=== PATIENT | female | born 1985 | race Caucasian/White ===

== ENCOUNTER 2017-05-26 10:23 | Emergency (ER) | payer OTHER ==
[2017-05-26 10:45] VITALS: BP 126/52
--- NOTE | 2017-05-26 11:15 | UC ---
Back Pain HPI - HPI Summary HPI Summary: PICKED UP HER 9 MONTH OLD SEVERAL HOURS AGO AND FELT A POP. NOW HAS LOW BACK PAIN. NO NUMBNESS/TINGLING OR SADDLE ANESTHESIA. NO H/O CHRONIC BACK PAIN. TOOK A PERCOCET WHICH SHE HAD FROM WHEN SHE WENT HOME POST AND IT HELPED. - History of Current Complaint Chief Complaint: UCBackPain Stated Complaint: BACK PAIN Time Seen by Provider: 05/26/17 10:59 Hx Obtained From: Patient, Family/Casing Finisher And Stuffer - DAD Hx Last Menstrual Period: IUD in place Onset/Duration: Sudden Onset, Lasting Hours, Still Present Timing: Constant Severity Initially: Moderate Severity Currently: Moderate Pain Intensity: 4 Pain Scale Used: 0-10 Numeric Back Pain: Is Discrete @ - MID LOW BACK Character: Sharp Aggravating: Movement Alleviating: Position Associated Signs And Symptoms: Positive: Negative - Allergies/Home Medications Allergies/Adverse Reactions: Allergies Allergy/AdvReac Type Severity Reaction Status Date / Time Morphine Allergy Severe Anaphylatic Verified 09/11/16 17:08 Shock Hydromorphone [From Dilaudid] Allergy Intermediate Rash Verified 09/11/16 17:08 PMH/Surg Hx/FS Hx/Imm Hx Previously Healthy: Yes - Surgical History Surgical History: None Surgery Procedure, Year, and Place: 2 c-sections; plate in jaw and rods in both femurs; wisdom teeth - Family History Known Family History: Positive: None Negative: Renal Disease - Social History Alcohol Use: None Substance Use Type: None Smoking Status (MU): Never Smoked Tobacco - Immunization History Most Recent Influenza Vaccination: 08/23/16 Most Recent Tetanus Shot: 06/19/16 Most Recent Pneumonia Vaccination: none Review of Systems Constitutional: Negative Skin: Negative Respiratory: Negative Cardiovascular: Negative Gastrointestinal: Negative Musculoskeletal: Decreased ROM, Myalgia All Other Systems Reviewed And Are Negative: Yes Physical Exam Triage Information Reviewed: Yes Appearance: Well-Appearing, Well-Nourished, Pain Distress - MODERATE Vital Signs: Initial Vital Signs Temp 98.7 F 05/26/17 10:42 Pulse 85 05/26/17 10:42 Resp 14 05/26/17 10:42 BP 126/52 05/26/17 10:42 Pulse Ox 98 05/26/17 10:42 Vital Signs Reviewed: Yes Eyes: Positive: Conjunctiva Clear ENT: Positive: Hearing grossly normal Neck: Positive: Supple Respiratory: Positive: No respiratory distress, No accessory muscle use Cardiovascular: Positive: Pulses Normal Abdomen Description: Positive: Soft Musculoskeletal: Positive: No Edema, ROM Limited @ - BACK Neurological: Positive: Alert Psychological: Positive: Age Appropriate Behavior Skin: Negative: rashes Diagnostics - Radiology LUMBAR SPINE XRAY Xray Interpretation: No Acute Changes - No radiographic evidence of acute fracture or dislocation involving the lumbar spine. Radiology Interpretation Completed By: Radiologist Back Pain Course/Dx - Differential Dx/Diagnosis Provider Diagnoses: ACUTE LOW BACK STRAIN Discharge - Discharge Plan Condition: Stable Disposition: HOME Prescriptions: Cyclobenzaprine TAB* [Flexeril TAB*] 10 mg PO BID PRN #30 tab PRN Reason: Pain Naproxen [Naproxen EC] 500 mg PO BID PRN #30 tab PRN Reason: Pain Patient Education Materials: Low Back Strain (ED), Lower Back Exercises (ED) Referrals: Sunshine Gorman MD [Primary Care Provider] - Additional Instructions: NO ACUTE CHANGES ON LUMBAR SPINE XRAY. BE SURE TO GO THROUGH SLOW RANGE OF MOTION AND STRETCHING EXERCISES DAILY YOU ARE ABLE TO PREVENT STIFFENING UP AND MAKING THE DISCOMFORT WORSE. SEEK FOLLOW-UP WITH YOUR PCP IF YOU ARE NOT IMPROVING EXPECTED OVER THE NEXT WEEK OR SO.
[2017-05-26] MEDS ORDERED: Ibuprofen TAB* 600 MG PO ONE (11:17)
--- NOTE | 2017-05-26 12:04 | RAD ---
INDICATION: Intense low back pain since lifting a 9-month-old child the previous night COMPARISON: CT abdomen pelvis September 11, 2016 TECHNIQUE: 3 views of the lumbar spine were obtained. FINDINGS: On the AP view there is very slight dextroconvex curvature with the apex at the L2/L3 intervertebral disc space. On the lateral view there is nonspecific straightening of the normal lumbar lordosis. The lumbar vertebra and facet joints are otherwise appropriately aligned. No acute fracture or dislocation is identified. Incidentally noted is a intrauterine device at the midline pelvis. IMPRESSION: No radiographic evidence of acute fracture or dislocation involving the lumbar spine.
== END 2017-05-26 12:25 | disposition home or self-care (01) ==
LOC: UCEAST 10:23
DX: S39.012A Strain of muscle, fascia and tendon of lower back, initial encounter (principal); Z88.5 Allergy status to narcotic agent; X50.0XXA Overexertion from strenuous movement or load, initial encounter
CPT/HCPCS: 72100; 99212; A9270-GY; G0463

== ENCOUNTER 2017-12-16 07:31 | Emergency (ER) | payer OTHER ==
[2017-12-16 07:52] VITALS: BP 92/56
--- NOTE | 2017-12-16 09:10 | UC ---
Ly Méndez Gabriel, scribed for Maura Guerra DO on 12/16/17 at 0824 . Complaint Female HPI - HPI Summary HPI Summary: This patient is a 32 year old F presenting to [facility] [place] with a chief complaint of hematuria since last night at 1999. Patient reports a headache but suffers from them occasionally. Patient denies dysuria, lower back pain, flank pain, fever, ABD pain, pelvic pain, n/v/d, fever, and chills. Pt states when she was a child she saw a specialist for this as well as protein in her urine but was not diagnosed and problem resolved spontaneously. Pt took ibuprofen for a MANNING last night after she was urinating blood. - History Of Current Complaint Chief Complaint: UCGU Stated Complaint: BLOOD IN URINE Time Seen by Provider: 12/16/17 08:07 Hx Obtained From: Patient Hx Last Menstrual Period: 2 weeks ago Onset/Duration: Lasting Days - 1, Still Present Timing: Constant Severity Initially: Severe Severity Currently: Severe Pain Intensity: 0 Pain Scale Used: 0-10 Numeric Associated Signs And Symptoms: Positive: Negative - dysuria, lower back pain, flank pain, fever, ABD pain, pelvic pain, n/v/d, fever, chills. - Allergies/Home Medications Allergies/Adverse Reactions: Allergies Allergy/AdvReac Type Severity Reaction Status Date / Time hydromorphone Allergy Rash Verified 12/16/17 07:44 morphine Allergy Anaphylatic Verified 12/16/17 07:44 Shock Home Medications: Home Medications Ibuprofen 600 mg PO Q6HR PRN 12/16/17 [History Confirmed 12/16/17] Mini Pill Control Pill 1 tab PO DAILY 12/16/17 [History] Vitamin TAB* 1 tab PO DAILY 12/16/17 [History Confirmed 12/16/17] PMH/Surg Hx/FS Hx/Imm Hx Other GI/ History: hematuria Other History Of: Negative For: HIV, Hepatitis B - Surgical History Surgical History: None Surgery Procedure, Year, and Place: 3 c-sections; plate in jaw and rods in both femurs; wisdom teeth - Family History Known Family History: Negative: Renal Disease, Respiratory Disease, Seizure Disorder - Social History Lives: With Family Alcohol Use: None Substance Use Type: None Smoking Status (MU): Never Smoked Tobacco - Immunization History Most Recent Influenza Vaccination: 08/23/16 Most Recent Tetanus Shot: 06/19/16 Most Recent Pneumonia Vaccination: none Review of Systems Constitutional: Negative - fever chills Gastrointestinal: Negative - ABD pain Genitourinary: Hematuria Neurological: Headache All Other Systems Reviewed And Are Negative: Yes Physical Exam Triage Information Reviewed: Yes Vital Signs: Initial Vital Signs Temp 98.6 F 12/16/17 07:47 Pulse 74 12/16/17 07:47 Resp 18 12/16/17 07:47 BP 92/56 12/16/17 07:47 Pulse Ox 100 12/16/17 07:47 Vital Signs Reviewed: Yes Abdominal Exam: Normal Abdomen Description: Positive: Nontender, Soft. Negative: CVA Tenderness (R), CVA Tenderness (L), Distended, Guarding, McBurney's Point Tenderness, Peritoneal Signs - Additional Comments Appearance: Well-Appearing, No Pain Distress, Well-Nourished Eyes: conjunctiva clear, no discharge ENT: Hearing grossly normal, no muffled/hoarse voice. Hearing grossly normal, normal voice. Neck: Normal, Supple Respiratory/Lung Sounds: Lungs clear, Normal breath sounds, No respiratory distress, No accessory muscle use Cardiovascular: RRR, No murmur Abdomen (if she checks): Nontender, Soft, no guarding, not distended Bowel Sounds (if she checks): Present Musculoskeletal: Normal Neurological: Alert, muscle tone normal Psychiatric:Normal, age appropriate behavior Skin: Normal, Warm, Dry, Normal color Complaint Female Dx - Course Course Of Treatment: Pts urine will be examined in further due to it being too dark for a dip. Patient will be discharged and follow up from PCP. The patient is agreeable with this plan. Medications reviewed. Allergies reviewed. Pt was diagnosed with hematuria and UTI. Medications given. - Differential Dx/Diagnosis Provider Diagnoses: hematuria Discharge - Discharge Plan Condition: Stable Disposition: HOME Prescriptions: Cephalexin CAP* [Keflex CAP*] 500 mg PO BID #14 cap Patient Education Materials: Urinary Tract Infection in Women (DC), Hematuria ( ED) Referrals: Sunshine Gorman MD [Primary Care Provider] - 1 Day Additional Instructions: WE ARE SENDING YOUR URINE FOR MICROSCOPY AND CULTURE. THE RESULTS WILL BE SENT TO YOU PCP. YOU WILL BE CALLED WITH ANY CONCERNING RESULTS. CEPHALEXIN: The antibiotic you've been prescribed is a member of the cephalosporin class. This type of antibiotic covers a wide variety of infections, including those of the skin, lungs, and urinary tract. It's useful for staph infections. This antibiotic is slightly similar to the penicillin family. In rare cases , a person who is allergic to penicillin will also be allergic to this medication. If you have had a severe allergic reaction to penicillin, and have not taken this antibiotic since that time, notify your doctor. Antibiotics which cover many germs ("broad spectrum" antibiotics) are more likely to cause diarrhea or "yeast" infections. Women prone to vaginal yeast problems may suffer an attack after taking this antibiotic. In infants, oral thrush (white spots "stuck" on the cheek) or yeast diaper rash may result. See your doctor if these problems occur. Call at once if you develop itching, hives , shortness of breath, or lightheadedness. ANYTIME YOU TAKE AN ANTIBIOTIC, IT IS IMPORTANT TO REPLENISH THE BODY'S SUPPLY OF "GOOD BACTERIA." YOU CAN GET GOOD BACTERIA FROM HIGH QUALITY CULTURED FOODS SUCH LOCAL YOGURT, SOUR KRAUT, ELENI ALISA, NATURALLY FERMENTED PICKLES AND PROBIOTIC DRINKS. YOU CAN ALSO GET GOOD BACTERIA FROM A PROBIOTIC SUPPLEMENT. The documentation as recorded by the Ly jones Gabriel accurately reflects the service I personally performed and the decisions made by me, Maura Guerra DO.
[2017-12-16 14:27] LABS: Urine Appearance Turbid; Urine Blood 3+ (Negative); Urine Color Amber; Urine Ketones Negative (Negative); Urine Protein 2+(100 mg/dL) (Negative); Urine Specific Gravity 1.035 (1.010-1.030); Urine Urobilinogen Negative (Negative)
--- NOTE | 2017-12-18 17:31 | UC ---
- Progress Note Progress Note: Pt's U/A with 2+ protein and 3+ blood. No sign of infection, but was placed on keflex. Please see how she is feeling. Needs f/u with her PCP within 1 week.
== END 2017-12-16 08:46 | disposition home or self-care (01) ==
LOC: UCEAST 07:31
DX: R31.9 Hematuria, unspecified (principal)
CPT/HCPCS: 81003; 81015; 99212; G0463

== ENCOUNTER → 2018-08-09 12:53 | Emergency (ER) | payer OTHER ==
[2018-08-09 14:35] VITALS: BP 114/82
[2018-08-09 14:57] LABS: Hematocrit 36 % (35-47); Hemoglobin 12.2 g/dl (12.0-16.0); Mean Corpuscular HGB Conc 34 g/dl (31-36); Mean Corpuscular Hemoglobin 30 pg (27-31); Mean Corpuscular Volume 88 fL (80-97); Mean Platelet Volume 10.3 um3 (7.4-10.4); Platelet Count 147 10^3/ul (150-450); Red Blood Count 4.11 10^6/ul (4.00-5.40); Red Cell Distribution Width 14 % (10.5-15); White Blood Count 7.1 10^3/ul (3.5-10.8)
[2018-08-09 15:16] LABS: EGFR Non-African American 129.2 (>60)
[2018-08-09 15:17] LABS: Urine Appearance Cloudy; Urine Blood 2+ (Negative); Urine Color Yellow; Urine Ketones Negative (Negative); Urine Protein Negative (Negative); Urine Red Blood Cell 3+(>10/hpf) (Absent); Urine Urobilinogen Negative (Negative); Urine White Blood Cell 1+(6-10/hpf) (Absent)
--- NOTE | 2018-08-09 15:17 | ED ---
- HPI Summary HPI Summary: This pt is a 33 y/o female, currently 5 weeks , presenting to [facility] [place]/o vaginal bleeding since this morning. Pt reports she began spotting this morning around 06:00, which was described as very light pink. She states that as the day progressed spotting became darker. In the ED currently pt notes she had vaginal bleeding with quite a lot of blood. Additionally reports abdominal cramping and nausea. Denies vomiting, diarrhea, constipation. Pt has had miscarriages in the past. LMP: 07/08/18. - History of Current Complaint Chief Complaint: EDVaginalBleeding Stated Complaint: 5 WKS PREG/CRAMPING & SPOTTING Time Seen by Provider: 08/09/18 15:03 Hx Obtained From: Patient Chief Complaint: Pain, Vaginal Bleeding Onset/Duration: Started Hours Ago, Still Present Timing: Lasting Hours Current Severity: Moderate Pain Intensity: 6 Location of Pain: Diffuse Character: Cramping Aggravating Factors: Nothing Alleviating Factors: Nothing Associated Signs and Symptoms: Positive: Nausea, Vaginal Bleeding or Discharge - POS: vaginal bleeding. Negative: Fever, Vomiting, Other: - diarrhea, constipation - Assessment Hx Now: Yes Hx : 6 Hx Para: 3 Hx Last Menstrual Period: 07/08/18 - Additional Pertinent History Maternal Blood Type and Rh: O Positive - Allergies/Home Medications Allergies/Adverse Reactions: Allergies Allergy/AdvReac Type Severity Reaction Status Date / Time hydromorphone Allergy Rash Verified 08/09/18 13:01 morphine Allergy Anaphylatic Verified 08/09/18 13:01 Shock PMH/Surg Hx/FS Hx/Imm Hx Endocrine/Hematology History: Denies: Hx Diabetes, Hx Thyroid Disease Cardiovascular History: Denies: Hx Hypertension Respiratory History: Denies: Hx Asthma, Hx Chronic Obstructive Pulmonary Disease (COPD) GI History: Denies: Hx Ulcer Neurological History: Reports: Hx Migraine - since childhood Denies: Other Neuro Impairments/Disorders Psychiatric History: Reports: Hx Anxiety, Hx Depression, Other Psychiatric Issues/Disorders - migraine with aura - Surgical History Surgery Procedure, Year, and Place: 3 c-sections; plate in jaw and rods in both femurs; wisdom teeth Infectious Disease History: No Infectious Disease History: Denies: Hx Clostridium Difficile, Hx Hepatitis, Hx Human Immunodeficiency Virus (HIV), Hx of Known/Suspected MRSA, Hx Shingles, Hx Tuberculosis, Hx Known/ Suspected VRE, Hx Known/Suspected VRSA, History Other Infectious Disease, Traveled Outside the [place] in Last 30 Days - Family History Known Family History: Negative: Renal Disease, Respiratory Disease, Seizure Disorder - Social History Alcohol Use: None Substance Use Type: Reports: None Smoking Status (MU): Never Smoked Tobacco Review of Systems Negative: Fever, Chills Positive: Abdominal Pain, Nausea. Negative: Vomiting, Diarrhea, Other - constipation Genitourinary: Other - vaginal bleeding All Other Systems Reviewed And Are Negative: Yes Physical Exam - Summary Physical Exam Summary: VITAL SIGNS: Reviewed. GENERAL: Patient is a well-developed and nourished female who is lying comfortable in the stretcher. Patient is not in any acute respiratory distress. HEAD AND FACE: No signs of trauma. No ecchymosis, hematomas or skull depressions. No sinus tenderness. EYES: PERRLA, EOMI x 2, No injected conjunctiva, no nystagmus. EARS: Hearing grossly intact. Ear canals and tympanic membranes are within normal limits. MOUTH: Oropharynx within normal limits. NECK: Supple, trachea is midline, no adenopathy, no JVD, no carotid bruit, no c- spine tenderness, neck with full ROM. CHEST: Symmetric, no tenderness at palpation LUNGS: Clear to auscultation bilaterally. No wheezing or crackles. CVS: Regular rate and rhythm, S1 and S2 present, no murmurs or gallops appreciated. ABDOMEN: Soft, non-tender. No signs of distention. No rebound, no guarding, and no masses palpated. Bowel sounds are normal. EXTREMITIES: FROM in all major joints, no edema, no cyanosis or clubbing. NEURO: Alert and oriented x 3. No acute neurological deficits. Speech is normal and follows commands. SKIN: Dry and warm - Physical Exam Triage Information Reviewed: Yes Vital Signs On Initial Exam: Initial Vitals Temp Pulse Resp BP Pulse Ox 97.8 F 82 18 111/61 99 08/09/18 12:58 08/09/18 12:58 08/09/18 12:58 08/09/18 12:58 08/09/18 12:58 Vital Signs Reviewed: Yes Diagnostics - Vital Signs Vital Signs Temp Pulse Resp BP Pulse Ox 08/09/18 14:34 97.4 F 74 18 114/82 100 08/09/18 12:58 97.8 F 82 18 111/61 99 - Laboratory Lab Results: Lab Results 08/09/18 Range/Units 14:36 WBC 7.1 (3.5-10.8) 10^3/ul RBC 4.11 (4.00-5.40) 10^6/ul Hgb 12.2 (12.0-16.0) g/dl Hct 36 (35-47) % MCV 88 (80-97) fL MCH 30 (27-31) pg MCHC 34 (31-36) g/dl RDW 14 (10.5-15) % Plt Count 147 L (150-450) 10^3/ul MPV 10.3 (7.4-10.4) um3 Neut % (Auto) Pending Lymph % (Auto) Pending [place] % (Auto) Pending Eos % (Auto) Pending Baso % (Auto) Pending Absolute Neuts (auto) Pending Absolute Lymphs (auto) Pending Absolute Monos (auto) Pending Absolute Eos (auto) Pending Absolute Basos (auto) Pending Absolute Nucleated RBC Pending Nucleated RBC % Pending Result Diagrams: 08/09/18 14:36 08/09/18 14:36 Lab Statement: Any lab studies that have been ordered have been reviewed, and results considered in the medical decision making process. - Ultrasound No standard instances Ultrasound Interpretation: Positive (See Comments) - Transvaginal US IMPRESSION : No intrauterine gestation is identified. The differential includes early intrauterine gestation, missed , or ectopic . Recommend correlation with serial beta-hcg levels and follow-up imaging. Dr. iHgh has reviewed this report. Ultrasound Interpretation Completed By: Radiologist Re-Evaluation - Re-Evaluation First Eval Re-Evaluation Time: 17:21 Comment: Pt declines pelvic exam. Second Eval Re-Evaluation Time: 17:23 Comment: Pt would like to go home at this time without completing further work up. She will sign AMA. Course/Dx - Course Assessment/Plan: This pt is a 33 y/o female, currently 5 weeks , presenting to [facility] c/o vaginal bleeding since this morning. Pt reports she began spotting this morning around 06:00, which was described as very light pink. She states that as the day progressed spotting became darker. In the ED currently pt notes she had vaginal bleeding with quite a lot of blood. Additionally reports abdominal cramping and nausea. Denies vomiting, diarrhea, constipation. Pt has had miscarriages in the past. LMP: 07/08/18. Blood work without any significant abnormality. Urinalysis contaminated. Pelvic U/S IMPRESSION: NO INTRAUTERINE GESTATION IS IDENTIFIED. THE DIFFERENTIAL INCLUDES EARLY INTRAUTERINE GESTATION, MISSED , OR ECTOPIC . RECOMMEND CORRELATION WITH SERIAL. BETA-HCG LEVELS AND FOLLOW-UP IMAGING. At this time I offered the patient to do a pelvic exam however the patient declined. Patient reports that she wants to go home because she has had 3 cases patient is taking over. I discussed with the patient that I have not discussed the case with the [employer] doctor, however the patient requested signing AGAINST MEDICAL ADVICE and she will go home and follow up with the [employer]. I extensively discussed with the patient the benefits and risk of leaving AMA. I also discussed the alternatives to leaving AMA, however, the patient still insists to leave the hospital AMA. The patient is clinically sober, free from distracting injury, appears to have intact insight, judgment, reason and in my opinion has the capacity to make decisions. Patient has full capacity and is cognitively intact. The patient presents with 4 weeks and vaginal bleeding, I have explained that I am concerned with ectopic , threatened and that it may represent significant risk for the fetus and mother. The patient verbalizes the understanding of my concerns. I have also explained the results of the labs and even though they are normal the primary nurse and the charge nurse also strongly recommended that the patient should not leave AMA. Patient understands the risk of leaving AMA, which includes but is not restricted to . Patient signed the AMA form. Patient was also advised to return to ED if she changes her mind or if she has worsening or new symptoms. Patient understands and agrees. Again, I discussed all the findings and test results with the patient. Patient was instructed to return to the emergency room immediately if any of the symptoms return or worsens. Plan of care was discussed with the patient and she understands and agrees. All questions were answered at patient satisfaction. There were no further complaints or concerns. Patient signed AMA and she was discharged AMA. Pt is hemodynamically stable, alert and oriented x3. - Diagnoses Provider Diagnoses: Vaginal bleeding Discharge - Sign-Out/Discharge Documenting (check all that apply): Patient Departure - Pt left against medical advice - Discharge Plan Condition: Stable Disposition: AGAINST MEDICAL ADVICE Referrals: Jesus Barron MD [Primary Care Provider] - - Billing Disposition and Condition Condition: STABLE Disposition: Against Medical Advice - Attestation Statements Document Initiated by Scribe: Yes Documenting Scribe: Tia Pinto Provider For Whom Scribe is Documenting (Include Credential): Angus High MD Scribe Attestation: ITia, scribed for Angus High MD on 08/10/18 at 0848. Scribe Documentation Reviewed: Yes Provider Attestation: The documentation as recorded by the Tia jones accurately reflects the service I personally performed and the decisions made by me, Angus High MD
[2018-08-09 15:30] LABS: ABS Basophils 0 10^3/ul (0-0.2); ABS Eosinophils 0.1 10^3/ul (0-0.6); ABS Lymphocytes 1.8 10^3/ul (1.0-4.8); ABS Monocytes 0.4 10^3/ul (0-0.8); ABS Neutrophils 4.8 10^3/ul (1.5-7.7); ABS Nucleated RBC 0 10^3/ul; Eosinophil % 1.2 % (0-6); Lymphocyte % 24.8 % (25-47); Nucleated Red Blood Cells % 0
--- NOTE | 2018-08-09 16:00 | RAD ---
HISTORY: Vaginal bleeding, 5 weeks , gestational age by dates of weeks and 4 days. Beta-hCG level of 8.5. COMPARISONS: September 11, 2016 TECHNIQUE: Multiple transverse and longitudinal ultrasound images were obtained of the pelvis using grayscale, color Doppler, and spectral Doppler imaging using the endovaginal transducer. FINDINGS: UTERUS: The uterus measures 11.4 x 5.5 x 6.5 cm. The uterus is normal in shape, size, contour, and echotexture. ENDOMETRIUM: The endometrial stripe is smooth. The endometrium measures 1 cm in thickness. No intrauterine gestation is identified. CUL-DE-SAC: There is no free fluid within the cul-de-sac. RIGHT OVARY: The right ovary measures 3.7 x 1.6 x 3.2 cm. Normal arterial and venous waveforms are identifiable within the ovary on spectral Doppler imaging. LEFT OVARY: The left ovary measures 4.5 x 2.2 x 4.4 cm. Normal arterial and venous waveforms are identifiable within the ovary on spectral Doppler imaging. BLADDER: The bladder is not well visualized. OTHER: None IMPRESSION: NO INTRAUTERINE GESTATION IS IDENTIFIED. THE DIFFERENTIAL INCLUDES EARLY INTRAUTERINE GESTATION, MISSED , OR ECTOPIC . RECOMMEND CORRELATION WITH SERIAL BETA-HCG LEVELS AND FOLLOW-UP IMAGING.
== END | disposition left against medical advice (07) ==
LOC: ED 12:53
DX: N93.9 Abnormal uterine and vaginal bleeding, unspecified (principal)
CPT/HCPCS: 36415; 76817; 80053; 81003; 81015; 84702; 85025; 86900; 86901; 87086; 99282

== ENCOUNTER 2018-09-23 18:44 | Emergency (ER) | payer OTHER ==
--- OUTSIDE RECORDS SUMMARY | 2018-09-23 18:57 | XMS REPORT | Continuity of Care Document ---
:1985 External Reference #:[id number] Author Name Jessenia Fox CNM Address [address] [place] [address] Care Team Providers Name Role Phone Jesus Barron M.D. Primary Care Physician Unavailable Payers Type Date Identification Numbers Payment Provider Subscriber Effective: Policy Number: [id number] [employer]/BS [facility] 2005 [place] Expires: 2011 PayID: [id number] [address] [address] [place] [id number] Effective: 2011 Policy Number: [id number] [employer] BC/BS [facility] Expires: 2015 PayID: [id number] [id number] [id number] Effective: 2011 Policy Number: [employer] BC/BS [facility] [id number] [place] Expires: 2011 PayID: [id number] [place] [id number] Expires: 2013 Policy Number: [id number] Medicaid [facility] PayID: [id number] [address] [place] [address] Policy Number: [id number] [facility] PayID: [id number] [address] [place] [address] Policy Number: [id number] Medicaid [facility] PayID: [id number] [address] [place] [address] Advance Directives Description No Information Available Problems Date Description Provider Status Onset: 12/30/2012 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 Family History Date Family Member(s) Problem(s) Comments Father Benign Prostate Hypertrophy (BPH) Father Lymphoma Onset: (age 24 Mother Uterine Tumors Fibroids/endometriosi Years) s-hysterectomy 1985 Number of Children 3 First Daughter A&W Second Daughter A&W Third Daughter A&W Number of Siblings Siblings: 1 First Sister A&W First Sister uterin tumer Paternal Grandfather due to IN () Paternal Grandmother Parkinson's Disease Paternal Grandmother due to () Parkinsons Maternal Grandfather due to Lymphoma () Social History Type Date Description Comments Sex Unknown Education Highest level of education completed is 12th grade, has Ged. 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 Cigarette Use Never smoked cigarettes Alcohol Denies alcohol use Tobacco Use Start: Unknown Patient has never smoked Drug Use Denies drug use Smoking Status Reviewed: 08/13/18 Patient has never smoked Daily Caffeine Drinks on average 2 cups of coffee a day Exercise Type/Frequency Exercises rarely Current Seat Belt/Car Seat Always uses a seat belt Currently Active The patient is currently sexually active Contraceptive Methods Withdrawal STD's No STD history SHASTA: 12/22/2012 Estimated Date of Based on LMP Delivery Allergies, Adverse Reactions, Alerts Date Description Reaction Status Severity Comments 05/05/2008 Morphine Active 09/08/2008 Dilaudid Active Medications Medication Date Status Form Strength Qnty SIG Indications Ordering Provider / Active Unknown 0000 Mirena (52 MG) 10/31/ Hx IUD 20mcg/24HR Phaelon 2016 - MD Yari 2017 Norethindrone 09/25/ Hx Tablets 0.35mg 84tab take 1 tab Phaelon 2015 s by mouth MD Yari 11/29/ every day 2017 Oxycodone-Aceta 08/23/ Hx Tablets 5-325mg 28tab take 1-2 Phaelon minophen 2015 - s tabs by MD Yari 10/30/ mouth q4-6 2017 hours as needed for pain Ibuprofen 08/23/ Hx Tablets 600mg 30tab take one tab Phaelon 2015 - by mouth MD Yari 10/30/ every 6 2017 hours as needed for pain Zatean-PN Dha 06/02/ Hx Capsules 27-0.6-0.4 30cap 1 by mouth Temitope 2016 - -300mg s every day Leslie, 07/25/ LM 2018 Zofran 09/08/ Hx Tablets 8mg 30tab 1 by mouth Gaby 2013 - s twice a day Jump, 09/21/ as needed ANP-C 2013 Plus 12/15/ Hx Tablets 27-1mg 90tab 1 by mouth Isabela 2013 - s every day Slick, 06/02/ CNM 2015 Diflucan 03/11/ Hx Tablets 150mg 1tabs 1 po times 1 624.8 Gaby 2012 - Jump, 12/10/ ANP-C 2013 Nor-qd 02/10/ Hx 0.35mg 28uni 1 po qd V24.2 Marco Marshall 2012 - ts Gelber, 03/11/ M.D. 2012 Metronidazole 02/05/ Hx Gel 0.75% 1tx 1 Gaby Vaginal 2012 - application Jump, 02/10/ vaginally ANP-C 2012 qhs x 5 days Fluconazole 01/15/ Hx Tablets 150mg 2tabs 1 tablet po, Isabela 2012 - repeat in 2 Kruger, 02/05/ days prn CNM 2011 Percocet 12/30/ Hx 5-325mg 20uni 1 po q 6hrs V72.83 Marco Marshall 2012 - ts as needed Gelgaby, 02/05/ for pain M.D. 2012 Motrin 12/30/ Hx Tablets 600mg 30tab take one V72.83 Marco Marshall 2012 - s tablet q6h Gelgaby, 02/05/ prn pain M.D. 2011 Ursodiol 12/16/ Hx Tablets 500mg 40tab 1 po bid Rupal 2012 - s Roshni 01/08/ Donna, 2012 Ondansetron HCL 05/31/ Hx Tablets 4mg 30tab 1-2 tablets Isabela 2011 - s every 6 hrs Slick 01/08/ prn nausea CNM 2012 Cipro 02/10/ Hx Tablets 250mg 10tab 1 po bid x 5 Gaby 2010 - s Jump, 02/15/ ANP-C 2010 Diflucan 02/07/ Hx Tablets 150mg 1tabs 1 po times 1 616.10 Gaby 2010 - Jump, 02/10/ ANP-C 2010 Plus 06/19/ Hx Tabs 27-1mg 90tab take 1 Gaby 2009 - s tablet by Michelle, 12/08/ mouth once ANP-C 2013 daily Terconazole 03/04/ Hx Cream 0.4% 1 applicator Pooja 2009 - hs x 7 Berta, 03/03/ CNM 2009 Nor-qd 03/04/ Hx Tablets 0.35mg 1mon take one Gaby 2009 - pill each , 01/28/ day. Start ANP-C 2010 pack tomorrow Percocet 05/04/ Hx Tablets 5-325mg 40tab 1-2 tabs po Marco A. 2008 - q4 hrs prn Gelber, 03/03/ M.DArin 2009 Terazol 7 04/26/ Hx Cream 0.4% 45gm 1 applicator Pooja 2008 - hs x 7 Berta, 03/04/ CNM 2009 Phenergan 09/17/ Hx Tablets 25mg 30tab 1 tablet po Weber 2007 - q 6 hrs prn Carbone 02/26/ nausea , CNM 2008 Expecta Lipil 09/08/ Hx Capsules 200mg 30cap 1 po qd Isabela 2007 - s Kruger, 02/26/ CNM 2008 05/05/ Hx Tablets 30tab 1 po qd Isabela Vitamins 2007 - Slick, 03/25/ CNM 2009 Micronor 01/02/ Hx Tablets 0.35mg 3PKG3 1 PO qd Gaby 2007 - , [facility] Micronor / Hx Unknown 0000 - 2009 Iron / Hx Tablets 325(65Fe) 1 po qd Unknown 0000 - mg 2017 Medications Administered in Office Medication Date Status Form Strength Qnty SIG Indications Ordering Provider PT SCRN Tbco Administered Injection Baclawski, Id as Non User 018 MD Samantha No PT Tbco Administered Injection Gaby SCRN RNG 018 IMELDA Martinez PT SCRN Tbco Administered Injection Gaby Id as Non User 018 IMELDA Martinez Immunizations CPT Code Status Date Vaccine Lot # [id number] Given 08/23/2016 Influenza Virus Vaccine, Quadrivalent, Split, [id number] Preservative Free [id number] Given 06/19/2016 Tetnus, Diptheria Toxoids And Acellular Pertussis, [id number] PT > 7Yrs Old Vital Signs Date Vital Result Comment 09/05/2018 2:41pm BP Systolic 106 mmHg BP Diastolic 60 mmHg Height 61.5 inches 5'1.50" Weight 123.00 lb BMI (Body Mass Index) 22.9 kg/m2 Last Menstrual Period 3350841 7 Parity 3 08/13/2018 2:39pm BP Systolic 108 mmHg BP Diastolic 58 mmHg Height 61.5 inches 5'1.50" Weight 121.00 lb BMI (Body Mass Index) 22.5 kg/m2 Last Menstrual Period 3208612 7 Parity 3 07/25/2018 2:46pm BP Systolic 116 mmHg BP Diastolic 68 mmHg Height 61.5 inches 5'1.50" Weight 121.00 lb BMI (Body Mass Index) 22.5 kg/m2 Last Menstrual Period 4142926 7 Parity 3 12/04/2016 3:15pm BP Systolic 108 mmHg BP Diastolic 56 mmHg Height 63 inches 5'3" Weight 141.00 lb BMI (Body Mass Index) 25.0 kg/m2 7 Parity 3 10/31/2016 3:12pm BP Systolic 98 mmHg BP Diastolic 58 mmHg Height 63 inches 5'3" Weight 145.00 lb BMI (Body Mass Index) 25.7 kg/m2 7 Parity 3 09/25/2016 8:15am BP Systolic 96 mmHg BP Diastolic 56 mmHg Body Temperature 98.7 F Height 63 inches 5'3" Weight 148.00 lb BMI (Body Mass Index) 26.2 kg/m2 7 Parity 3 09/15/2016 9:02am BP Systolic 102 mmHg BP Diastolic 68 mmHg Height 63 inches 5'3" Weight 151.00 lb BMI (Body Mass Index) 26.7 kg/m2 Last Menstrual Period 9427073 7 Parity 3 09/07/2016 10:41am BP Systolic 118 mmHg BP Diastolic 70 mmHg Body Temperature 98.0 F Oral Height 63 inches 5'3" Weight 155.00 lb BMI (Body Mass Index) 27.5 kg/m2 Last Menstrual Period 3097641 7 Parity 3 08/23/2016 2:44pm BP Systolic 106 mmHg BP Diastolic 64 mmHg Body Temperature 98.6 F Heart Rate 88 /min Respiratory Rate 16 /min Height 63 inches 5'3" Weight 171.00 lb BMI (Body Mass Index) 30.3 kg/m2 3 Parity 2 01/31/2016 8:05am BP Systolic 114 mmHg BP Diastolic 64 mmHg Height 63 inches 5'3" Weight 118.00 lb BMI (Body Mass Index) 20.9 kg/m2 Last Menstrual Period 2034903 3 Parity 2 12/15/2014 9:29am BP Systolic 98 mmHg BP Diastolic 56 mmHg Height 63 inches 5'3" Weight 116.00 lb BMI (Body Mass Index) 20.5 kg/m2 Last Menstrual Period 6004582 6 Parity 2 10/27/2014 8:55am BP Systolic 100 mmHg BP Diastolic 60 mmHg Height 62 inches 5'2" Weight 113.00 lb BMI (Body Mass Index) 20.7 kg/m2 Last Menstrual Period 4985034 5 Parity 2 09/28/2014 10:51am BP Systolic 104 mmHg BP Diastolic 50 mmHg Height 62 inches 5'2" Weight 109.00 lb BMI (Body Mass Index) 19.9 kg/m2 5 Parity 2 09/21/2014 10:13am BP Systolic 102 mmHg BP Diastolic 68 mmHg Height 62 inches 5'2" Weight 109.00 lb BMI (Body Mass Index) 19.9 kg/m2 Last Menstrual Period 7884987 5 Parity 2 12/15/2013 2:08pm BP Systolic 104 mmHg BP Diastolic 60 mmHg Height 62 inches 5'2" Weight 116.00 lb BMI (Body Mass Index) 21.2 kg/m2 Last Menstrual Period 8893536 4 Parity 2 03/11/2013 3:26pm BP Systolic 108 mmHg BP Diastolic 64 mmHg Height 62 inches 5'2" Weight 128.00 lb BMI (Body Mass Index) 23.4 kg/m2 Last Menstrual Period 3133089 4 Parity 2 02/21/2013 9:22am BP Systolic 100 mmHg BP Diastolic 50 mmHg Height 62 inches 5'2" Weight 131.00 lb BMI (Body Mass Index) 24.0 kg/m2 4 Parity 2 02/10/2013 3:22pm BP Systolic 108 mmHg BP Diastolic 64 mmHg Height 62 inches 5'2" Weight 132.00 lb BMI (Body Mass Index) 24.1 kg/m2 4 Parity 2 02/05/2013 12:45pm BP Systolic 104 mmHg BP Diastolic 64 mmHg Height 62 inches 5'2" Weight 131.00 lb BMI (Body Mass Index) 24.0 kg/m2 Last Menstrual Period 9608675 4 Parity 2 01/08/2013 9:11am BP Systolic 100 mmHg BP Diastolic 62 mmHg Body Temperature 98.0 F Height 62 inches 5'2" Weight 141.00 lb BMI (Body Mass Index) 25.8 kg/m2 Last Menstrual Period 6396422 4 Parity 2 12/30/2012 9:08am BP Systolic 110 mmHg BP Diastolic 60 mmHg Body Temperature 98.6 F Height 62 inches 5'2" Weight 156.00 lb BMI (Body Mass Index) 28.5 kg/m2 Last Menstrual Period 0 06/11/2012 8:33am BP Systolic 98 mmHg BP Diastolic 52 mmHg Height 61.75 inches 5'1.75" Weight 114.00 lb BMI (Body Mass Index) 21.0 kg/m2 Last Menstrual Period 0876899 4 Parity 1 05/20/2012 2:46pm BP Systolic 102 mmHg BP Diastolic 60 mmHg Height 61.75 inches 5'1.75" Weight 115.00 lb BMI (Body Mass Index) 21.2 kg/m2 Last Menstrual Period 3510090 2 Parity 1 04/02/2012 8:06am BP Systolic 102 mmHg BP Diastolic 60 mmHg Height 61.75 inches 5'1.75" Weight 117.00 lb BMI (Body Mass Index) 21.6 kg/m2 Last Menstrual Period 9394415 1 Parity 1 03/19/2012 2:33pm BP Systolic 100 mmHg BP Diastolic 60 mmHg Height 61.75 inches 5'1.75" Weight 121.00 lb BMI (Body Mass Index) 22.3 kg/m2 Last Menstrual Period 6447044 1 Parity 1 08/10/2011 2:00pm BP Systolic 90 mmHg BP Diastolic 54 mmHg Height 61.75 inches 5'1.75" Weight 113.00 lb BMI (Body Mass Index) 20.8 kg/m2 Last Menstrual Period 0291515 1 Parity 1 02/23/2011 9:33am BP Systolic 100 mmHg BP Diastolic 60 mmHg Height 62 inches 5'2" Weight 109.00 lb BMI (Body Mass Index) 19.9 kg/m2 Last Menstrual Period 7072851 3 Parity 1 02/07/2011 2:45pm BP Systolic 104 mmHg BP Diastolic 66 mmHg Weight 114.00 lb Last Menstrual Period 4995262 3 Parity 1 04/25/2010 2:41pm BP Systolic 92 mmHg BP Diastolic 62 mmHg Height 61.5 inches 5'1.50" Weight 113.00 lb BMI (Body Mass Index) 21.0 kg/m2 Last Menstrual Period 0990439 3 Parity 1 03/23/2010 3:10pm BP Systolic 82 mmHg BP Diastolic 42 mmHg Height 61.5 inches 5'1.50" Weight 114.00 lb BMI (Body Mass Index) 21.2 kg/m2 Last Menstrual Period 4514192 1 Parity 1 03/04/2010 2:24pm BP Systolic 106 mmHg BP Diastolic 68 mmHg Height 62 inches 5'2" Weight 111.00 lb BMI (Body Mass Index) 20.3 kg/m2 Last Menstrual Period 7132623 09/15/2009 2:22pm BP Systolic 106 mmHg BP Diastolic 62 mmHg Height 62 inches 5'2" Weight 121.00 lb BMI (Body Mass Index) 22.1 kg/m2 Last Menstrual Period 5759530 3 Parity 1 06/11/2009 1:48pm BP Systolic 112 mmHg BP Diastolic 72 mmHg Body Temperature 97.6 F Height 62 inches 5'2" Weight 128.00 lb BMI (Body Mass Index) 23.4 kg/m2 05/06/2009 9:19am Body Temperature 98.5 F Height 62 inches 5'2" Weight 147.00 lb BMI (Body Mass Index) 26.9 kg/m2 Last Menstrual Period 0 1 Parity 1 05/04/2009 1:34pm BP Systolic 112 mmHg BP Diastolic 74 mmHg Body Temperature 98.3 F 09/08/2008 10:54am BP Systolic 110 mmHg BP Diastolic 62 mmHg Height 62 inches 5'2" Weight 112.00 lb BMI (Body Mass Index) 20.5 kg/m2 Last Menstrual Period 2776136 05/18/2008 10:04am BP Systolic 108 mmHg BP Diastolic 72 mmHg Height 63 inches 5'3" Weight 111.00 lb BMI (Body Mass Index) 19.7 kg/m2 05/05/2008 3:52pm BP Systolic 104 mmHg BP Diastolic 62 mmHg Height 63 inches 5'3" Weight 111.00 lb BMI (Body Mass Index) 19.7 kg/m2 Last Menstrual Period 6541144 0 01/03/2008 3:29pm BP Systolic 96 mmHg BP Diastolic 62 mmHg Height 63 inches 5'3" Weight 115.00 lb BMI (Body Mass Index) 20.4 kg/m2 Results Test Date Facility Test Result H/L Range Note Laboratory test 09/05/2018 [facility] HCG <pending> finding [place] [address] [phone] Laboratory test 08/12/2018 [facility] HCG 1.69 mIU/mL 1 finding [place] [address] [phone] Laboratory test 07/25/2018 [facility] Cytology SEE RESULT 2 finding [place] [address] BELOW [phone] CBC Auto Diff 08/31/2016 [facility] White Blood 9.6 10^3/uL 3.5-10.8 [place] [address] Count [phone] Red Blood Count 4.01 10^6/uL 4.0-5.4 Hemoglobin 12.4 g/dL 12.0-16.0 Hematocrit 37 % 35-47 Mean Corpuscular Volume 92 fL 80-97 Mean Corpuscular Hemoglobin 31 pg 27-31 Mean Corpuscular HGB Conc 34 g/dL 31-36 Red Cell Distribution Width 14 % 10.5-15 Platelet Count 139 10^3/uL Low 150-450 Mean Platelet Volume 11 um3 High 7.4-10.4 Abs Neutrophils 7.4 10^3/uL 1.5-7.7 Abs Lymphocytes 1.6 10^3/uL 1.0-4.8 Abs Monocytes 0.6 10^3/uL 0-0.8 Abs Eosinophils 0.1 10^3/uL 0-0.6 Abs Basophils 0 10^3/uL 0-0.2 Abs Nucleated RBC 0 10^3/uL Granulocyte % 76.4 % 38-83 Lymphocyte % 16.2 % Low 25-47 Monocyte % 6.6 % 1-9 Eosinophil % 0.6 % 0-6 Basophil % 0.2 % 0-2 Nucleated Red Blood Cells % 0 Manual Differential 08/31/2016 [facility] Platelet Morphology Large [place] [address] [phone] Immature Granulocytes 2 % 0-9 Neutrophil % 72 % 38-83 Lymphocytes % 22 % Low 25-47 Monocytes % 4 % 0-13 Metamyelocytes % 1 % 0-2 Myelocytes % 1 % 0-1 RBC Morphology Normal Normal Type And Screen 08/31/2016 [facility] [place] [address] [phone] Antibody Screen NEGATIVE Laboratory test 08/15/2016 [facility] Genital For GRP SEE RESULT 3 finding [place] [address] B Strep Only BELOW [phone] Urinalysis Profile 07/21/2016 [facility] [place] [address] [phone] Urine Appearance Cloudy Urine Specific Cheshire 1.021 1.010-1.030 Urine pH 6.0 5-9 Urine Urobilinogen Negative Negative Urine Ketones Negative Negative Urine Protein Negative Negative Urine Leukocytes Trace Negative Urine Blood 3+ Negative * * Negative 4 Urine Nitrite Negative Negative Urine Bilirubin Negative Negative Urine Glucose Negative Negative Urine White Blood Cell 1+(6-10/hpf) Absent Urine Red Blood Cell 3+(>10/hpf) Absent Urine Bacteria 1+ Absent Urine Squamous Epithelial Cell Present Absent Urine Calcium Oxalate Cryst Present Absent Urine Culture And 07/21/2016 [facility] Urine Culture SEE RESULT 5 Sensitivities [place] [address] BELOW [phone] Laboratory test 06/19/2016 [facility] Glucose 1 HR 71 mg/dL 70-16 6 finding [place] [address] Post Prandial 0 [phone] CBC With No Diff 06/19/2016 [facility] White Blood 9.6 10^3/uL 3.5-1 [place] [address] Count 0.8 [phone] Red Blood Count 3.55 10^6/uL Low 4.0-5.4 Hemoglobin 11.3 g/dL Low 12.0-16.0 Hematocrit 34 % Low 35-47 Mean Corpuscular Volume 96 fL 80-97 Mean Corpuscular Hemoglobin 32 pg High 27-31 Mean Corpuscular HGB Conc 33 g/dL 31-36 Red Cell Distribution Width 13 % 10.5-15 Platelet Count 139 10^3/uL Low 150-450 Mean Platelet Volume 11 um3 High 7.4-10.4 Liver Function 05/22/2016 [facility] Total Protein 6.6 g/dL 6.4-8.9 [place] [address] [phone] Albumin 3.5 g/dL 3.2-5.2 Globulin 3.1 g/dL 2-4 Albumin/Globulin Ratio 1.1 1-3 Total Bilirubin 0.60 mg/dL 0.2-1.0 Direct Bilirubin 0.10 mg/dL 0.03-0.18 Indirect Bilirubin 0.5 mg/dL 0.3-1.0 Alkaline Phosphatase 56 U/L 34-104 Alt 21 U/L 7-52 Ast 19 U/L 13-39 Laboratory test 05/22/2016 [facility] Bile Acid 6 umol/L 0- 10 7 [place] [address] [phone] Sequential 03/29/2016 [facility] Interpretation SEE BELOW 8 Integreated SCRN 2 [place] Risk For Ontd <1:5000 Age Risk Down Syndrome 1:540 ROMELIA Down Syndrome Risk <1:5000 <1:270 ROMELIA Trisomy 18 Risk <1:5000 <1:100 Calculated Gestational Age 16.7 9 Afp,Serum 48.6 ng/mL Afp Mom 1.15 10 HCG,Serum 25.1 IU/mL HCG Mom 0.71 Estriol,Free 0.86 ng/mL Estriol Mom 0.78 Inhibin A,Dimeric 85 pg/mL Inhibin A Mom 0.45 Hardeep-A 1229 ng/mL Hardeep-A Mom 1.35 NT Mom 1.35 11 Referring Physician Name DON Referring Physician Phone NG Referring Physician Rodolfo VALLES Specimen # From Part 1 [id number] Date Of 1985 Collection Date 03/29/2016 Maternal Weight 118 lbs Est'd Date Of Delivery 09/07/2016 Nuchal Translucency 2.0 mm Edgard Rump Length 66.0 mm Ultrasound Date 03/01/2016 Nasal Bone NOT GIVEN Mother's Ethnic Origin Insulin Depend Diabetic N Repeat Specimen N Number Of Fetuses 1 HX Of Neural Tube Defects N Twin B Nasal Bone NOT GIVEN 12 Lead 03/01/2016 [facility] Lead <1.0 g/dL 0.0-4.9 [place], [place] [id number] [phone] HIV 1/2 AB 03/01/2016 [facility] HIV 1 2 Nonreactive Nonreactive 13 [place] [address] Antibody [phone] Type And 03/01/2016 [facility] [place] [address] Blood Type [phone] Antibody Screen NEGATIVE CBC With No 03/01/2016 [facility] White Blood 7.5 10^3/uL 3.5 -10.8 [place] [address] Count [phone] Red Blood Count 3.84 10^6/uL Low 4.0-5.4 Hemoglobin 12.2 g/dL 12.0-16.0 Hematocrit 37 % 35-47 Mean Corpuscular Volume 97 fL 80-97 Mean Corpuscular Hemoglobin 32 pg High 27-31 Mean Corpuscular HGB Conc 33 g/dL 31-36 Red Cell Distribution Width 13 % 10.5-15 Platelet Count 132 10^3/uL Low 150-450 Mean Platelet Volume 12 um3 High 7.4-10.4 PNL No 03/01/2016 [facility] Rubella Screen Immune IU/ mL Immune 14 [place] [address] [phone] Hemoglobin A1c 4.8 % Less than 6.0 15 Hepatitis B Surface Ag Nonreactive Nonreactive 16 Syphillis Igg W/Reflex RPR Nonreactive Nonreactive 17 Sequential Integrated SCRN 1 OR 03/01/2016 [facility] Interpretation SEE BELOW 18 Age Risk Down Syndrome 1:410 ROMELIA Down Syndrome Risk IN PROCESS <1:50 ROMELIA Trisomy 18 Risk IN PROCESS <1:100 Calculated Gestational Age 12.7 19 Hardeep-A 1229 ng/mL Hardeep-A Mom 1.35 HCG,Serum 80.5 IU/mL HCG Mom 0.82 NT Mom 1.35 20 Referring Physician Name DON 21 Referring Physician Phone [phone] 22 Referring Physician Npi [id number] Date Of 1985 24 Collection Date 03/01/2016 25 Maternal Weight 118 lbs 26 Est'd Date Of Delivery 09/07/2016 27 SHASTA Determined By U 28 Mother's Ethnic Origin 29 Number Of Fetuses 1 30 Insulin Depend Diabetic N 31 Repeat Specimen N 32 HX Of Neural Tube Defects N 33 Prev Down Synd N 34 Donor Egg N 35 Donor Age:Egg Retrieval NOT GIVEN 36 Ultrasound Date 03/01/2016 37 Range Manager's Name MARS 38 NTQR Range Manager Id# [id number] NTQR Location Id# [id number] NTQR Reading Phys Id# [id number] FMF Range Manager Id# NOT GIVEN 42 Edgard Rump Length 66.0 mm 43 Nuchal Translucency 2.0 mm 44 Nasal Bone NOT GIVEN 45 If Twins NOT GIVEN 46 Twin B CRL NOT GIVEN mm 47 Twin B NT NOT GIVEN mm 48 Twin B Nasal Bone NOT GIVEN 49 Laboratory test 01/31/2016 [facility] Cytology SEE RESULT 50 [place] [address] BELOW [phone] GC/Chlamydia 01/31/2016 [facility] Chlamydia Negative [place] [address] trachomatis Rna [phone] Neisseria gonorrhoeae (GC) Rna Negative Negative Laboratory test 01/31/2016 [facility] Human Negative Negative 51 [place] [address] Papilloma [phone] Virus Rna Urine Culture 01/31/2016 [facility] Urine Culture SEE RESULT 52 [place] [address] BELOW Sensitivities [phone] Laboratory test 10/12/2014 [facility] Beta HCG 15.18 High 0.0- 5.0 53 [place] [address] Quantitative IU/mL [phone] Laboratory test 09/28/2014 [facility] Beta HCG 662.01 High 0.0 -5.0 54 [place] [address] Quantitative IU/mL [phone] Laboratory test 09/23/2014 [facility] Beta HCG 8936.00 High 0.0-5.0 55 [place] [address] Quantitative IU/mL [phone] Surgical Pathology RUN DATE: SEE NOTE> 56 Laboratory 09/21/2014 [facility] Beta HCG 35377.00 High 0.0- 5.0 57 [place] [address] Quantitative IU/mL [phone] Laboratory 12/15/2013 [facility] Pap See Note 58 test finding Laboratory 03/11/2013 [facility] Genital Culture (SEE NOTE) 59 [place] [address] [phone] Laboratory 02/21/2013 [facility] Genital Culture (SEE NOTE) 60 [place] [address] [phone] Comp Metabolic 02/11/2013 [facility] Sodium 140 mmol/L 133- 145 [place] [address] [phone] Potassium 4.5 mmol/L 3.5-5.0 Chloride 102 mmol/L 101-111 Co2 Carbon Dioxide 31.0 mmol/L 22-32 Anion Gap 7.0 mmol/L 2-11 Glucose 83 mg/dL 70-100 Blood Urea Nitrogen 12 mg/dL 6-24 Creatinine 1.00 mg/dL 0.50-1.40 BUN/Creatinine Ratio 12.0 8-20 Calcium 9.9 mg/dL 8.1-9.9 Total Protein 6.8 g/dL 6.2-8.1 Albumin 4.0 g/dL 3.6-5.4 Globulin 2.8 g/dL 2-4 Albumin/Globulin Ratio 1.4 1-3 Total Bilirubin 0.9 mg/dL 0.4-1.5 Alkaline Phosphatase 98 U/L 30-110 Alt 18 U/L 14-54 Ast 18 U/L 12-42 Egfr Non- 66.0 >60 Egfr 84.9 >60 61 CBC Auto Diff 12/31/2012 [facility] White Blood 8.8 10^3/uL 4.8-10.8 [place] [address] Count [phone] Red Blood Count 3.93 10^6/uL Low 4.0-5.4 Hemoglobin 12.8 g/dL 12.0-16.0 Hematocrit 37 % 35-47 Mean Corpuscular Volume 93 fL 80-97 Mean Corpuscular Hemoglobin 33 pg High 27-31 Mean Corpuscular HGB Conc 35 g/dL 31-36 Red Cell Distribution Width 14 % 10.5-15 Platelet Count 120 10^3/uL Low 150-450 Mean Platelet Volume 12 um3 High 7.4-10.4 Abs Neutrophils 6.9 10^3/uL 1.5-7.7 Abs Lymphocytes 1.3 10^3/uL 1.0-4.8 Abs Monocytes 0.5 10^3/uL 0-0.8 Abs Eosinophils 0 10^3/uL 0-0.6 Abs Basophils 0 10^3/uL 0-0.2 Abs Nucleated RBC 0 10^3/uL Granulocyte % 78.3 % 38-83 Lymphocyte % 15.2 % Low 25-47 Monocyte % 5.8 % 1-9 Eosinophil % 0.6 % 0-6 Basophil % 0.1 % 0-2 Nucleated Red Blood Cells % 0 Type And Screen 12/31/2012 [facility] Patient [place] [address] [phone] Antibody Screen NEGATIVE Liver Function 12/15/2012 [facility] Total Protein 5.7 g/dL Low 6.2-8.1 [place] [address] [phone] Albumin 2.9 g/dL Low 3.6-5.4 Globulin 2.8 g/dL 2-4 Albumin/Globulin Ratio 1.0 1-3 Total Bilirubin 1.2 mg/dL 0.4-1.5 Direct Bilirubin 0.4 mg/dL 0.1-0.5 Indirect Bilirubin 0.8 mg/dL 0.3-1.0 Alkaline Phosphatase 128 U/L High 30-110 Alt 81 U/L High 14-54 Ast 53 U/L High 12-42 Laboratory test 12/15/2012 [facility] Bile Acids 21 mcmol/L < =10 [address] [place] [address] Total [phone] CBC With No Diff 10/24/2012 [facility] White Blood 8.5 10^3/uL 4.8-10.8 [place] [address] Count [phone] Red Blood Count 3.73 10^6/uL Low 4.0-5.4 Hemoglobin 12.0 g/dL 12.0-16.0 Hematocrit 36 % 35-47 Mean Corpuscular Volume 97 fL 80-97 Mean Corpuscular Hemoglobin 32 pg High 27-31 Mean Corpuscular HGB Conc 33 g/dL 31-36 Red Cell Distribution Width 13 % 10.5-15 Platelet Count 139 10^3/uL Low 150-450 Mean Platelet Volume 11 um3 High 7.4-10.4 Glucose Tolerance 10/24/2012 [facility] GTT 2HR Gestational ( SEE NOTE) 63 2HR Gestational [place] [id number] [phone] Sequential 08/07/2012 [facility] Interpretation SEE BELOW 64 Integreated SCRN 2 [place] Risk For Ontd <1:5000 Age Risk Down Syndrome 1:860 ROMELIA Down Syndrome Risk <1:5000 <1:270 ROMELIA Trisomy 18 Risk <1:5000 <1:100 Calculated Gestational Age 16.4 65 Afp,Serum 45.7 NG/ML Afp Mom 1.02 66 HCG,Serum 27.6 IU/mL HCG Mom 1.01 Estriol,Free 0.52 NG/ML Estriol Mom 0.75 Inhibin A,Dimeric 127 pg/mL Inhibin A Mom 0.66 Hardeep-A 1277 NG/ML Hardeep-A Mom 1.54 NT Mom 0.96 67 Referring Physician Name MARCO TATE Referring Physician Phone [phone] Referring Physician Npi [id number] Specimen # From Part 1 [id number] Date Of 1985 Collection Date 08/07/2012 Maternal Weight 114 LBS Est'd Date Of Delivery 01/17/2013 Nuchal Translucency 1.20 MM Edgard Rump Length 51 MM Ultrasound Date 07/04/2012 Nasal Bone NG Mother's Ethnic Origin WHITE Insulin Depend Diabetic N Repeat Specimen N Number Of Fetuses 1 HX Of Neural Tube Defects N Twin B Nasal Bone NG Prental PNL 07/04/2012 [facility] Hepatitis B Nonreactive [place] [address] Surface Ag [phone] Rubella Screen IMMUNE Immune Hemoglobin A1c 5.1 % Less Than 6.0 68 Syphilis Screen 07/04/2012 [facility] Syphilis IgG [place] [address] [phone] RPR NON-REACTIVE Nonreactive RPR Titer TNP Pediatric/Maternal YES Vad 07/04/2012 [facility] Vad Final Nonreactive Nonreactive [address] [place] [address] [phone] Type & 07/04/2012 [facility] [place] [address] Blood Type [phone] Antibody Screen NEGATIVE CBC No Diff 07/04/2012 [facility] White Blood Count 6.9 CUMM 4.8-10.8 [place] [address] [phone] Red Cell Count 3.53 CUMM Low 4.2-5.4 Hemoglobin 11.3 g/dL Low 12.0-16.0 Hematocrit 34 % Low 35-47 Mean Corpuscular Volume 95 um3 79-97 Mean Corpuscular Hemoglob 32 pg High 27-31 Mean Corpuscular HGB Cone 34 g/dL 32-36 Redcell Distribution WDTH 14 % 10.5-15 Platelet Count 136 CUMM Low 150-450 Mean Platelet Volume 10.9 um3 High 7.4-10.4 Sequential Integrated SCRN 1 OR 07/04/2012 [facility] Interpretation SEE BELOW 70 Age Risk Down Syndrome 1:640 ROMELIA Down Syndrome Risk IN PROCESS <1:50 ROMELIA Trisomy 18 Risk IN PROCESS <1:100 Calculated Gestational Age 11.6 71 Hardeep-A 1277 NG/ML Hardeep-A Mom 1.54 HCG,Serum 84.5 IU/mL HCG Mom 1.13 NT Mom 0.96 72 Referring Physician Name DONMARCO Dagmar Referring Physician Referring Physician Npi [id number] Date Of 1985 Collection Date 07/04/2012 Maternal Weight 114 LBS Est'd Date Of Delivery 01/17/2013 SHASTA Determined By ULTRASOUND Mother's Ethnic Origin Number Of Fetuses 1 Insulin Depend Diabetic NO Repeat Specimen NO HX Of Neural Tube Defects NO Brief History (NTD) TACK PULLER MACHINE Prev Down Synd NO Donor Egg NO Donor Age:Egg Retrieval TACK PULLER MACHINE Ultrasound Date 07/04/2012 Range Manager's Name MARS NTQR Range Manager Id# [id number] NTQR Location Id# [id number] NTQR Reading Phys Id# [id number] [facility] Range Manager Id# TACK PULLER MACHINE Edgard Rump Length 51MM MM Nuchal Translucency 1.2MM MM Nasal Bone TACK PULLER MACHINE If Twins TACK PULLER MACHINE Twin B CRL TACK PULLER MACHINE MM Twin B NT TACK PULLER MACHINE MM Twin B Nasal Bone TACK PULLER MACHINE GC/Chlamydia Aptima 06/11/2012 [facility] M < SEE [address] [place] [address] NOTE> [phone] Urine Culture & 06/11/2012 [facility] M <SEE [address] [place] [address] NOTE> [phone] Laboratory test 04/14/2012 [facility] FSH 6.90 MIU/ML [address] [place] [address] [phone] Estradiol 50 pg/mL 76 Laboratory test 04/02/2012 [facility] Mycoplasma see note 77 finding Hominis/Ureaplasma Culture GC/Chlamydia 04/02/2012 [facility] M [address] [place] [address] ----- <SEE [phone] NOTE> Laboratory test 04/02/2012 [facility] Progesterone 0.8 NG/ML [address] [place] [address] [phone] Prolactin 8.79 NG/ML 1.0-25.0 TSH 1.78 MIU/ML 0.34-5.60 FSH 18.07 MIU/ML 80 Lutenizing Hormone 28.97 MIU/ML 81 Estradiol 82 pg/mL 82 Testosterone Total 30.8 ng/dL 10 83 Laboratory 08/10/2011 [facility] Cytology [address] [place] [address] <SEE NOTE> [phone] Laboratory 02/23/2011 [facility] Genital NF3 [address] [place] [address] Culture [phone] Genital 02/07/2011 [facility] Genital KLEBSIELLA OXYTO 86, 87 [place] [address] Culture <SEE NOTE> [phone] Genital Culture NORMAL STEWART 88 Sensitivities For Gen Culture 02/07/2011 [facility] Ampicillin 16 [place], [place] [address] [phone] Amikacin <=2 Ciprofloxacin <=0.25 Ceftriaxone <=1 Cefazolin <=4 Gentamicin <=1 Imipenem <=1 Levofloxacin <=0.12 Trimeth-Sulfa <=20 Ceftazidime <=1 Tigecycline <=0.5 Piperacillin/Tazobactam <=4 Laboratory test 03/23/2010 [facility] Cytology [address] [place] [address] <SEE NOTE> [phone] CBC With Manual 05/04/2009 [facility] White Blood 9.5 CUMM 4.8- [place] [address] Count 10.8 [phone] Red Cell Count 2.96 CUMM Low 4.2-5.4 Hemoglobin 9.3 g/dL Low 12.0-16.0 Hematocrit 28 % Low 35-47 Mean Corpuscular Volume 93 um3 79-97 Mean Corpuscular Hemoglob 32 pg High 27-31 Mean Corpuscular HGB Cone 34 g/dL 32-36 Redcell Distribution WDTH 14 % 10.5-15 Platelet Count 293 CUMM 150-450 Mean Platelet Volume 8.7 um3 7.4-10.4 Polysegmented Neutrophil 80 % 38-83 Band Neutrophil 6 % 0-8 Lymphocyte 10 % Low 25-47 Monocyte 3 % 0-13 Eosenophil 1 % 0-6 Absolute Neutrophil Count 8.1 RBC Morphology NORMAL Laboratory test 04/05/2009 [facility] Genital For GRP NG2 [address] [place] [address] B Strep Only [phone] Parvovirus B19 AB 09/08/2008 [facility] Parvovirus B19 0.1 index <0.9 91 (Igg,M) AB (Igm) Parvovirus B19 AB (Igg) 4.0 index High <0.9 1 09/08/2008 [facility] White Blood Count 8.1 CUMM 4.8-10.8 [place] [address] [phone] Red Cell Count 4.54 CUMM 4.2-5.4 Hemoglobin 13.2 g/dL 12.0-16.0 Hematocrit 39 % 35-47 Mean Corpuscular Volume 86 um3 79-97 Mean Corpuscular Hemoglob 29 pg 27-31 Mean Corpuscular HGB Cone 34 g/dL 32-36 Redcell Distribution WDTH 17 % High 10.5-15 Platelet Count 159 CUMM 150-450 Mean Platelet Volume 11.1 um3 High 7.4-10.4 Gran % 73.1 % 38-83 Lymph % 21.4 % Low 25-47 Mononuclear % 4.8 % 1-9 Eosinophil % 0.3 % 0-6 Basophil % 0.4 % 0-2 Abs Lymphs 1.7 1.0-4.8 Abs Mononuclear 0.4 0-0.8 Absolute Neutrophil Count 6.0 1.5-7.7 Abs Eosinophils 0 0-0.6 Abs Basophils 0 0-0.2 92 RPR NON REACTIVE Nonreactive Rubella Screen IMMUNE Immune Hepatitis B Surface Antigen Negative Negative 93 1 TS 09/08/2008 [facility] Patient [place] [address] [phone] Antibody Screen NEGATIVE Vad 09/08/2008 [facility] Vad Final NONREACTIVE Nonreactive [address] [place] [address] [phone] GC/ZHL On 09/08/2008 [facility] GC On Urine NEGATIVE Negative 95 [place] [address] [phone] CHL On Urine NEGATIVE Negative 96 Urine Culture & 09/08/2008 [facility] Urine Culture NG [address] [place] [address] Sensitivi [phone] Laboratory test 05/05/2008 [facility] TSH 1.69 0.34-5 [place] [address] MIU/ML .60 [phone] Thyroxine Free 0.80 NG/ML 0.61-1.24 98 Prolactin 23.09 NG/ML 1.0-25.0 GC/Chlamydia Dna 12/12/2002 [facility] Chlamydia By NEGATIVE Negative [address] [place] [address] Dna Probe [phone] GC By Dna Probe NEGATIVE Negative 100 1 <5.0 Negative 5.0 - 25.0 Indeterminate (Repeat testing recommended after 72 hours) >25.0 Positive Perimenopausal women can display HCG levels of up to 20 mIU/mL 2 SEE RESULT BELOW Name: MERCED BAUER : [address]: Gaby Elizondo Acct: [id number] Unit: [id number] AGE: 33 Location: [facility] Re07/25/18 SEX: F Status: REG REF SPEC: [id number] PERRI: 07/25/18-[address]: Gaby Elizondo REQ: [id number] RECD: 07/26/18 STATUS: YULI ROBERTSON DR: Jesus Barron MD _ ORDERED: TP IMAGE ANALYS, YEAST WASHER PHYS INTERP, HPV/Thin Prep COMMENTS: [id number] Negative for Intraepithelial lesion or Malignancy Reactive cellular changes associated with Inflammation (includes typical repair) Date Time Test Result Flag (u) Normal Range 07/25/18 1520 @ HPV RNA POSITIVE An Negative @ @ The high-risk HPV types detected by the assay include: 16, @ 18, 31, 33, 35, 39, 45, 51, 52, 56, 58, 59, 66, and 68. A. Ectocervical/Endocervical Specimen Adequacy: Satisfactory of evaluation Transformation zone component identified Patient Information: HPV: High risk HPV RNA testing regardless of pap results. Actual Specimen Date: 07/25/18 Last Menstrual Date: 07/08/18 Date of Last Specimen: 01/31/16 Signed by and Reported on: Alysia Wilcox MD 07/30/18 2166 This Pap test was evaluated with the assistance of the AylaPrep Test Imaging System. Due to cytologic findings at the hotel desk clerk microscope, comprehensive manual rescreening by a Billing Clerk may be required. The Pap Smear is a screening test designed to aid in the detection of premalignant and malignant conditions of the uterine cervix. It is not a diagnostic procedure and should not be used as the sole means of detecting cervical cancer. Both false- positive and false- negative reports do occur. Depending on your risk status, a Pap smear should be obtained and evaluated every 1-3 years. END OF REPORT DEPARTMENT OF PATHOLOGY, [address] [place] [address] Sean Tapia M.D. Director [facility] # [id number] 3 SEE RESULT BELOW Name: MERCED BAUER : [address]: Temitope NARVAEZ Acct: [id number] Unit: [id number] AGE: 31 Location: [facility] Re08/15/16 SEX: F Status: REG REF SPEC: [id number] PERRI: 08/15/161447 [facility] DR: Temitope Nelson [facility] REQ: [id number] RECD: 08/15/16 STATUS: COMP _ SOURCE: CER/VAG/RE SPDESC: ORDERED: Grp B Strp Scrn COMMENTS: [id number] QUERIES: Is Patient Penicillin Allergic? N Is patient penicillin allergic and/or sensitivities needed? N Provider Requisition # [id number]_ Procedure Result Reported Site Group B Strep Culture Screen Final 08/17/16- 1059 ML Group B Strep Screen Negative * ML - MAIN LAB ([facility]) . END OF REPORT * ML=Testing performed at Main Lab DEPARTMENT OF PATHOLOGY, [address] [place] [address] Sean Tapia M.D. Director [facility] # [id number] 4 *Ascorbic acid is present which may interfere with detection of blood. 5 SEE RESULT BELOW Name: MERCED BAUER : [address]: Marco Tate MD Acct: [id number] Unit: [id number] AGE: 31 Location: [facility] Re07/21/16 SEX: F Status: DEP REF SPEC: [id number] PERRI: 07/21/[address]: Marco Tate MD REQ: [id number] RECD: 07/21/16 STATUS: CORY ROBERTSON DR: Sunshine Gorman MD _ SOURCE: URINE SPDESC: ORDERED: Urine Culture Procedure Result Reported Site Urine Culture Final 07/24/16- 0833 ML No growth of clinically significant organisms * ML - [facility] LAB ([facility]) . END OF REPORT * ML=Testing performed at Main Lab DEPARTMENT OF PATHOLOGY, [address] [place] [address] Sean Tapia M.D. Director [facility] # [id number] INTERPRETIVE INFORMATION: Bile Acids, Total Reference Interval applies to fasting specimens. Test Performed by: [facility] [address] [place] [id number] 8 SCREEN NEGATIVE FOR OPEN NTD, DOWN SYNDROME AND TRISOMY 18. NT WAS USED IN THE RISK CALCULATIONS. 9 Edgard rump length (CRL) was used to calculate gestational age. SHASTA, if provided, was not used for gestational age dating. 10 Reference Range: <2.50 IDD <1.90 TWINS <4.00 TWINS IDD <3.50 TRIPLETS <4.50 11 The Sequential Integrated Screen combines HARDEEP-A and hCG with or without a nuchal translucency measurement in the first trimester with AFP, unconjugated estriol, intact hCG and Inhibin A in the second trimester. This provides a useful screening test for detection of open neural tube defects, Down syndrome and Trisomy 18. It should be noted that normal results can never guarantee the of a normal baby and that 2 to 3 percent of newborns have some type of physical or mental defect, many of which are undetectable through any known diagnostic technique. Interpretation reviewed by: Lisa Jones, Ph.D., [facility]. This is a screening test, not a diagnostic test. This risk assessment is based on demographic data provided by the ordering physician. Please notify the laboratory promptly if any data are incorrect. If you have questions concerning this report: For clinical consultation, call ; For technical questions, call ext [phone]; For recalculations, fax to . This test was developed and its analytical performance characteristics have been determined by [employer] [facility] [place]. It has not been cleared or approved by FDA. This assay has been validated pursuant to the CLIA regulations and is used for clinical purposes. 12 For additional information, please refer to http://education.Foldees/faq/FAQ94 (This link is provided for informational/educational purposes only.) 13 It is recognized that currently available assays for the detection of antibodies to HIV-1 and/or HIV-2 may not detect all infected individuals. HIV antibodies may be undetectable in some stages of the infection and in some clinical conditions. The performance of this assay has not been established for populations of infants or children. Assayed by Chemiluminescence Microparticle Immunoassay on the Siemens Advia Centaur CP. Values obtained with different methods or kits cannot be used interchangeably.The diagnostic specificity of the ADVIA Centaur 1/O/2 Enhanced assay in the low risk population was 99.90% (6052/6058) with a 95% confidence interval of 99.78 to 99.96%. 14 [id number] 15 Therapeutic target for the treatment of diabetes Mellitus patients is <7% HBA1C, and in selective patients <6.0%.Please refer to [place] [employer] Diabetic care guidelines for further information. 16 [id number] 17 Warning: A positive result is not useful for establishing a diagnosis of syphilis. In most situations, such a result may reflect a prior treated infection; a negative result can exclude a diagnosis of syphilis except for incubating or early primary disease. 18 This patient's risk does not exceed the first trimester cut-off for Down syndrome or trisomy 18. The integrated screen calculation is awaiting the second trimester sample. NT WAS USED IN THE RISK CALCULATIONS. Thank you for submitting this patient's Part 1 specimen. These first trimester values will be incorporated with the second trimester values as part of the integrated testing process. Please submit the Part 2 specimen between 03/17/2016-05/11/2016 (15.0 and 22.9 weeks gestation) with 03/17/2016-03/30/2016 (15.0 - 16.9 weeks gestation) being optimal. When submitting Part 2, please include the following Specimen # from Part 1: [id number] 19 Edgard rump length (CRL) was used to calculate gestational age. SHASTA, if provided, was not used for gestational age dating. 20 Interpretation reviewed by: Manav Costa, Ph.D., [facility] This is a screening test, not a diagnostic test. This risk assessment is based on demographic data provided by the ordering physician. Please notify the laboratory promptly if any data are incorrect. If you have questions concerning this report: For clinical consultation, call ; For technical questions, call ext [phone]; For recalculations, fax to . This test was developed and its analytical performance characteristics have been determined by [employer] [facility]. It has not been cleared or approved by FDA. This assay has been validated pursuant to the CLIA regulations and is used for clinical purposes. For additional information, please refer to http://Sportsvite D/B/A LeagueApps.Foldees/faq/FAQ89 (This link is being provided for informational/educational purposes only.) 21 For additional information, please refer to http://Sportsvite D/B/[employer] LeagueApps.Foldees/faq/FAQ89 (This link is being provided for informational/educational purposes only.) 22 For additional information, please refer to http://Visure Solutions/faq/FAQ89 (This link is being provided for informational/educational purposes only.) 23 For additional information, please refer to http://Sportsvite D/B/[employer]Apps.Foldees/faq/FAQ89 (This link is being provided for informational/educational purposes only.) 24 For additional information, please refer to http://Sportsvite D/B/A [employer]Apps.Foldees/faq/FAQ89 (This link is being provided for informational/educational purposes only.) 25 For additional information, please refer to http://[employer]/faq/FAQ89 (This link is being provided for informational/educational purposes only.) 26 For additional information, please refer to http://Sportsvite D/B/A LeagueApps.Foldees/faq/FAQ89 (This link is being provided for informational/educational purposes only.) 27 For additional information, please refer to http://[employer]/faq/FAQ89 (This link is being provided for informational/educational purposes only.) 28 For additional information, please refer to http://[employer]/faq/FAQ89 (This link is being provided for informational/educational purposes only.) 29 For additional information, please refer to http://[employer]/faq/FAQ89 (This link is being provided for informational/educational purposes only.) 30 For additional information, please refer to http://[employer]/faq/FAQ89 (This link is being provided for informational/educational purposes only.) 31 For additional information, please refer to http://Vis[employer]/faq/FAQ89 (This link is being provided for informational/educational purposes only.) 32 For additional information, please refer to http://[employer]/faq/FAQ89 (This link is being provided for informational/educational purposes only.) 33 For additional information, please refer to http://[employer]/faq/FAQ89 (This link is being provided for informational/educational purposes only.) 34 For additional information, please refer to http://[employer]/faq/FAQ89 (This link is being provided for informational/educational purposes only.) 35 For additional information, please refer to http://[employer]/faq/FAQ89 (This link is being provided for informational/educational purposes only.) 36 For additional information, please refer to http://[employer]/faq/FAQ89 (This link is being provided for informational/educational purposes only.) 37 For additional information, please refer to http://[employer]/faq/FAQ89 (This link is being provided for informational/educational purposes only.) 38 For additional information, please refer to http://Vis[employer]/faq/FAQ89 (This link is being provided for informational/educational purposes only.) 39 For additional information, please refer to http://Vis[employer]/faq/FAQ89 (This link is being provided for informational/educational purposes only.) 40 For additional information, please refer to http://Vis[employer]/faq/FAQ89 (This link is being provided for informational/educational purposes only.) 41 For additional information, please refer to http://[employer] Solutions/faq/FAQ89 (This link is being provided for informational/educational purposes only.) 42 For additional information, please refer to http://[employer]/faq/FAQ89 (This link is being provided for informational/educational purposes only.) 43 For additional information, please refer to http://Vis[employer] Solutions/faq/FAQ89 (This link is being provided for informational/educational purposes only.) 44 For additional information, please refer to http://Vis[employer] Solutions/faq/FAQ89 (This link is being provided for informational/educational purposes only.) 45 For additional information, please refer to http://Vis[employer] Solutions/faq/FAQ89 (This link is being provided for informational/educational purposes only.) 46 For additional information, please refer to http://[employer]/faq/FAQ89 (This link is being provided for informational/educational purposes only.) 47 For additional information, please refer to http://[employer]/faq/FAQ89 (This link is being provided for informational/educational purposes only.) 48 For additional information, please refer to http://[employer]/faq/FAQ89 (This link is being provided for informational/educational purposes only.) 49 For additional information, please refer to http://Vis[employer] Solutions/faq/FAQ89 (This link is being provided for informational/educational purposes only.) 50 SEE RESULT BELOW Name: MERCED BAUER : [address]: Nenita Kruger CNM Acct: [id number] Unit: [id number] AGE: 30 Location: [facility] Re01/31/16 SEX: F Status: REG REF SPEC: [id number] PERRI: 01/31/[address]: Nenita Kruger [facility] REQ: [id number] RECD: 01/31/16 STATUS: SOUT _ ORDERED: IMAGE ANALYSIS, HPV/Thin Prep FINAL DIAGNOSIS Negative for Intraepithelial lesion or Malignancy A. Ectocervical/Endocervical Specimen Adequacy: Satisfactory of evaluation Transformation zone component not identified Patient Information: HPV: High risk HPV RNA testing regardless of pap results. Actual Specimen Date: 01/31/16 Last Menstrual Date: 12/01/15 Date of Last Specimen: 12/15/13 ?: Y Date Time Test Result Flag (u) Normal Range 01/31/16 0919 HPV RNA Negative Negative The high-risk HPV types detected by the assay include: 16, 18, 31, 33, 35, 39, 45, 51, 52, 56, 58, 59, 66, and 68. Signed (signature on file) PALAK Epperson(ASCP) 01/31 1332 This Pap test was evaluated with the assistance of the [employer] Test Imaging System. Due to cytologic findings at the hotel desk clerk microscope, comprehensive manual rescreening by a Billing Clerk may be required. The Pap Smear is a screening test designed to aid in the detection of premalignant and malignant conditions of the uterine cervix. It is not a diagnostic procedure and should not be used as the sole means of detecting cervical cancer. Both false- positive and false- negative reports do occur. Depending on your risk status, a Pap smear should be obtained and evaluated every 1-3 years. END OF REPORT * ML=Testing performed at Main Lab DEPARTMENT OF PATHOLOGY, [address] [place] [address] Sean Tapia M.D. Director [facility] # [id number] 51 The high-risk HPV types detected by the assay include: 16, 18, 31, 33, 35, 39, 45, 51, 52, 56, 58, 59, 66, and 68. 52 SEE RESULT BELOW Name: MERCED BAUER : [address]: Nenita DELGADILLO Acct: [id number] Unit: [id number] AGE: 30 Location: [facility] Re01/31/16 SEX: F Status: REG REF SPEC: [id number] PERRI: 01/31/[address]: Nenita Kruger [facility] REQ: [id number] RECD: 01/31/16 STATUS: COMP _ SOURCE: URINE SPDESC: ORDERED: Urine Culture Procedure Result Reported Site Urine Culture Final 02/01/16- 1227 ML No Growth (<1,000 CFU/mL) * ML - MAIN LAB ([facility]) . END OF REPORT * ML=Testing performed at Main Lab DEPARTMENT OF PATHOLOGY, [facility] [place] [address] Sean Tapia M.D. Director [facility] # [id number] 53 <5.0 Negative 5.0 - 25.0 Indeterminate >25.0 Positive 54 <5.0 Negative 5.0 - 25.0 Indeterminate >25.0 Positive 55 <5.0 Negative 5.0 - 25.0 Indeterminate >25.0 Positive 56 RUN DATE: 09/29/14 [facility] LAB LIVE PAGE 1 RUN TIME: [address] [facility] [place], [place] [address] Specimen Inquiry Name: MERCED BAUER : [address]: Gaby Martinez CNP Acct: [id number] Unit: [id number] AGE: 29 Location: [facility] Re09/23/14 SEX: F Status: REG REF SPEC: [id number] PERRI: 09/23/14-[address] [facility] [address]: Gaby Martinez [employer]JUNCT TRAINER REQ: [id number] RECD: 09/23/14 STATUS: SOUT _ ORDERED: LEVEL IV/2 FINAL DIAGNOSIS 1. Uterus, passed tissue: -- Products of conception including immature chorionic villi. 2. Uterus, passed tissue: -- Acutely inflamed decidual tissue and keratinized superficial squamous epithelium. CLINICAL HISTORY LMP: 07/29/14, having spotting and cramping 09/21. Transvaginal ultrasound at 5 weeks, 5 days, pole seen, no cardiac activity, tissue passed 09/23 PRE-OPERATIVE DIAGNOSIS Spontaneous GROSS DESCRIPTION 1. The specimen is received in formalin labeled, Question POC, and consists of a 2.5 x 1.8 x 0.5 cm aggregate of francis-white papilliferous soft tissue admixed with red- brown blood clot. Chorionic villi are identified. No parts are identified. The specimen is submitted entirely in one cassette. 2. The specimen is received in formalin labeled, Question POC, and consists of a 7.5 x 6.4 x 1.3 cm aggregate of francis-brown rubbery membranous tissue admixed with red- brown blood clot. Chorionic villi are not definitively identified. No parts are identified. Studio Operations Manager sections are submitted in two cassettes. Signed (signature on file) Sean Tapia MD [id number] END OF REPORT * ML=Testing performed at Main Lab DEPARTMENT OF PATHOLOGY, [address] [place] [address] Sean Tapia M.D. Director [facility] # [id number] 57 <5.0 Negative 5.0 - 25.0 Indeterminate >25.0 Positive 58 Cytology Laboratory [address], [address] [place] [address] CYTOLOGY REPORT Name: Merced Bauer : 1985 (Age: 28) Sex: F Location: [facility] GYN [facility] Med. Rec. # [id number] Date Collected: 12/15/2013 Billing #: [id number] Date Received: 12/16/2013 Requisition # [id number] Physician(s): MAISHA GARRIDO Source of Specimen: ENDOCERVICAL/ECTOCERVICAL THIN PREP Clinical Information: Date of Last Menstrual Period: 11/18/13 Interpretation: NEGATIVE FOR INTRAEPITHELIAL LESION OR MALIGNANCY. Specimen Adequacy: SATISFACTORY FOR EVALUATION. Additional Findings: ENDOCERVICAL/TRANSFORMATION ZONE PRESENT. tfn Electronic Signature PALAK Sanford (ASCP) Reported: 12/18/2013 [facility] ICD-9 Code(s) V76.2 59 RUN DATE: 03/15/13 [facility] LAB LIVE PAGE 1 RUN TIME: [address] [place] [address] Specimen Inquiry Name: MERCED BAUER : [address]: Gaby Martinez CNP Acct: [id number] Unit: [id number] AGE: 27 Location: [facility] Re03/11/13 SEX: F Status: REG REF SPEC: [id number] PERRI: 03/11/13-[address] [facility] [address]: Gaby Martinez [facility] REQ: [id number] RECD: 03/12/13 STATUS: COMP _ SOURCE: CERVIX SPDESC: ORDERED: Genital Culture QUERIES: Medent Number [id number] Procedure Result Verified Site Genital Culture Final 03/15/13921 ML Organism 1 NORMAL STEWART Quantity 3+ END OF REPORT * ML=Testing performed at Main Lab DEPARTMENT OF PATHOLOGY, [facility] [address] [place], [place] [address] Sean Tapia M.D. Director [facility] Permit #[id number] RUN DATE: 02/23/13 [facility] LAB LIVE PAGE 1 RUN TIME: 1202 [facility] [address] [place], [place] [address] Specimen Inquiry Name: MERCED BAUER Randee : [address]: Jessie Clayton NP Acct: [id number] Unit: [id number] AGE: 27 Location: [facility] Re02/21/13 SEX: F Status: REG REF SPEC: [id number] PERRI: 02/21/13-[address]: Jessie Clayton NP REQ: [id number] RECD: 02/21/13 STATUS: COMP _ SOURCE: CERVIX SPDESC: ORDERED: Genital Culture QUERIES: Medent Number [id number] Procedure Result Verified Site Genital Culture Final 02/23/13- 1202 ML Organism 1 NORMAL STEWART Quantity 3+ END OF REPORT * ML=Testing performed at Main Lab DEPARTMENT OF PATHOLOGY, [address] [place] [address] Sean Tapia M.D. Director [facility] Permit #[id number] 61 Because ethnic data is not always readily available, this report includes an eGFR for both -Americans and non- Americans. The National Kidney Disease Education Program (NKDEP) does not endorse the use of the MDRD equation for patients that are not between the ages of 18 and 70, are , have extremes of body size, muscle mass, or nutritional status, or are non- or non-. According to the National Kidney Foundation, irrespective of diagnosis, the stage of the disease is based on the level of kidney function: Stage Description GFR(mL/min/1.73 m(2)) 1 Kidney damage with normal or decreased GFR 90 2 Kidney damage with mild decrease in GFR 60-89 3 Moderate decrease in GFR 30-59 4 Severe decrease in GFR 15-29 5 Kidney failure <15 (or dialysis) 62 Test Performed by: [place] [address] Telephone Exchange Operator: Bobbi Amanda, Ph.D. 63 GLU Fast 79 Col: 10/24/12 0846 GLU 1HR 80 Col: 10/24/12 0946 GLU 2HR 98 Col: 10/24/12 1046 GTT Interp Col: 10/24/12 0846 Gestational Diabetes Diagnostic: OGTT Glucose Load: samples drawn after 75-gram glucose drink Target Levels: Fasting <92 mg/dl 1hr <180 mg/dl 2hr <153 mg/dl If ONE or more values meet or exceed the target level, gestational diabetes is diagnosed. 64 SCREEN NEGATIVE FOR OPEN NTD, DOWN SYNDROME AND TRISOMY 18 65 Edgard rump length (CRL) was used to calculate gestational age. SHASTA, if provided, was not used for gestational age dating. 66 Reference Range: <2.50 IDD <1.90 TWINS <4.00 TWINS IDD <3.50 TRIPLETS <4.50 67 The Sequential Integrated Screen combines HARDEEP-A and hCG with or without a nuchal translucency measurement in the first trimester with AFP, unconjugated estriol, intact hCG and Inhibin A in the second trimester. This provides a useful screening test for detection of open neural tube defects, Down syndrome and Trisomy 18. It should be noted that normal results can never guarantee the of a normal baby and that 2 to 3 percent of newborns have some type of physical or mental defect, many of which are undetectable through any known diagnostic technique. Interpretation reviewed by: Lisa Jones, Ph.D., [facility]. This is a screening test, not a diagnostic test. This risk assessment is based on demographic data provided by the ordering physician. Please notify the laboratory promptly if any data are incorrect. If you have questions concerning this report: For clinical consultation, call ; For technical questions, call ext [phone]; For recalculations, fax to . This test was developed and its performance characteristics have been determined by [employer] [facility]. Performance characteristics refer to the analytical performance of the test. 68 THERAPEUTIC TARGET FOR THE TREATMENT OF DIABETES MELLITUS PATIENTS IS <7% HBA1C, AND IN SELECTIVE PATIENTS <6.0%. PLEASE REFER TO [place] AND [place] [employer] DIABETIC CARE GUIDELINES FOR FURTHER INFORMATION. 69 It is recognized that currently available assays for the detection of antibodies to HIV-1 and/or HIV-2 may not detect all infected individuals. HIV antibodies may be undetectable in some stages of the infection and in some clinical conditions. The performance of this assay has not been established for populations of infants or children. Assayed by Chemiluminescence Microparticle Immunoassay on the [employer] Centaur CP. Values obtained with different methods or kits cannot be used interchangeably.The diagnostic specificity of the [employer]IA Centaur 1/O/2 Enhanced assay in the low risk population was 99.90% (6052/6058) with a 95% confidence interval of 99.78 to 99.96%. 70 This patient's risk does not exceed the first trimester cut-off for Down syndrome or trisomy 18. The integrated screen calculation is awaiting the second trimester sample. Thank you for submitting this patient's Part 1 specimen. These first trimester values will be incorporated with the second trimester values as part of the integrated testing process. Please submit the Part 2 specimen between 07/28/2012-09/21/2012 (15.0 and 22.9 weeks gestation) with 07/28/2012-08/10/2012 (15.0 - 16.9 weeks gestation) being optimal. When submitting Part 2, please include the following Specimen # from Part 1: [id number] 71 Edgard rump length (CRL) was used to calculate gestational age. SHASTA, if provided, was not used for gestational age dating. 72 Interpretation reviewed by: Manav Costa, Ph.D., [facility] This is a screening test, not a diagnostic test. This risk assessment is based on demographic data provided by the ordering physician. Please notify the laboratory promptly if any data are incorrect. If you have questions concerning this report: For clinical consultation, call ; For technical questions, call ext [phone]; For recalculations, fax to . This test was developed and its performance characteristics have been determined by [employer] [facility]. Performance characteristics refer to the analytical performance of the test. 73 RUN DATE: 06/13/12 [facility] NMI LIVE PAGE 1 RUN TIME: 2038 Specimen Inquiry RUN USER: INTERFACE Name: MERCED BAUER Status: REG REF Re06/11/12 Age/Sex: 27/F Unit#: [id number] Location: [facility] : [birth year] SPEC #: [id number] PERRI: 06/11/12 STATUS: COMP REQ #: [id number] RECD: 06/11/12-[address] [facility] [address]: Jessie Clayton NP SOURCE: ENDOCERVIX ENTR: 06/11/12-[address]: SPDES: ORDERED: GC/CHL APTIMA QUERIES: MEDENT REQUISITION # [id number] ACT WKST: GCCHL 06/13/12 #1 Procedure Result Verified Site > CHLAMYDIA TRACHOMATIS RNA Final 06/13/12- 2038 ML NEGATIVE FOR CHLAMYDIA TRACHOMATIS rRNA A negative result does not preclude the presence of a C.trachomatis or N.gonorrhoeae infection because results are dependent on adequate specimen collection, absence of inhibitors, and sufficient rRNA to be detected. Test results may be affected by improper specimen collection, improper specimen storage, technical error, or specimen mixup. Limitations of the Procedure: The Aptima Combo 2 Assay is not intended for the evaluation of suspected sexual abuse or for other medico-legal indications. For those patients for whom a false positive result may have adverse psychosocial impact, the [facility] recommends retesting by a method using an alternate technology. Therapeutic failure or success cannot be determined with the Aptima Combo 2 Assay since nucleic acid may persist following appropriate antimicrobial therapy. Results from the APTIMA Combo 2 Assay should be interpreted in conjunction with other laboraotry and clinical data available to the clinician. Performance characteristics for detecting C. trachomatis and N. gonorrhoeae are derived from high prevalence populations. Positive results in low prevalence populations should be interpreted carefully with the understanding that the likelihood of a false positive may be higher than a true positive. DEPARTMENT OF PATHOLOGY, [address] [place] [address] [facility] Permit #[id number] Sean Tapia M.D. Director Edwardo Holly M.D. Manager Digital RUN DATE: 06/13/12 [facility] NMI LIVE PAGE 2 RUN TIME: 2038 Specimen Inquiry RUN USER: INTERFACE Name: MERCED BAUER Status: REG REF Re06/11/12 Age/Sex: 27/F Unit#: [id number] Location: [facility] : 83 -- -- CONTINU ED Procedure Result Verified Site > GC (N. GONORRHOEAE) RNA Final 06/13/12- 2038 ML NEGATIVE FOR NEISSERIA GONORRHOEAE rRNA A negative result does not preclude the presence of a C.trachomatis or N.gonorrhoeae infection because results are dependent on adequate specimen collection, absence of inhibitors, and sufficient rRNA to be detected. Test results may be affected by improper specimen collection, improper specimen storage, technical error, or specimen mixup. Limitations of the Procedure: The Aptima Combo 2 Assay is not intended for the evaluation of suspected sexual abuse or for other medico-legal indications. For those patients for whom a false positive result may have adverse psychosocial impact, the CDC recommends retesting by a method using an alternate technology. Therapeutic failure or success cannot be determined with the Aptima Combo 2 Assay since nucleic acid may persist following appropriate antimicrobial therapy. Results from the APTIMA Combo 2 Assay should be interpreted in conjunction with other laboraotry and clinical data available to the clinician. Performance characteristics for detecting C. trachomatis and N. gonorrhoeae are derived from high prevalence populations. Positive results in low prevalence populations should be interpreted carefully with the understanding that the likelihood of a false positive may be higher than a true positive. ML - [facility] Permit #[id number] [address] [place] [address] DEPARTMENT OF PATHOLOGY, [address] [place] [address] [facility] Permit #[id number] Sawyer Wadsworth M.D. Manager Digital 74 RUN DATE: 06/13/12 [facility] NMI LIVE PAGE 1 RUN TIME: 943 Specimen Inquiry RUN USER: INTERFACE Name: MERCED BAUER Status: REG REF Re06/11/12 Age/Sex: 27/F Unit#: [id number] [facility] [birth year] SPEC #: [id number] PERRI: 06/11/12 STATUS: CORY REQ #: [id number] RECD: 06/11/12-[address]: Jessie Clayton NP SOURCE: URINE ENTR: 06/11/12-[address]: ORDERED: URINE C S COMMENTS: SPECIMEN DESCRIPTION: URINE, CLEAN CATCH QUERIES: [employer] MEDENT REQUISITION # [id number] ACT WKST: UR 06/13/12 #2 Procedure Result Verified Site > URINE CULTURE SENSITIVI Final 06/13/12- 0944 ML FINAL: NO GROWTH DAY 2 (<1,000 CFU/mL) [facility] Permit #[id number] [address] [place], [place] [id number] DEPARTMENT OF PATHOLOGY, [address] [place] [address] [facility] Permit #[id number] Sawyer Wadsworth M.D. Manager Digital 75 NORMAL RANGE MALES 1 - 20 NORMALLY MENSTRUATING FEMALES - Follicular Phase 3 - 9 - Mid-Cycle Peak 4 - 23 - Luteal Phase 1 - 6 POSTMENOPAUSAL FEMALES 16 - 114 . 76 EXPECTED RESULTS (pg/ml) MALES 20-75 POSTMENOPAUSAL FEMALES 20-88 NON FEMALES Mid-Follicular Phase 24-114 Periovulatory 62-534 Mid Luteal Phase 80-273 77 UREAPLASMA CULT (MYCOPLASMA T) RESULT/COMMENT: No Ureaplasma urealyticum isolated at 5 days. MYCOPLASMA HOMINIS CULT. RESULT/COMMENT: Negative for Mycoplasma hominis 78 RUN DATE: 04/05/12 [facility] NMI LIVE PAGE 1 RUN TIME: 1416 Specimen Inquiry RUN USER: INTERFACE Name: BAUERMERCED L Status: REG REF Re04/02/12 Age/Sex: 26/F Unit#: [id number] Location: [facility] : 83 SPEC #: [id number] PERRI: 04/02/12 STATUS: CORY REQ #: [id number] RECD: 04/02/12-[address] [facility] [address]: Michelle BARRERAGaby M. SOURCE: ENDOCERVIX ENTR: 04/02/12-[address] [facility] [address]: MIKE: ORDERED: GC/CHL APTIMA QUERIES: MEDENT REQUISITION # [id number] ACT WKST: GCCHL 04/05/12 #1 Procedure Result Verified Site > CHLAMYDIA TRACHOMATIS RNA Final 04/05/12- 1416 ML NEGATIVE FOR CHLAMYDIA TRACHOMATIS rRNA A negative result does not preclude the presence of a C.trachomatis or N.gonorrhoeae infection because results are dependent on adequate specimen collection, absence of inhibitors, and sufficient rRNA to be detected. Test results may be affected by improper specimen collection, improper specimen storage, technical error, or specimen mixup. Limitations of the Procedure: The Aptima Combo 2 Assay is not intended for the evaluation of suspected sexual abuse or for other medico-legal indications. For those patients for whom a false positive result may have adverse psychosocial impact, the [facility] recommends retesting by a method using an alternate technology. Therapeutic failure or success cannot be determined with the Aptima Combo 2 Assay since nucleic acid may persist following appropriate antimicrobial therapy. Results from the APTIMA Combo 2 Assay should be interpreted in conjunction with other laboraotry and clinical data available to the clinician. Performance characteristics for detecting C. trachomatis and N. gonorrhoeae are derived from high prevalence populations. Positive results in low prevalence populations should be interpreted carefully with the understanding that the likelihood of a false positive may be higher than a true positive. DEPARTMENT OF PATHOLOGY, [address] [place] [address] [facility] Permit #[id number] Sawyer Wadsworth M.D. Manager Digital RUN DATE: 04/05/12 [facility] NMI LIVE PAGE 2 RUN TIME: 1416 Specimen Inquiry RUN USER: INTERFACE Name: MERCED BAUER Status: REG REF Re04/02/12 Age/Sex: 26/F Unit#: [id number] Location: [facility] : 83 -- -- CONTINU ED Procedure Result Verified Site > GC (N. GONORRHOEAE) RNA Final 04/05/12- 1416 ML NEGATIVE FOR NEISSERIA GONORRHOEAE rRNA A negative result does not preclude the presence of a C.trachomatis or N.gonorrhoeae infection because results are dependent on adequate specimen collection, absence of inhibitors, and sufficient rRNA to be detected. Test results may be affected by improper specimen collection, improper specimen storage, technical error, or specimen mixup. Limitations of the Procedure: The Aptima Combo 2 Assay is not intended for the evaluation of suspected sexual abuse or for other medico-legal indications. For those patients for whom a false positive result may have adverse psychosocial impact, the [facility] recommends retesting by a method using an alternate technology. Therapeutic failure or success cannot be determined with the Aptima Combo 2 Assay since nucleic acid may persist following appropriate antimicrobial therapy. Results from the APTIMA Combo 2 Assay should be interpreted in conjunction with other laboraotry and clinical data available to the clinician. Performance characteristics for detecting C. trachomatis and N. gonorrhoeae are derived from high prevalence populations. Positive results in low prevalence populations should be interpreted carefully with the understanding that the likelihood of a false positive may be higher than a true positive. [facility] Permit #[id number] [facility] [address] [place] [address] DEPARTMENT OF PATHOLOGY, [facility] [address] [place] [address] [facility] Permit #[id number] Sawyer Wadsworth M.D. Manager Digital 79 FEMALE REFERENCE RANGES FOR Progesterone: Follicular phase.......0.3 - 1.5 ng/ml Mid-luteal phase.......5.2 - 18.5 ng/ml Postmenopausal.........< 0.8 ng/ml 1st trimester.........4.7 - 50.0 ng/ml 2nd trimester.........19.4 - 45.3 ng/ml . 80 NORMAL RANGE MALES 1 - 20 NORMALLY MENSTRUATING FEMALES - Follicular Phase 3 - 9 - Mid-Cycle Peak 4 - 23 - Luteal Phase 1 - 6 POSTMENOPAUSAL FEMALES 16 - 114 . 81 NORMAL RANGE MALES 2 - 12 NORMALLY MENSTRUATING FEMALES - Follicular Phase 1 - 18 - Mid-Cycle Peak 24 - 105 - Luteal Phase 0.6 - 20 POSTMENOPAUSAL FEMALES 15 - 62 . 82 EXPECTED RESULTS (pg/ml) MALES 20-75 POSTMENOPAUSAL FEMALES 20-88 NON FEMALES Mid-Follicular Phase 24-114 Periovulatory 62-534 Mid Luteal Phase 80-273 83 REFERENCE RANGE ADULT MALES 175-781 NG/DL ADULT FEMALES 10-75 NG/DL NOTE: PEDIATRIC REFERENCE RANGES HAVE NOT BEEN ESTABLISHED FOR THIS ASSAY. PLEASE REFER TO AN EXTERNAL SOURCE FOR AN ACCURATE REFERENCE RANGE. . 84 ---- RUN DATE: 08/11/11 [facility] NMI LIVE PAGE 1 RUN TIME: 1432 Specimen Inquiry RUN USER: INTERFACE -- [id number] Status: REG REF Re08/10/11 Age/Sex: 26/F Unit#: [id number] Location: [facility]. : [birth year] -- Specimen: [id number] SOUT Spec Date: 08/10/[address]: Jessie Clayton NP Spec Type: CYTOLOGY Received: 08/11/11-0934 Copies to: SOURCE ECTOCERVICAL/ENDOCERVICAL Thin Prep with Reflex HPV Test PATIENT INFORMATION ACTUAL COLLECTION DATE: 08/10/11 ? No POST MENOPAUSAL? No LAST MENSTRUAL PERIOD: 07/28/11 DATE OF PRIOR SPECIMEN: 03/23/10 ADEQUACY OF SPECIMEN Satisfactory for evaluation * Transformation zone component not identified * DIAGNOSIS NEGATIVE FOR INTRAEPITHELIAL LESION OR MALIGNANCY * This Pap test was evaluated with the assistance of the ThinPrep Pap Test Imaging System. The Pap Smear is a screening test designed to aid in the detection of premalign ant and malignant conditions of the uterine cervix. It is not a diagnostic procedure a nd should not be used as the sole means of detecting cervical cancer. Both false- positiv e and false-negative reports do occur. Depending on your risk status, a Pap smear js uld be obtained and evaluated every one to three years. Final Interpretation electronically signed by: Raj PIMENTEL(ASCP) 08/11/11 143 1 -- -- DEPARTMENT OF PATHOLOGY, [address] [place] [address] [facility] Permit #[id number] Sawyer Wadsworth M.D. Psychotherapist Social Worker Dir ori -- 85 NORMAL GENITAL STEWART 86 Specimen Description: vaginal 87 KLEBSIELLA OXYTOCA M^MANY^QTY 88 MOD^MODERATE^QTY 89 ---- RUN DATE: 03/24/10 [facility] NMI LIVE PAGE 1 RUN TIME: 1520 Specimen Inquiry RUN USER: INTERFACE -- [id number] Status: REG REF Re03/23/10 Age/Sex: 24/F Unit#: [id number] Location: [facility]. : [birth year] -- Specimen: [id number] SOUT Spec Date: 03/23/[address] [facility] [address]: Gaby James ADJUNCT TRAINER Spec Type: CYTOLOGY Received: 03/24/10-1339 Copies to: SOURCE ECTOCERVICAL/ENDOCERVICAL Thin Prep with Reflex HPV Test PATIENT INFORMATION ACTUAL COLLECTION DATE: 03/23/10 LAST MENSTRUAL PERIOD: 03/09/10 DATE OF PRIOR SPECIMEN: 05/06/08 ADEQUACY OF SPECIMEN Satisfactory for evaluation * Transformation zone component identified * DIAGNOSIS NEGATIVE FOR INTRAEPITHELIAL LESION OR MALIGNANCY * This Pap test was evaluated with the assistance of the ThinPrep Pap Test Imaging System. The Pap Smear is a screening test designed to aid in the detection of premalign ant and malignant conditions of the uterine cervix. It is not a diagnostic procedure a nd should not be used as the sole means of detecting cervical cancer. Both false- positiv e and false-negative reports do occur. Depending on your risk status, a Pap smear js uld be obtained and evaluated every one to three years. Final Interpretation electronically signed by: Raj PIMENTEL(ASCP) 03/24/10 151 9 -- -- DEPARTMENT OF PATHOLOGY, [address] [place] [address] [facility] Permit #[id number] Sean Tapia M.D. Director Edwardo Holly M.D. Psychotherapist Social Worker Dir ori -- 90 FINAL: NEGATIVE FOR GROUP B STREPTOCOCCUS 91 Reference range: IgG and IgM Index <0.9 Negative 0.9-1.1 Equivocal >1.1 Positive Interpretation: NEGATIVE: No antibody detected. This individual may be susceptible to parvovirus B-19 infection. POSITIVE: Indicative of exposure to parvovirus B-19. EQUIVOCAL results are those results too close to the cut-off values to interpret. A second sample should be drawn in two weeks, if clinically indicated. Specific IgG persists for years, and provides lifetime immunity. A majority of adults show evidence of past infection. If definitive diagnosis of acute parvovirus infection is desired, a parvovirus B-19 IgM should be obtained. Due to the poor humoral immune response in the immunocompromised, the chronically anemic, and the fetus, both antibody and DNA PCR tests are recommended for definitive diagnosis of parvovirus B-19 infection in these patients. 92 Giant Platelets 93 Test Performed by: [facility] Dpt of Lab Med and Pathology [address] [place] [address] Telephone Exchange Operator: Onesimo Lundy III, M.D. 94 FINAL INTERPRETATION: No HIV antibody is detected. . This information has been disclosed to you from confidential records which are protected by [place] State law. State law prohibits you from making further disclosure of this information without the specific written consent of the person to whom it pertains, or as otherwise permitted by law. Any unauthorized further disclosure in violation of state law may result in a fine or longterm sentence or both. General authorization for the release of medical or other information is not, except in limited circumstances set forth in Part 63, Title 10, of [facility], sufficient authorization for further disclosure. Disclosure of confidential HIV information that occurs as the result of a general authorization for the release of medical or other information will be in violation of the state law and may result in a fine or a longterm sentence. . 95 . A negative urine result for a female patient who is clinically suspected of having a chlamydial or gonococcal infection does not rule out the presence of C.trachomatis or N.gonorrhoeae in the urogenital tract. Testing of an endocervical specimen is recommended in such cases. As well, a negative urine result for N. gonorrhoeae from a female has a lower negative predictive value than does an endocervical swab. . 96 . A negative urine result for a female patient who is clinically suspected of having a chlamydial or gonococcal infection does not rule out the presence of C.trachomatis or N.gonorrhoeae in the urogenital tract. Testing of an endocervical specimen is recommended in such cases. As well, a negative urine result for N. gonorrhoeae from a female has a lower negative predictive value than does an endocervical swab. . 97 FINAL: NO GROWTH DAY 2 (<1,000 CFU/mL) 98 PLEASE NOTE NEW REFERENCE RANGES. 99 * This method is approved for detection of Chlamydia trachomatis in Endocervical, Male Urethral and Conjunctival Specimens only. POSITIVE RESULT IN A POPULATION WITH LOW PREVALENCE OF DISEASE SHOULD BE INTERPRETED PRESUMPTIVE; INTERPRET RESULTS IN LIGHT OF HISTORY PHYSICAL FINDINGS . 100 * This method is approved for detection of Neisseria Gonnorrhoeae in Endocervical and Male Urethral Specimens only. POSITIVE RESULT IN A POPULATION WITH LOW PREVALENCE OF DISEASE SHOULD BE INTERPRETED PRESUMPTIVE; INTERPRET RESULTS IN LIGHT OF HISTORY PHYSICAL FINDINGS. . Procedures Date Code Description Status 10/31/2016 10585 Insert Intrauterine Device Completed 09/01/2016 65569 Delivery Only Completed 09/01/2016 68168 Delivery Routine Completed 04/27/2016 27230 Echography Uterus Complete Completed 03/01/2016 48483 Nuchal Translucency Ultrasound /First Gestation Completed 01/31/2016 91289 OB Ultrasound First Trimester Completed 12/15/2014 62111 OB Ultrasound First Trimester Completed 09/28/2014 87694 Echography Transvaginal Completed 09/21/2014 42748 Echography Transvaginal Completed 01/01/2013 14549 Delivery Routine Completed 12/30/2012 21341 Non-Stress Test Completed 12/25/2012 95263 Non-Stress Test Completed 12/21/2012 24574 Non-Stress Test Completed 12/18/2012 86326 Echography Uterus Follow-Up Or Repeat Completed 12/18/2012 03111 Non-Stress Test Completed 12/15/2012 49521 Non-Stress Test Completed 11/14/2012 27900 Non-Stress Test Completed 09/13/2012 51438 Echography Uterus Limited Completed 08/29/2012 74219 Echography Uterus Complete Completed 07/04/2012 77586 Nuchal Translucency Ultrasound /First Gestation Completed 06/11/2012 13811 OB Ultrasound First Trimester Completed 04/28/2009 94911 Delivery Only Completed 04/28/2009 58478 Delivery Routine Completed 04/27/2009 14877 Non-Stress Test Completed 04/09/2009 67189 Non-Stress Test Completed 02/13/2009 80926 Biophysical Profile W/ NST Completed 12/21/2008 79418 Echography Uterus Complete Completed 12/21/2008 26760 Echography Uterus Complete Completed 10/30/2008 26608 OB Ultrasound First Trimester Completed 09/08/2008 26839 OB Ultrasound First Trimester Completed 06/29/2004 82511 Biopsy Cervix Completed Encounters Type Date Location Provider Dx Diagnosis Office Visit 09/05/2018 [facility] Jessenia Fox, O36.80x0 w 3:00p CNM inconclusive viability, unsp Office Visit 08/13/2018 [facility] Samantha Crowley, O03.9 Complete or unsp 2:15p MD spontaneous without complication Office Visit 07/25/2018 [facility] Gaby Martinez, Z01.419 Encntr for pressing machine tender exam 3:00p ANP-C (general) (routine) w/o abn findings Office Visit 12/04/2016 [facility] Jojo Greenberg MD Z30.431 Encounter for routine 3:30p checking of intrauterine contracep dev Office Visit 08/23/2016 [facility] Jojo Greenberg MD Z01.818 Encounter for other 3:00p preprocedural examination O34.211 Matern care for low transverse scar from prev del Z23 Encounter for immunization Office Visit 12/15/2014 10:00a [facility] Jessie Clayton, 646.83 TACK PULLER MACHINE Complication Spec Other Antepartum Cond Or Compl V22.1 Supervison Of Normal Other Office Visit 10/27/2014 9:00a [facility] Gaby Martinez, 634.90 Spontaneous ANP-C W/O Complication Unspec Office Visit 09/28/2014 10:30a [facility] Jessie Clayton, 632 Missed TACK PULLER MACHINE Office Visit 09/21/2014 10:20a [facility] Gaby Martinez, 640.80 Hemorrhage ANP-C Early Spec Episode Care Unspec Or N/A Office Visit 12/15/2013 2:30p [facility] Jessie Clayton, V72.31 Routine Electrical Hardware Engineer TACK PULLER MACHINE Examination V76.2 Screening Malignant Neoplasm Cervix Office Visit 03/11/2013 3:40p [facility] MARISSA MenesesC 788.1 Dysuria 624.8 Vulva & Perineum Disorder Noninflammatory Spec Other Office Visit 02/21/2013 9:30a [facility] Jessie Clayton, 616.10 Vaginitis & TACK PULLER MACHINE Vulvovaginitis Unspec V76.41 Screening Malignant Neoplasm Rectum Office Visit 02/05/2013 1:00p [facility] Gaby Martinez, 616.10 Vaginitis & ANP-C Vulvovaginitis Unspec Office Visit 12/30/2012 9:00a [facility] Marco Marshall V72.83 Examination Sawyer Tate Preoperative Other Spec 576.8 Biliary Tract Disorder Other Spec Office Visit 12/15/2012 9:11a Delivery Rupal Barakat 576.8 Biliary Tract MD Donna Disorder Other Spec Office Visit 05/20/2012 3:00p [facility] Gaby Martinez, 626.0 Menstruation Absence ANP-C Office Visit 04/02/2012 8:00a [facility] Gaby Martinez, 628.9 Infertility Female ANP-C Unspec Origin 784.1 Throat Pain Office Visit 03/19/2012 2:40p [facility] Gaby Martinez, 628.9 Infertility Female ANP-C Unspec Origin Office Visit 08/10/2011 2:20p [facility] Jessie Clayton NP V76.2 Screening Malignant Neoplasm Cervix 611.79 Breast Signs & Symptoms Other V72.31 Routine Electrical Hardware Engineer Examination Office Visit 02/23/2011 9:40a [facility] Gaby Martinez, 616.10 Vaginitis & ANP-C Vulvovaginitis Unspec Office Visit 02/07/2011 2:40p [facility] Gaby Martinez, 616.10 Vaginitis & ANP-C Vulvovaginitis Unspec Office Visit 04/25/2010 3:00p [facility] Gaby Martinez, 611.79 Breast Signs & ANP-C Symptoms Other Office Visit 03/23/2010 3:20p [facility] Gaby Martinez, V72.31 Routine Electrical Hardware Engineer ANP-C Examination V76.2 Screening Malignant Neoplasm Cervix 789.9 Abdomen & Pelvis Symptoms Other V25.49 Contraceptive Other Method Surveillance 611.79 Breast Signs & Symptoms Other Office Visit 03/04/2010 2:20p [facility] Camelia Lamas, V72.40 Test M.D. Unconfirm 626.2 Menstruation Excessive Or Frequent V25.41 Contraceptive Pill Surveillance Office Visit 09/15/2009 2:20p [facility] Camelia Lamas M.D. 625.0 Dyspareunia V26.9 Procreative Management Unspec Office Visit 02/13/2009 4:06p Delivery Isaiah Cruz, 655.73 Movements M.D. Decreased Antepartum Cond Or Compl Office Visit 09/17/2008 11:00a [facility] Tia Carbone, 787.01 Nausea W/ Suite Q CNM Vomiting Office Visit 09/08/2008 11:00a [facility] Isabela Kruger, V22.1 Supervison Of Suite Q CNM Normal Other V26.33 Genetic Counseling Office Visit 05/18/2008 10:00a [facility] Rita Carlson 611.79 Breast Signs & Suite Q TACK PULLER MACHINE, CNM Symptoms Other 611.6 Galactorrhea Not Associated W/ Childbirth Office Visit 05/05/2008 3:40p [facility] Rita Carlson V72.31 Routine Electrical Hardware Engineer TACK PULLER MACHINE, CNM Examination V76.2 Screening Malignant Neoplasm Cervix 611.6 Galactorrhea Not Associated W/ Childbirth 611.79 Breast Signs & Symptoms Other Office Visit 01/03/2008 3:00p [facility] Gaby Martinez, V25.49 Contraceptive Other ANP-C Method Surveillance 599.9 Urethra & Urinary Tract Unspec Disorder Office Visit 12/30/2004 3:45p [facility] Gaby Martinez, V72.31 Routine Electrical Hardware Engineer ANP-C Examination V78.0 Screening Iron Deficiency Anemia Office Visit 06/29/2004 1:20p [facility] Isaiah Cruz, 625.8 Female Genital M.D. Organs Spec Symptoms Other Office Visit 04/19/2004 8:30a [facility] Gaby Martinez, V25.40 Contraceptive ANP-C Sureveillance Unspec V72.4 Examination Or Test Unconfirmed V78.0 Screening Iron Deficiency Anemia Office Visit 12/22/2003 2:15p [facility] Gaby Martinez V72.3 Examination ANP-C Gynecological Office Visit 10/09/2003 1:00p [facility] Camelia Payan 112.1 Candidiasis The Vulva Sawyer Lamas & Vagina 616.10 Vaginitis & Vulvovaginitis Unspec Plan of Treatment No Information Available
[2018-09-23 19:50] LABS: Hematocrit 36 % (35-47); Hemoglobin 12.3 g/dl (12.0-16.0); Mean Corpuscular HGB Conc 34 g/dl (31-36); Mean Corpuscular Hemoglobin 30 pg (27-31); Mean Corpuscular Volume 89 fL (80-97); Mean Platelet Volume 10.6 fL (7.4-10.4); Platelet Count 132 10^3/ul (150-450); Red Blood Count 4.08 10^6/ul (4.00-5.40); Red Cell Distribution Width 13 % (10.5-15); White Blood Count 6.4 10^3/ul (3.5-10.8)
[2018-09-23 19:53] LABS: ABS Basophils 0 10^3/ul (0-0.2); ABS Eosinophils 0.1 10^3/ul (0-0.6); ABS Monocytes 0.4 10^3/ul (0-0.8); ABS Neutrophils 3.9 10^3/ul (1.5-7.7); ABS Nucleated RBC 0 10^3/ul; Lymphocyte % 31.9 %; Nucleated Red Blood Cells % 0
[2018-09-23 20:11] LABS: EGFR Non-African American 141.2 (>60)
--- NOTE | 2018-09-23 22:49 | ED ---
- HPI Summary HPI Summary: Patient with history of 6 weeks complains of vaginal spotting and bilateral lower abdominal cramping starting today. Patient states she [facility] ago with intrauterine gestation of unknown viability. [facility] appointment next . Denies fever, cough, sore throat, CP, N/V/D, change in urine, change in BM, vaginal symptoms other than bleeding. Medical history is none. . - History of Current Complaint Chief Complaint: EDVaginalBleeding Stated Complaint: 6 WKS PREG/CRAMPING/SPOTTING Time Seen by Provider: 09/23/18 20:48 Hx Obtained From: Patient Onset/Duration: Started Hours Ago Timing: Intermittent Severity: Mild Current Severity: Mild Pain Intensity: 3 Location of Pain: Left Side, Right Side Character: Cramping Aggravating Factors: Nothing Alleviating Factors: Nothing Associated Signs and Symptoms: Positive: Vaginal Bleeding or Discharge - Assessment Hx Now: Yes Hx : 6 Hx Para: 3 SAB: 3 IEA: 1 Hx Last Menstrual Period: 07/08/18 - Additional Pertinent History Maternal Blood Type and Rh: O Positive - Allergies/Home Medications Allergies/Adverse Reactions: Allergies Allergy/AdvReac Type Severity Reaction Status Date / Time hydromorphone Allergy Rash Verified 09/23/18 18:50 morphine Allergy Anaphylatic Verified 09/23/18 18:50 Shock PMH/Surg Hx/FS Hx/Imm Hx Endocrine/Hematology History: Denies: Hx Diabetes, Hx Thyroid Disease Cardiovascular History: Denies: Hx Hypertension Respiratory History: Denies: Hx Asthma, Hx Chronic Obstructive Pulmonary Disease (COPD) GI History: Denies: Hx Ulcer Neurological History: Reports: Hx Migraine - since childhood Denies: Other Neuro Impairments/Disorders Psychiatric History: Reports: Hx Anxiety, Hx Depression, Other Psychiatric Issues/Disorders - migraine with aura - Surgical History Surgery Procedure, Year, and Place: 3 c-sections; plate in jaw and rods in both femurs; wisdom teeth Infectious Disease History: No Infectious Disease History: Denies: Hx Clostridium Difficile, Hx Hepatitis, Hx Human Immunodeficiency Virus (HIV), Hx of Known/Suspected MRSA, Hx Shingles, Hx Tuberculosis, Hx Known/ Suspected VRE, Hx Known/Suspected VRSA, History Other Infectious Disease, Traveled Outside the [place] in Last 30 Days - Family History Known Family History: Positive: None Negative: Renal Disease, Respiratory Disease, Seizure Disorder - Social History Alcohol Use: None Substance Use Type: Reports: None Smoking Status (MU): Never Smoked Tobacco Review of Systems Constitutional: Negative Eyes: Negative ENT: Negative Cardiovascular: Negative Respiratory: Negative Positive: Abdominal Pain Genitourinary: Negative Musculoskeletal: Negative Skin: Negative Neurological: Negative Psychological: Normal All Other Systems Reviewed And Are Negative: Yes Physical Exam - Summary Physical Exam Summary: Abdomen nontender to palpation in all quadrants. - Physical Exam Triage Information Reviewed: Yes Vital Signs Reviewed: Yes Appearance: Positive: Well-Appearing Skin: Positive: Warm Head/Face: Positive: Normal Head/Face Inspection Eyes: Positive: Normal Neck: Positive: Supple Respiratory/Lung Sounds: Positive: Clear to Auscultation Cardiovascular: Positive: Normal Abdomen Description: Positive: Nontender Musculoskeletal: Positive: Normal Neurological: Positive: Normal Psychiatric: Positive: Normal AVPU Assessment: Alert - [place] Coma Scale Eye: 4 - Spontaneous Motor: 6 - Obeys Commands Verbal: 5 - Oriented Coma Scale Total: 15 Diagnostics - Vital Signs Vital Signs Temp Pulse Resp BP Pulse Ox 09/23/18 18:47 98.8 F 82 16 117/71 100 - Laboratory Lab Results: Lab Results 09/23/18 09/23/18 09/23/18 Range/Units 19:36 19:36 19:36 WBC 6.4 (3.5-10.8) 10^3/ul RBC 4.08 (4.00-5.40) 10^6/ul Hgb 12.3 (12.0-16.0) g/dl Hct 36 (35-47) % MCV 89 (80-97) fL MCH 30 (27-31) pg MCHC 34 (31-36) g/dl RDW 13 (10.5-15) % Plt Count 132 L (150-450) 10^3/ul MPV 10.6 H (7.4-10.4) fL Neut % (Auto) 61.0 % Lymph % (Auto) 31.9 % [place] % (Auto) 5.6 % Eos % (Auto) 1.0 % Baso % (Auto) 0.5 % Absolute Neuts (auto) 3.9 (1.5-7.7) 10^3/ul Absolute Lymphs (auto) 2.0 (1.0-4.8) 10^3/ul Absolute Monos (auto) 0.4 (0-0.8) 10^3/ul Absolute Eos (auto) 0.1 (0-0.6) 10^3/ul Absolute Basos (auto) 0 (0-0.2) 10^3/ul Absolute Nucleated RBC 0 10^3/ul Nucleated RBC % 0 Sodium 137 (135-145) mmol/L Potassium 3.8 (3.5-5.0) mmol/L Chloride 106 (101-111) mmol/L Carbon Dioxide 26 (22-32) mmol/L Anion Gap 5 (2-11) mmol/L BUN 10 (6-24) mg/dL Creatinine 0.50 L (0.51-0.95) mg/dL Est GFR ( Amer) 170.9 (>60) Est GFR (Non-Af Amer) 141.2 (>60) BUN/Creatinine Ratio 20.0 (8-20) Glucose 90 (70-100) mg/dL Calcium 9.4 (8.6-10.3) mg/dL Total Bilirubin 1.20 H (0.2-1.0) mg/dL AST 14 (13-39) U/L ALT 12 (7-52) U/L Alkaline Phosphatase 36 (34-104) U/L Total Protein 7.3 (6.4-8.9) g/dL Albumin 4.6 (3.2-5.2) g/dL Globulin 2.7 (2-4) g/dL Albumin/Globulin Ratio 1.7 (1-3) Beta HCG, Quant 5571.00 mIU/mL Blood Type O Positive Antibody Screen Negative Result Diagrams: 09/23/18 19:36 09/23/18 19:36 Lab Statement: Any lab studies that have been ordered have been reviewed, and results considered in the medical decision making process. Course/Dx - Course Course Of Treatment: Patient with history of 6 weeks complains of vaginal spotting and bilateral lower abdominal cramping starting today. Patient states [facility] with intrauterine gestation of unknown viability. [employer] [facility] appointment next . Denies fever, cough, sore throat, CP, N/V/D, change in urine, change in BM, vaginal symptoms other than bleeding. Medical history is none. . Physical exam:Abdomen nontender to palpation in all quadrants. Vital signs within normal limits. Labs unremarkable. Ultrasound transvaginal indicates intrauterine gestational sac of unknown viability. No yolk sac or pole. Recommend patient follow up for repeat hCG in 2 days. Patient understands and approves of plan. - Diagnoses Provider Diagnoses: , Vaginal spotting, Threatened miscarriage in early Discharge - Sign-Out/Discharge Documenting (check all that apply): Patient Departure - Discharge Plan Condition: Stable Disposition: HOME Patient Education Materials: Threatened Miscarriage (ED), (ED) Referrals: Jesus Barron MD [Primary Care Provider] - Additional Instructions: Follow-up with her [facility] for repeat hCG levels in 2 days. Return to the ED for any new or worsening symptoms. - Billing Disposition and Condition Condition: STABLE Disposition: Home
[2018-09-23 22:59] VITALS: BP 114/74
== END 2018-09-23 22:57 | disposition home or self-care (01) ==
LOC: ED 18:44
DX: O26.851 Spotting complicating pregnancy, first trimester (principal); O20.0 Threatened abortion; Z3A.01 Less than 8 weeks gestation of pregnancy; Z88.5 Allergy status to narcotic agent
CPT/HCPCS: 36415; 76817; 80053; 84702; 85025; 86850; 86900; 86901; 99282

== ENCOUNTER 2018-09-26 19:20 | Emergency (ER) | payer OTHER ==
[2018-09-26 21:13] LABS: ABS Basophils 0.1 10^3/ul (0-0.2); ABS Eosinophils 0.1 10^3/ul (0-0.6); ABS Monocytes 0.3 10^3/ul (0-0.8); ABS Neutrophils 8.5 10^3/ul (1.5-7.7); ABS Nucleated RBC 0 10^3/ul; Eosinophil % 0.8 %; Hematocrit 36 % (35-47); Hemoglobin 11.9 g/dl (12.0-16.0); Mean Corpuscular HGB Conc 34 g/dl (31-36); Mean Corpuscular Hemoglobin 30 pg (27-31); Mean Corpuscular Volume 89 fL (80-97); Mean Platelet Volume 10.8 fL (7.4-10.4); Nucleated Red Blood Cells % 0; Platelet Count 127 10^3/ul (150-450); Red Cell Distribution Width 13 % (10.5-15); White Blood Count 10.9 10^3/ul (3.5-10.8)
[2018-09-26 21:26] LABS: INR 1.01 (0.77-1.02)
[2018-09-26 21:29] LABS: EGFR Non-African American 132.1 (>60)
[2018-09-26 21:45] LABS: Urine Appearance Clear; Urine Blood 3+ (Negative); Urine Color Yellow; Urine Ketones Trace (Negative); Urine Protein Negative (Negative); Urine Red Blood Cell 3+(>10/hpf) (Absent); Urine Urobilinogen Negative (Negative); Urine White Blood Cell 1+(6-10/hpf) (Absent)
--- NOTE | 2018-09-26 22:12 | ED ---
- HPI Summary HPI Summary: A 33 y/o female accompanied by family presents to ED c/o abdominal pain. Currently, the patient is still experiencing RLQ abdominal pain reaching 8/10 in severity. As per triage, "Patient reports in process of miscarriage and lower abdominal pain has increased. Seen here for same 2 days ago and had ultrasound. No change in bleeding per patient". According to the patient, she was has been experiencing RLQ abdominal pain for the past couple days, however, she is also experiencing bleeding from the vagina. She stated that originally the bleeding started as spotting, however, it became much more severe, the worse occurring yesterday. Today, she still has bleeding but similar to a period. She noted that she did pass some clots. She is changing her pads once per hour. Sees [facility] [place]. - History of Current Complaint Chief Complaint: EDOBProblems Stated Complaint: ABD PAIN Time Seen by Provider: 09/26/18 21:11 Hx Obtained From: Patient Onset/Duration: Started Days Ago, Still Present Timing: Constant Severity: Severe Current Severity: Severe Pain Intensity: 8 Location of Pain: Other: - RLQ abdominal pain Aggravating Factors: Nothing Alleviating Factors: Nothing Associated Signs and Symptoms: Positive: Vaginal Bleeding or Discharge - VAGINAL BLEEDING - Assessment Hx Now: Yes Hx : 6 Hx Para: 3 SAB: 3 IEA: 1 Hx Last Menstrual Period: 07/08/18 - Additional Pertinent History Maternal Blood Type and Rh: O Positive - Allergies/Home Medications Allergies/Adverse Reactions: Allergies Allergy/AdvReac Type Severity Reaction Status Date / Time hydromorphone Allergy Rash Verified 09/23/18 18:50 morphine Allergy Anaphylatic Verified 09/23/18 18:50 Shock PMH/Surg Hx/FS Hx/Imm Hx Endocrine/Hematology History: Denies: Hx Diabetes, Hx Thyroid Disease Cardiovascular History: Denies: Hx Hypertension Respiratory History: Denies: Hx Asthma, Hx Chronic Obstructive Pulmonary Disease (COPD) GI History: Denies: Hx Ulcer Neurological History: Reports: Hx Migraine - since childhood Denies: Other Neuro Impairments/Disorders Psychiatric History: Reports: Hx Anxiety, Hx Depression, Other Psychiatric Issues/Disorders - migraine with aura - Surgical History Surgery Procedure, Year, and Place: 3 c-sections; plate in jaw and rods in both femurs; wisdom teeth Infectious Disease History: No Infectious Disease History: Denies: Hx Clostridium Difficile, Hx Hepatitis, Hx Human Immunodeficiency Virus (HIV), Hx of Known/Suspected MRSA, Hx Shingles, Hx Tuberculosis, Hx Known/ Suspected VRE, Hx Known/Suspected VRSA, History Other Infectious Disease, Traveled Outside the [place] in Last 30 Days - Family History Known Family History: Negative: Renal Disease, Respiratory Disease, Seizure Disorder - Social History Alcohol Use: None Substance Use Type: Reports: None Smoking Status (MU): Never Smoked Tobacco Review of Systems Negative: Fever Positive: Abdominal Pain Positive: other - POSITIVE: VAGINAL BLEEDING All Other Systems Reviewed And Are Negative: Yes Physical Exam - Summary Physical Exam Summary: Appearance: Well appearing, no pain distress Skin: warm, dry, reflects adequate perfusion Head/face: normal Eyes: EOMI, ZAIRA ENT: normal Neck: supple, non-tender Respiratory: CTA, breath sounds present Cardiovascular: RRR, pulses symmetrical Abdomen: RLQ tenderness, soft Musculoskeletal: normal, strength/ROM intact Neuro: normal, sensory motor intact, A&Ox3 - Physical Exam Triage Information Reviewed: Yes Vital Signs Reviewed: Yes Diagnostics - Vital Signs Vital Signs Temp Pulse Resp BP Pulse Ox 09/26/18 19:25 98.7 F 69 16 110/64 98 - Laboratory Lab Results: Lab Results 09/26/18 09/26/18 09/26/18 Range/Units 21:01 21:01 21:01 WBC 10.9 H (3.5-10.8) 10^3/ul RBC 4.00 (4.00-5.40) 10^6/ul Hgb 11.9 L (12.0-16.0) g/dl Hct 36 (35-47) % MCV 89 (80-97) fL MCH 30 (27-31) pg MCHC 34 (31-36) g/dl RDW 13 (10.5-15) % Plt Count 127 L (150-450) 10^3/ul MPV 10.8 H (7.4-10.4) fL Neut % (Auto) 77.9 % Lymph % (Auto) 18.0 % Morton % (Auto) 2.8 % Eos % (Auto) 0.8 % Baso % (Auto) 0.5 % Absolute Neuts (auto) 8.5 H (1.5-7.7) 10^3/ul Absolute Lymphs (auto) 2.0 (1.0-4.8) 10^3/ul Absolute Monos (auto) 0.3 (0-0.8) 10^3/ul Absolute Eos (auto) 0.1 (0-0.6) 10^3/ul Absolute Basos (auto) 0.1 (0-0.2) 10^3/ul Absolute Nucleated RBC 0 10^3/ul Nucleated RBC % 0 INR (Anticoag Therapy) 1.01 (0.77-1.02) APTT 32.1 (26.0-36.3) seconds Sodium 137 (135-145) mmol/L Potassium 3.8 (3.5-5.0) mmol/L Chloride 104 (101-111) mmol/L Carbon Dioxide 29 (22-32) mmol/L Anion Gap 4 (2-11) mmol/L BUN 14 (6-24) mg/dL Creatinine 0.53 (0.51-0.95) mg/dL Est GFR ( Amer) 159.8 (>60) Est GFR (Non-Af Amer) 132.1 (>60) BUN/Creatinine Ratio 26.4 H (8-20) Glucose 101 H (70-100) mg/dL Calcium 9.7 (8.6-10.3) mg/dL Total Bilirubin 1.20 H (0.2-1.0) mg/dL AST 15 (13-39) U/L ALT 12 (7-52) U/L Alkaline Phosphatase 40 (34-104) U/L Total Protein 7.3 (6.4-8.9) g/dL Albumin 4.6 (3.2-5.2) g/dL Globulin 2.7 (2-4) g/dL Albumin/Globulin Ratio 1.7 (1-3) Beta HCG, Quant 1007.48 mIU/mL Urine Color Urine Appearance Urine pH (5-9) Ur Specific [place] (1.010-1.030) Urine Protein (Negative) Urine Ketones (Negative) Urine Blood (Negative) Urine Nitrate (Negative) Urine Bilirubin (Negative) Urine Urobilinogen (Negative) Ur Leukocyte Esterase (Negative) Urine WBC (Auto) (Absent) Urine RBC (Auto) (Absent) Ur Squamous Epith Cells (Absent) Urine Bacteria (Absent) Urine Glucose (Negative) Blood Type Antibody Screen 09/26/18 09/26/18 Range/Units 21:01 21:29 WBC (3.5-10.8) 10^3/ul RBC (4.00-5.40) 10^6/ul Hgb (12.0-16.0) g/dl Hct (35-47) % MCV (80-97) fL MCH (27-31) pg MCHC (31-36) g/dl RDW (10.5-15) % Plt Count (150-450) 10^3/ul MPV (7.4-10.4) fL Neut % (Auto) % Lymph % (Auto) % Morton % (Auto) % Eos % (Auto) % Baso % (Auto) % Absolute Neuts (auto) (1.5-7.7) 10^3/ul Absolute Lymphs (auto) (1.0-4.8) 10^3/ul Absolute Monos (auto) (0-0.8) 10^3/ul Absolute Eos (auto) (0-0.6) 10^3/ul Absolute Basos (auto) (0-0.2) 10^3/ul Absolute Nucleated RBC 10^3/ul Nucleated RBC % INR (Anticoag Therapy) (0.77-1.02) APTT (26.0-36.3) seconds Sodium (135-145) mmol/L Potassium (3.5-5.0) mmol/L Chloride (101-111) mmol/L Carbon Dioxide (22-32) mmol/L Anion Gap (2-11) mmol/L BUN (6-24) mg/dL Creatinine (0.51-0.95) mg/dL Est GFR ( Amer) (>60) Est GFR (Non-Af Amer) (>60) BUN/Creatinine Ratio (8-20) Glucose (70-100) mg/dL Calcium (8.6-10.3) mg/dL Total Bilirubin (0.2-1.0) mg/dL AST (13-39) U/L ALT (7-52) U/L Alkaline Phosphatase (34-104) U/L Total Protein (6.4-8.9) g/dL Albumin (3.2-5.2) g/dL Globulin (2-4) g/dL Albumin/Globulin Ratio (1-3) Beta HCG, Quant mIU/mL Urine Color Yellow Urine Appearance Clear Urine pH 5.0 (5-9) Ur Specific [place] 1.020 (1.010-1.030) Urine Protein Negative (Negative) Urine Ketones Trace A (Negative) Urine Blood 3+ A (Negative) Urine Nitrate Negative (Negative) Urine Bilirubin Negative (Negative) Urine Urobilinogen Negative (Negative) Ur Leukocyte Esterase Trace A (Negative) Urine WBC (Auto) 1+(6-10/hpf) A (Absent) Urine RBC (Auto) 3+(>10/hpf) A (Absent) Ur Squamous Epith Cells Present A (Absent) Urine Bacteria Absent (Absent) Urine Glucose Negative (Negative) Blood Type O Positive Antibody Screen Negative Result Diagrams: 09/26/18 21:01 09/26/18 21:01 Lab Statement: Any lab studies that have been ordered have been reviewed, and results considered in the medical decision making process. - Ultrasound No standard instances Ultrasound Interpretation Completed By: Radiologist - TRANSVAGINAL US: Findings of an incomplete miscarriage. ED PHYSICIAN REVIEWED THIS RADIOLOGY REPORT. Course/Dx - Course Course Of Treatment: A 33 y/o female accompanied by family presents to ED c/o abdominal pain. Currently, the patient is still experiencing RLQ abdominal pain reaching 8/10 in severity. As per triage, "Patient reports in process of miscarriage and lower abdominal pain has increased. Seen here for same 2 days ago and had ultrasound. No change in bleeding per patient". According to the patient, she was has been experiencing RLQ abdominal pain for the past couple days, however, she is also experiencing bleeding from the vagina. She stated that originally the bleeding started as spotting, however, it became much more severe, the worse occurring yesterday. Today, she still has bleeding but similar to a period. She noted that she did pass some clots. She is changing her pads once per hour. Sees [facility] [place]. Physical exam revealed RLQ tenderness. A Transvaginal US revealed findings of an incomplete miscarriage. Hematology, Chemistry, and Urinalysis done. Labs significant for WBC 10.9, Hgb 11.9, Plt Count 127, MPV 10.8, and Glucose 101. In the ED course, the patient recieved Cytotec and Percocet. Patient care was discussed with Dr. Fried who recommended Misoprostol and follow up as outpatient. Patient declined Misoprostol. Patient will be discharged with a diagnosis of incomplete . Patient is to follow up with Dr. Fried in 2-3 days. Patient is to return to ED for any new or worsening symptoms. Patient is agreeable with this plan. - Differential Diagnosis/HQI/PQRI: Incomplete , Spontaneous , Threatened - Diagnoses Provider Diagnoses: Incomplete - Provider Notifications Discussed Care Of Patient With: Lolis Fried Time Discussed With Above Provider: 23:24 Instructed by Provider To: Other - RECOMMENDS MISOPROSTOL AND DISCHARGE. PATIENT IS TO FOLLOW UP OUTPATIENT. Discharge - Sign-Out/Discharge Documenting (check all that apply): Patient Departure - DISCHARGE - Discharge Plan Condition: Stable Disposition: HOME Patient Education Materials: Miscarriage (ED) Referrals: Jesus Barron MD [Primary Care Provider] - 3 Days Additional Instructions: FOLLOW UP WITH DR. FRIED ([facility] [place]) ON SUNDAY. RETURN TO ED FOR ANY NEW OR WORSENING SYMPTOMS. - Billing Disposition and Condition Condition: STABLE Disposition: Home - Attestation Statements Document Initiated by Essence: Yes Documenting Scribe: Anthony Palomo Provider For Whom Essence is Documenting (Include Credential): Shantanu Layne MD Scribe Attestation: Anthony Méndez scribed for Shantanu Layne MD on 09/27/18 at 0143. Scribe Documentation Reviewed: Yes Provider Attestation: The documentation as recorded by the Anthony jones accurately reflects the service I personally performed and the decisions made by , Shantanu Layne MD Status of Scribe Document: Viewed
[2018-09-26] MEDS ORDERED: Misoprostol TAB* 200 MCG PO ONE (23:21)
[2018-09-26] MEDS ORDERED: Misoprostol TAB* 200 MCG VAGINAL ONE (23:23)
[2018-09-26] MEDS ORDERED: oxyCODONE/Acetamin 5/325 MG* TAB PO ONE (23:28)
[2018-09-26 23:50] VITALS: BP 123/75
== END 2018-09-26 23:49 | disposition home or self-care (01) ==
LOC: ED 19:20
DX: O03.4 Incomplete spontaneous abortion without complication (principal); Z88.5 Allergy status to narcotic agent
CPT/HCPCS: 36415; 76817; 80053; 81003; 81015; 84702; 85025; 85610; 85730; 86850; 86900; 86901; 87086; 99282; A9270-GY

== ENCOUNTER → 2018-12-12 07:20 | Day surgery (SDC) | payer OTHER ==
[~2018-12-12 07:20] MED LIST: Acetaminophen TAB* 325 MG ONE; Acetaminophen TAB* 325 MG PO ONE; Buffered Lidocaine 1% SYRIN* 1 ML/SYRINGE INTRADERM ONE; DOXYcycline IV 200 MG in NS 250 mL *Pre-Op OBGYN IVPB ONE; Dexamethasone IV* 4 MG/ML 1 ML (4 MG) ONE; Famotidine IV* 10 MG/ML 2 ML (20 mg) IV ONE; Famotidine IV* 10 MG/ML 2 ML (20 mg) ONE; Ketorolac INJ* 30 MG/ML 1 ML VIAL ONE; Lactated Ringers 1000 ML Bag* 1,000 ML IV SCH; Lidocaine 1%* 5 ML VIAL ONE; Lidocaine 2% PF * 5 ML VIAL ONE; Midazolam* 1 MG/ML 2 ML VIAL (2 MG) ONE; Misoprostol TAB* 200 MCG ONE; Ondansetron INJ* 2 MG/ML VIAL ONE; Propofol* 10 MG/ML 20 ML BTL ONE; fentaNYL* 50 MCG/ML 2 ML VIAL (100 MCG VIAL) ONE
[2018-12-12 08:03] LABS: ABS Basophils 0 10^3/ul (0-0.2); ABS Eosinophils 0.1 10^3/ul (0-0.6); ABS Lymphocytes 1.3 10^3/ul (1.0-4.8); ABS Monocytes 0.3 10^3/ul (0-0.8); ABS Neutrophils 3.8 10^3/ul (1.5-7.7); ABS Nucleated RBC 0 10^3/ul; Eosinophil % 1.3 %; Hematocrit 36 % (35-47); Hemoglobin 12.3 g/dl (12.0-16.0); Lymphocyte % 23.9 %; Mean Corpuscular HGB Conc 34 g/dl (31-36); Mean Corpuscular Hemoglobin 31 pg (27-31); Mean Corpuscular Volume 90 fL (80-97); Mean Platelet Volume 9.8 fL (7.4-10.4); Nucleated Red Blood Cells % 0; Platelet Count 112 10^3/ul (150-450); Red Blood Count 3.96 10^6/ul (4.00-5.40); Red Cell Distribution Width 14 % (10.5-15); White Blood Count 5.6 10^3/ul (3.5-10.8)
[2018-12-12 11:48] VITALS: BP 114/66
--- NOTE | 2018-12-12 11:51 | OP ---
OPERATIVE REPORT: DATE OF OPERATION: 12/12/18 DATE OF : 83 SURGEON: Dr. Lolis Gomez. ANESTHESIOLOGIST: Dr. Maher. ANESTHESIA: Spinal with sedation. PRE-OP DIAGNOSIS: Missed , 7 weeks. POST-OP DIAGNOSIS: Missed , 7 weeks. OPERATIVE PROCEDURE: Dilatation, evacuation, and curettage. ESTIMATED BLOOD LOSS: Less than 100 cc. URINE OUTPUT: Less than 20 cc of clear yellow urine. FLUIDS: 1000 cc of crystalloid. FINDINGS: Revealed intrauterine contents consistent with products of conception. Complete removal wa s appreciated with curettage; 800 mcg of Cytotec placed post curettage. COMPLICATIONS: None apparent. DISPOSITION: Stable to recovery room. DESCRIPTION OF PROCEDURE: Patient was placed in [facility]. The perineum and vagina were p repped and draped in a sterile standard fashion. Patient was identified with universal protocol for correct procedure, position, and patient. The patient was given doxycycline 200 mg IV prior to the pr ocedure. Self-cath was placed for drainage of clear yellow urine 20 cc. Self-cath was removed. William rile speculum was inserted. Cervix was visualized, grasped from the anterior lip and dilated to #9 H egar dilator, and 8 mm curved suction curette was then applied for complete evacuation of intrauterin e contents. A sharp curettage was then performed, confirming complete removal of intrauterine conten ts. The intrauterine contents appeared to be consistent with products of conception. Single-toothed tenaculum was removed. Hemostasis was noted; 800 mcg of Cytotec was placed. Sterile speculum was re moved. All sponge, instrument and blade counts were correct throughout the case. Patient tolerated the procedure well. [id number]/[facility] #: [id number]
== END | disposition home or self-care (01) ==
LOC: OR 07:20
PROVIDERS: ATTEND Obstetrics & Gynecology
DX: O02.1 Missed abortion (principal); Z3A.01 Less than 8 weeks gestation of pregnancy; G43.109 Migraine with aura, not intractable, without status migrainosus; Z88.5 Allergy status to narcotic agent
CPT/HCPCS: 36415; 85025; 86850; 86900; 86901; 88305; A9270-GY; J1100; J1885; J2250; J2405; J2704; J3010

== ENCOUNTER 2019-02-14 10:16 | Emergency (ER) | payer OTHER ==
[2019-02-14 10:28] VITALS: BP 108/67
--- NOTE | 2019-02-14 10:45 | UC ---
Nausea/Vomiting/Diarrhea HPI - HPI Summary HPI Summary: 33-year-old woman comes in with a chief complaint of diarrhea for 3 days. Patient reports eating salad down in [place] and she's had diarrhea ever since. No vomiting. She does have some nausea. She's had intermittent abdominal cramping but no persistent abdominal pain. No fevers or chills. Has not seen any blood in the diarrhea. Does not have a chronic history of recurrent diarrhea. Feels fatigued. - History of Current Complaint Chief Complaint: UCGI Stated Complaint: STOMACH PAIN Time Seen by Provider: 02/14/19 10:29 Hx Last Menstrual Period: 2 weeks ago Pain Intensity: 5 - Allergies/Home Medications Allergies/Adverse Reactions: Allergies Allergy/AdvReac Type Severity Reaction Status Date / Time morphine Allergy Severe Anaphylatic Verified 02/14/19 10:28 Shock hydromorphone Allergy Intermediate Rash Verified 02/14/19 10:28 PMH/Surg Hx/FS Hx/Imm Hx Previously Healthy: Yes Other History Of: Negative For: HIV, Hepatitis B - Surgical History Surgical History: Yes Surgery Procedure, Year, and Place: 3 c-sections. Plate in jaw and rods in both femurs- age 17 - 3 leg surgeries- 1 jaw procedure. [place] teeth extractions - Family History Known Family History: Negative: Renal Disease, Respiratory Disease, Seizure Disorder - Social History Alcohol Use: None Substance Use Type: None Smoking Status (MU): Never Smoked Tobacco - Immunization History Most Recent Influenza Vaccination: 08/23/16 Most Recent Tetanus Shot: 06/19/16 Most Recent Pneumonia Vaccination: none Review of Systems All Other Systems Reviewed And Are Negative: Yes Constitutional: Positive: Fatigue. Negative: Fever Skin: Positive: Negative Eyes: Positive: Negative ENT: Positive: Negative Respiratory: Positive: Negative Cardiovascular: Positive: Negative Gastrointestinal: Positive: Diarrhea, Nausea Motor: Positive: Negative Neurovascular: Positive: Negative Musculoskeletal: Positive: Negative Neurological: Positive: Negative Psychological: Positive: Negative Is Patient Immunocompromised?: No Physical Exam Triage Information Reviewed: Yes Appearance: Well-Appearing, No Pain Distress, Well-Nourished Vital Signs: Initial Vital Signs Temp 98.1 F 02/14/19 10:24 Pulse 87 02/14/19 10:24 Resp 18 02/14/19 10:24 BP 108/67 02/14/19 10:24 Pulse Ox 99 02/14/19 10:24 Vital Signs Reviewed: Yes Eye Exam: Normal Eyes: Positive: Conjunctiva Clear Neck: Positive: Supple Respiratory: Positive: Lungs clear, Normal breath sounds, No respiratory distress Cardiovascular: Positive: RRR Abdomen Description: Positive: Nontender, Soft. Negative: CVA Tenderness (R), CVA Tenderness (L) Bowel Sounds: Positive: Present Musculoskeletal Exam: Normal Musculoskeletal: Positive: Strength Intact, ROM Intact Neurological Exam: Normal Neurological: Positive: Alert, Muscle Tone Normal Psychological Exam: Normal Psychological: Positive: Age Appropriate Behavior Skin Exam: Normal Naus/Vom/Diarrhea Course/Dx - Course Course Of Treatment: Patient was sent home with a stool kit. We discussed staying hydrated. Did send a prescription for Zofran for antinausea. Patient knows that if she gets worse as fevers getting dehydrated blood in her stools having pain she needs to get reevaluated right away. I let her know that we need to have the cultures back with no bacteria prior to starting any [id number] medication such as Imodium. Follow-up with primary care doctor reevaluation sooner if worse or any questions or concerns. - Differential Dx/Diagnosis Provider Diagnosis: Diarrhea Condition At Discharge: Stable Discharge - Sign-Out/Discharge Documenting (check all that apply): Patient Departure All imaging exams completed and their final reports reviewed: No Studies - Discharge Plan Condition: Stable Disposition: HOME Prescriptions: Ondansetron ODT TAB* [Zofran 4 MG Odt TAB*] 4 mg PO Q6H PRN #10 tab.odt PRN Reason: Nausea Patient Education Materials: Acute Diarrhea (ED) Referrals: Jesus Barron MD [Primary Care Provider] - Additional Instructions: FOLLOW UP WITH YOUR DOCTOR IF NOT COMPLETELY IMPROVED. IF THE STOOL CULTURES ARE NEGATIVE (NO BACTERIAL CAUSE), YOU CAN USE OVER THE COUNTER IMODIUM. GET REEVALUATED SOONER IF YOUR CONDITION WORSENS; ABDOMINAL PAIN, FEVER, DEHYDRATION, BLOOD IN YOUR STOOL, YOU FEEL ILL OR ANY QUESTIONS OR CONCERNS. - Billing Disposition and Condition Condition: STABLE Disposition: Home
--- NOTE | 2019-02-15 11:36 | UC ---
- Progress Note Progress Note: reviewed notes and results as available from 02/14/19. + lactoferrin and + occult blood. Full cultures still pending. C/w inflammatory condition. important to f/u with primary care physician when symptoms improved to check for occult blood. seek medical attention for worse or new problems. RN to call pt with the above. Course/Dx - Diagnoses Provider Diagnoses: Diarrhea Discharge - Sign-Out/Discharge Documenting (check all that apply): Post-Discharge Follow Up All imaging exams completed and their final reports reviewed: No Studies - Discharge Plan Condition: Stable Disposition: HOME Prescriptions: Ondansetron ODT TAB* [Zofran 4 MG Odt TAB*] 4 mg PO Q6H PRN #10 tab.odt PRN Reason: Nausea Patient Education Materials: Acute Diarrhea (ED) Referrals: Jesus Barron MD [Primary Care Provider] - Additional Instructions: FOLLOW UP WITH YOUR DOCTOR IF NOT COMPLETELY IMPROVED. IF THE STOOL CULTURES ARE NEGATIVE (NO BACTERIAL CAUSE), YOU CAN USE OVER THE COUNTER IMODIUM. GET REEVALUATED SOONER IF YOUR CONDITION WORSENS; ABDOMINAL PAIN, FEVER, DEHYDRATION, BLOOD IN YOUR STOOL, YOU FEEL ILL OR ANY QUESTIONS OR CONCERNS. - Billing Disposition and Condition Condition: STABLE Disposition: Home
--- NOTE | 2019-02-17 13:03 | ED ---
Progress - Progress Note Progress Note: Stool cultures negative. Per Dr. Farris's note, patient should follow up with PCP, was contacted by nurse to do so. Cultures negative, no change in treatment. -Gricelda White PAC Course/Dx - Diagnoses Provider Diagnoses: Diarrhea Discharge - Sign-Out/Discharge Documenting (check all that apply): Patient Departure All imaging exams completed and their final reports reviewed: No Studies - Discharge Plan Condition: Stable Disposition: HOME Prescriptions: Ondansetron ODT TAB* [Zofran 4 MG Odt TAB*] 4 mg PO Q6H PRN #10 tab.odt PRN Reason: Nausea Patient Education Materials: Acute Diarrhea (ED) Referrals: Jesus Barron MD [Primary Care Provider] - Additional Instructions: FOLLOW UP WITH YOUR DOCTOR IF NOT COMPLETELY IMPROVED. IF THE STOOL CULTURES ARE NEGATIVE (NO BACTERIAL CAUSE), YOU CAN USE OVER THE COUNTER IMODIUM. GET REEVALUATED SOONER IF YOUR CONDITION WORSENS; ABDOMINAL PAIN, FEVER, DEHYDRATION, BLOOD IN YOUR STOOL, YOU FEEL ILL OR ANY QUESTIONS OR CONCERNS. - Billing Disposition and Condition Condition: STABLE Disposition: Home
== END 2019-02-14 11:05 | disposition home or self-care (01) ==
LOC: UCEAST 10:16
DX: R19.7 Diarrhea, unspecified (principal); R11.0 Nausea; R53.83 Other fatigue; Z88.5 Allergy status to narcotic agent
CPT/HCPCS: 82272; 83630; 87045; 87046; 87077; 87328; 87329; 87493; 87899; 99212; G0463

== ENCOUNTER → 2019-02-21 07:17 | Emergency (ER) | payer OTHER ==
--- NOTE | 2019-02-21 07:51 | ED ---
Abdominal Pain/Female - HPI Summary HPI Summary: Patient is a 33-year-old female who presents emergency department for lower abdominal pain that started acutely upon awakening today. Patient states she woke up today with severe right lower sharp abdominal pain. She states she took 4 ibuprofen and pain has improved. She does note she is having her normal menstrual cycle with typically does not get cramps this painful. She denies fever, chills, recent upper respiratory symptoms, urinary symptoms, vomiting diarrhea constipation. Patient was seen in urgent care loss of diarrhea but states her symptoms have resolved. Surgical history of 3. Patient also notes is a history of kidney stones and ovarian cysts. Symptoms are moderate in severity. No current modifying factors. - History of Current Complaint Chief Complaint: EDAbdPain Stated Complaint: ABD PAIN/RT SIDE PER PT Time Seen by Provider: 02/21/19 07:49 Hx Obtained From: Patient Hx Last Menstrual Period: 2 weeks ago Pain Intensity: 8 Allergies/Adverse Reactions: Allergies Allergy/AdvReac Type Severity Reaction Status Date / Time morphine Allergy Severe Anaphylatic Verified 02/21/19 07:53 Shock hydromorphone Allergy Intermediate Rash Verified 02/21/19 07:53 PMH/Surg Hx/FS Hx/Imm Hx Previously Healthy: Yes Endocrine/Hematology History: Reports: Hx Anemia - history of anemia Denies: Hx Diabetes, Hx Thyroid Disease Cardiovascular History: Denies: Hx Hypertension, Hx Rheumatic Fever, Hx Valvular Heart Disease, Other Cardiovascular Problems/Disorders Respiratory History: Denies: Hx Asthma, Hx Chronic Obstructive Pulmonary Disease (COPD), Hx Pulmonary Edema, Hx Pulmonary Embolism, Hx Sleep Apnea, Other Respiratory Problems/Disorders GI History: Denies: Hx Gastroesophageal Reflux Disease, Hx Ulcer, Other GI Disorders History: Reports: Hx Kidney Stones - passed one 6 months ago-still has 5 stones - 3 in one 2 in the other, Other Problems/Disorders - -7.5 weeks-Blighted ovum Musculoskeletal History: Denies: Other Musculoskeletal History Sensory History: Reports: Hx Contacts or Glasses - glasses and contacts- will wear glasses day of surgery Denies: Hx Hearing Aid Opthamlomology History: Reports: Hx Contacts or Glasses - glasses and contacts- will wear glasses day of surgery Neurological History: Reports: Hx Migraine - history of - none recent Denies: Hx Headaches, Hx Nerve Disease, Hx Seizures, Other Neuro Impairments/ Disorders Psychiatric History: Reports: Hx Anxiety - history of - not recent, Hx Depression - history of - not recent, Other Psychiatric Issues/Disorders - migraine with aura - Surgical History Surgery Procedure, Year, and Place: 3 c-sections. Plate in jaw and rods in both femurs- age 17 - 3 leg surgeries- 1 jaw procedure. Orange teeth extractions Hx Anesthesia Reactions: Yes - Father told her they had a hard time waking up after leg surgery Infectious Disease History: No Infectious Disease History: Denies: Hx Clostridium Difficile, Hx Hepatitis, Hx Human Immunodeficiency Virus (HIV), Hx of Known/Suspected MRSA, Hx Shingles, Hx Tuberculosis, Hx Known/ Suspected VRE, Hx Known/Suspected VRSA, History Other Infectious Disease, Traveled Outside the [place] in Last 30 Days - Family History Known Family History: Negative: Renal Disease, Respiratory Disease, Seizure Disorder - Social History Occupation: Employed Full-time Lives: With Family Alcohol Use: None Substance Use Type: Reports: None Smoking Status (MU): Never Smoked Tobacco Review of Systems Constitutional: Negative Negative: Fever, Chills ENT: Negative Cardiovascular: Negative Respiratory: Negative Negative: Shortness Of Breath, Cough Positive: Abdominal Pain. Negative: Vomiting, Diarrhea, Nausea Positive: other - vaginal bleeding . Negative: burning, dysuria, discharge, flank pain, hematuria Neurological: Negative All Other Systems Reviewed And Are Negative: Yes Physical Exam Triage Information Reviewed: Yes Vital Signs On Initial Exam: Initial Vitals Temp Pulse Resp BP Pulse Ox 97.8 F 68 16 106/72 100 02/21/19 07:21 02/21/19 07:21 02/21/19 07:21 02/21/19 07:21 02/21/19 07:21 Vital Signs Reviewed: Yes Appearance: Positive: Well-Appearing - Pt. sitting on in NAD. Skin: Positive: Warm, Dry Head/Face: Positive: Normal Head/Face Inspection Eyes: Positive: Normal, EOMI Neck: Positive: Supple Respiratory/Lung Sounds: Positive: Clear to Auscultation, Breath Sounds Present. Negative: Rales, Rhonchi, Wheezes Cardiovascular: Positive: Normal, RRR Abdomen Description: Positive: Other: - Abd. is soft with mild diffuse tender throughout. No rebound tenderness or guarding.. Negative: CVA Tenderness (R), CVA Tenderness (L) Neurological: Positive: Normal, CN Intact II-III Psychiatric: Positive: Affect/Mood Appropriate Diagnostics - Vital Signs Vital Signs Temp Pulse Resp BP Pulse Ox 02/21/19 07:21 97.8 F 68 16 106/72 100 - Laboratory Result Diagrams: 02/21/19 08:41 02/21/19 08:41 Lab Statement: Any lab studies that have been ordered have been reviewed, and results considered in the medical decision making process. Abdominal Pain Fem Course/Dx - Course Course Of Treatment: Patient presenting for evaluation of right lower quadrant abdominal pain that is improving. She is afebrile. Has benign abdominal exam and mild diffuse tenderness without focal pain. Given history of urolithiasis and ovarian cysts. Patient could be passing a stone or have an ovarian cyst. Etiology could be dysmenorrhea as well. Do not suspect appendicitis. We'll obtain ultrasound of kidney to evaluate for hydronephrosis as well as ovary. Basic labs ordered. Patient declines pain medication at this time. Labs and urinalysis unremarkable. U/Ss are negative for acute findings per radiology. On re-exam pt. resting comfortably with minimal pain. Results discussed. Will dc home. TO continue motrin for pain as directed. Apply warm compresses. F.u with PCP if pain persist. To return to ER for CT scan for increased pain, localized RLQ pain, vomiting, fever or if concerned. Pt. understands and agrees with plan. - Diagnoses Differential Diagnosis: Positive: Appendicitis, Bowel Obstruction, Constipation , Ectopic , Pelvic Inflammatory Disease, Renal Colic, Urinary Tract Infection Provider Diagnoses: Acute abdominal pain, Dysmenorrhea Discharge - Sign-Out/Discharge Documenting (check all that apply): Patient Departure Patient Received Moderate/Deep Sedation with Procedure: No - Discharge Plan Condition: Improved Disposition: HOME Patient Education Materials: Dysmenorrhea (ED), Acute Abdominal Pain (ED) Referrals: Jesus Barron MD [Primary Care Provider] - Additional Instructions: Follow up with your PCP if pain persist Continue ibuprofen for pain as directed Apply warm compresses to lower abdomen Return to ER for increased pain, fever, vomiting or if concerned - Billing Disposition and Condition Condition: IMPROVED Disposition: Home
[2019-02-21 08:44] LABS: Urine Appearance Cloudy; Urine Bacteria Absent (Absent); Urine Bilirubin Negative (Negative); Urine Blood 2+ (Negative); Urine Color Yellow; Urine Glucose Negative (Negative); Urine Ketones Negative (Negative); Urine Nitrite Negative (Negative); Urine Protein Negative (Negative); Urine Red Blood Cell 3+(>10/hpf) (Absent); Urine Specific Gravity 1.018 (1.010-1.030); Urine Squamous Epithelial Cell Present (Absent); Urine Urobilinogen Negative (Negative); Urine White Blood Cell Absent (Absent)
[2019-02-21 08:52] LABS: ABS Basophils 0 10^3/ul (0-0.2); ABS Eosinophils 0.1 10^3/ul (0-0.6); ABS Lymphocytes 1.4 10^3/ul (1.0-4.8); ABS Monocytes 0.3 10^3/ul (0-0.8); ABS Nucleated RBC 0 10^3/ul; Eosinophil % 2.1 %; Hematocrit 35 % (33-41); Hemoglobin 11.8 g/dL (12.0-16.0); Lymphocyte % 29.2 %; Mean Corpuscular HGB Conc 34 g/dL (31-36); Mean Corpuscular Hemoglobin 31 pg (27-31); Mean Corpuscular Volume 92 fL (80-97); Mean Platelet Volume 10.2 fL (7.4-10.4); Nucleated Red Blood Cells % 0.1; Platelet Count 157 10^3/uL (150-450); Red Blood Count 3.77 10^6 /uL (3.70-4.87); Red Cell Distribution Width 12 % (10.5-15); White Blood Count 4.9 10^3/uL (3.5-10.8)
[2019-02-21 09:08] LABS: ALT 15 U/L (7-52); AST 16 U/L (13-39); Albumin 4.3 g/dL (3.2-5.2); Albumin/Globulin Ratio 1.7 (1-3); Alkaline Phosphatase 41 U/L (34-104); Anion Gap 4 mmol/L (2-11); BUN/Creatinine Ratio 28.8 (8-20); Blood Urea Nitrogen 15 mg/dL (6-24); C Reactive Protein < 1.00 mg/L (<8.01); CO2 Carbon Dioxide 29 mmol/L (22-32); Calcium 9.4 mg/dL (8.6-10.3); Chloride 105 mmol/L (101-111); EGFR African American 163.3 (>60); Globulin 2.6 g/dL (2-4); Glucose 97 mg/dL (70-100); Potassium 4.3 mmol/L (3.5-5.0); Sodium 138 mmol/L (135-145); Total Protein 6.9 g/dL (6.4-8.9)
[2019-02-21 09:14] LABS: HCG Pregnancy < 0.60 mIU/mL
[2019-02-21 11:41] VITALS: BP 95/70
== END | disposition home or self-care (01) ==
LOC: ED 07:17
DX: N94.6 Dysmenorrhea, unspecified (principal); Z88.5 Allergy status to narcotic agent
CPT/HCPCS: 36415; 76775; 76830; 80053; 81003; 81015; 84702; 85025; 86140; 99282

== ENCOUNTER 2019-11-13 06:04 | Inpatient (IN) | payer OTHER ==
--- OUTSIDE RECORDS SUMMARY | 2019-11-13 06:09 | XMS REPORT | Continuity of Care Document ---
:1985 External Reference #:[id number] Author Name Marco Tate M.D. Address [address] [place] [address] Care Team Providers Name Role Phone Jesus Barron M.D. 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 Previous uterine surgical scar Jojo Greenberg MD Onset: 05/27/2019 Dysuria Isabela Kruger CNM Onset: 05/27/2019 Social History Type Date Description Comments Sex Unknown Tobacco Use Start: Unknown Patient has never smoked Smoking Status Reviewed: 01/08/19 Patient has never smoked SHASTA: 12/22/2012 Estimated Date of Delivery Based on LMP Allergies, Adverse Reactions, Alerts Active Allergies Reaction Severity Comments Date Morphine 05/05/2008 Dilaudid 09/08/2008 Medications Active Medications SIG Qnty Indications Ordering Provider Date Ibuprofen take one tab by 30tabs Z01.818 Marco Tate, 11/10/2019 600mg Tablets mouth every 6 M.D. hours as needed pain Includes Dha Unknown Medications Administered in Office Medication SIG Qnty Indications Ordering Provider Date PT SCRN Tbco Id as Non User Marco Tate M.D. 11/10/2019 Injection PT SCRN Tbco Id as Non User Lolis Gomez MD 01/08/2019 Injection PT SCRN Tbco Id as Non User Samantha Crowley MD 12/09/2018 Injection PT SCRN Tbco Id as Non User Jojo Greenberg MD 12/02/2018 Injection PT SCRN Tbco Id as Non User Jessenia Fox, CN 10/03/2018 Injection PT SCRN Tbco Id as Non User Jessenia Fox, TANVI 09/05/2018 Injection PT SCRN Tbco Id as Non User Samantha Crowley MD 08/13/2018 Injection No PT Tbco SCRN RNG IMELDA Meneses 07/25/2018 Injection PT SCRN Tbco Id as Non User IMELDA eMneses 07/25/2018 Injection Immunizations CPT Code Status Date Vaccine Lot # [id number] Given 09/10/2019 Tetnus, Diptheria Toxoids And Acellular Pertussis, [id number] PT > 7Yrs Old 24242 Given 08/06/2019 Influenza Vaccine Quadrivalent Preser/Antibiotic [id number] Free Im Use 91381 Given 08/23/2016 Influenza Virus Vaccine, Quadrivalent, Split, [id number] Preservative Free [id number] Given 06/19/2016 Tetnus, Diptheria Toxoids And Acellular Pertussis, [id number] PT > 7Yrs Old Vital Signs Date Vital Result Comment 04/15/2019 1:33pm BP Systolic 124 mmHg BP Diastolic 62 mmHg Height 61.5 inches 5'1.50" Weight 126.00 lb BMI (Body Mass Index) 23.4 kg/m2 Last Menstrual Period 9558647 11 Parity 3 01/08/2019 3:21pm BP Systolic 114 mmHg BP Diastolic 60 mmHg Height 61.5 inches 5'1.50" Weight 127.00 lb BMI (Body Mass Index) 23.6 kg/m2 Last Menstrual Period 8365693 10 Parity 3 Results Test Acquired Date Facility Test Result H/L Range Note Laboratory test 10/27/2019 [facility] Genital For SEE RESULT [address] [place] [address] GRP B Strep BELOW [phone] Only Laboratory test 08/26/2019 [facility] Glucose 1 HR 100 mg/dL Normal 70-160 [address] [place] [address] Post Prandial [phone] CBC With No 08/26/2019 [facility] White Blood 8.9 Normal 3.5- 10[place]8 [place] [address] Count 10^3/uL [phone] Red Blood Count 3.62 10^6/uL Low 3.70-4.87 Hemoglobin 11.7 g/dL Low 12.0-16.0 Hematocrit 36 % Normal 35-47 Mean Corpuscular Volume 99 fL High 80-97 Mean Corpuscular Hemoglobin 32 pg High 27-31 Mean Corpuscular HGB Conc 33 g/dL Normal 31-36 Red Cell Distribution Width 14 % Normal 10-15 Platelet Count 150 10^3/uL Normal 150-450 Mean Platelet Volume 11.1 fL High 7.4-10.4 Liver Function 07/26/2019 [facility] Total Protein 6.1 g/dL Low 6.4-8.9 Panel [address] [place] [address] [phone] Albumin 3.6 g/dL Normal 3.2-5.2 Globulin 2.5 g/dL Normal 2-4 Albumin/Globulin Ratio 1.4 Normal 1-3 Total Bilirubin 0.70 mg/dL Normal 0.2-1.0 Direct Bilirubin 0.10 mg/dL Normal 0.03-0.18 Indirect Bilirubin 0.6 mg/dL Normal 0.3-1.0 Alkaline Phosphatase 56 U/L Normal 34-104 Alt 25 U/L Normal 7-52 Ast 18 U/L Normal 13-39 Laboratory test 07/26/2019 [facility] Bile Acid 3 mcmol/L < =10 3 finding [address] [place] [address] [phone] Maternal Serum 06/03/2019 [facility] Interpretation SEE NOTE 4 Afp Risk For NTD (Osb) LESS THAN 1:5000 5 Afp,Serum 24.2 NG/ML Adjusted Mom 0.71 6 Comment SEE NOTE 7 Date Of 1985 SHASTA 11/22/2019 SHASTA Determined By ULTRASOUND Gestational Age 15.4 WEEKS Weight 126 LBS Race =W Insulin Dependent Diabetic NO Cigarette Smoker NO Repeat Sample NO Number Of Fetuses 1 History Of NTD NO Date Of Draw 06/03/2019 [employer] Equipment [employer] SEE NOTE 8 1 SEE RESULT BELOW Name: MERCED BAUER : [address]: Marco Tate MD Acct: [id number] Unit: [id number] AGE: 34 Location: [facility] Re10/27/19 SEX: F Status: REG REF SPEC: [id number] PERRI: 10/27/19-[address] [facility] [address]: Marco Tate MD REQ: [id number] RECD: 10/27/19 STATUS: COMP _ SOURCE: CER/VAG/RE SPDESC: ORDERED: Grp B Strp Scrn COMMENTS: [id number] QUERIES: Is Patient Penicillin Allergic? N Is patient penicillin allergic and/or sensitivities needed? N Provider Requisition # C77#[id number]_ Procedure Result Reported Site Group B Strep Culture Screen Final 10/29/19- 1148 ML Group B Strep Screen Negative * - Main Lab . END OF REPORT DEPARTMENT OF PATHOLOGY, [address] [place] [address] Sean Tapia M.D. Director [facility] # [id number] 2 [id number] Test Performed by: [address] [address] [employer] Cl[employer]: Lorne Reed M.D. Ph.D.; CLIA# [id number] 4 SCREEN NEGATIVE FOR OPEN NTD. 5 LESS THAN 1:5000 6 ADJUSTED AFP MOM INTERPRETIVE CUTOFFS: <2.50 ADJUSTED MOM <1.90 ADJUSTED MOM FOR INSULIN-DEPENDENT DIABETES <4.00 ADJUSTED MOM FOR TWINS <3.50 ADJUSTED MOM FOR TWINS INSULIN-DEPENDENT DIABETES <4.50 ADJUSTED MOM FOR TRIPLETS <4.00 ADJUSTED MOM FOR TRIPLETS INSULIN-DEPENDENT DIABETES 7 THE AFP TEST RESULT INDICATES THAT THIS PATIENT IS SCREEN NEGATIVE FOR OPEN NTD. IT SHOULD BE NOTED THAT NORMAL TEST RESULTS CAN NEVER GUARANTEE THE OF A NORMAL BABY AND THAT 2-3% OF [place] HAVE SOME TYPE OF PHYSICAL OR MENTAL DEFECT, MANY OF WHICH ARE UNDETECTABLE THROUGH ANY KNOWN DIAGNOSTIC TECHNIQUE. THE SINGLE AFP MARKER IS NOT RECOMMENDED FOR DOWN SYNDROME AND OTHER CHROMOSOMAL ABNORMALITIES SCREENING. MUCH GREATER SENSITIVITY IS ACHIEVED WITH MULTIPLE MARKERS, SUCH AFP, HCG, UNCONJUGATED ESTRIOL, AND/OR DIMERIC INHIBIN A. WHILE WOMEN 35 YEARS OR OLDER AT THE TIME OF DELIVERY HAVE THE HIGHEST RISK OF HAVING A CHILD WITH DOWN SYNDROME, CURRENT [employer] GUIDELINES (FINANCIAL PLANNING ADVISOR 2007 V109 [id number] RECOMMEND THAT "MATERNAL AGE ALONE NO LONGER BE USED A CUT-OFF TO DETERMINE WHO IS OFFERED SCREENING VERSUS WHO IS OFFERED INVASIVE TESTING." GENETIC COUNCELING MAY BE CONSIDERED. THIS IS A SCREENING TEST, NOT A DIAGNOSTIC TEST. THIS RISK ASSESSMENT REPORT IS BASED IN PART ON DEMOGRAPHIC DATA PROVIDED BY THE ORDERING PHYSICIAN. PLEASE NOTIFY THE LAB PROMPTLY IF ANY DATA IS INCORRECT. FOR ASSISTANCE WITH RECALCULATIONS, PLEASE CALL YOUR LOCAL [facility] AT . FOR ASSISTANCE WITH INTERPRETATION OF THESE RESULTS, PLEASE CALL [phone]. 0 --- Reviewed by: Biju Busby MD Procedures Date Code Description Status 07/04/2019 77368 Echography Uterus Complete Completed Medical Devices Description No Information Available Encounters Type Date Location Provider Dx Diagnosis Office Visit 11/10/2019 [facility] Office Marco Tate, Z01.818 Encounter for other 2:40p [facility]yer preprocedural examination Assessments Date Code Description Provider 11/10/2019 Z01.818 Encounter for other preprocedural Marco Tate M.D. examination 11/03/2019 Z34.83 Encounter for supervision of other normal Marco Tate M.D. , third trimester 10/27/2019 Z34.83 Encounter for supervision of other normal Marco Tate M.D. , third trimester 10/20/2019 O34.211 Maternal care for low transverse scar from Jojo Greenberg MD previous delivery 10/08/2019 Z34.83 Encounter for supervision of other normal Marco Tate M.D. , third trimester 09/24/2019 O34.211 Maternal care for low transverse scar from Luis Fontenot JR, DO previous delivery 09/10/2019 O34.211 Maternal care for low transverse scar from Marco Tate M.D. previous delivery 09/10/2019 Z23 Encounter for immunization Marco Tate M.D. 08/26/2019 Z36.9 Encounter for screening, Jojo Greenberg MD unspecified 08/26/2019 O34.211 Maternal care for low transverse scar from Luis Fontenot JR DO previous delivery 08/26/2019 Z36.9 Encounter for screening, Laboratory unspecified 08/06/2019 Z23 Encounter for immunization Marco Tate M.D. 08/06/2019 Z36.9 Encounter for screening, Marco Tate M.D. unspecified 07/04/2019 O34.211 Maternal care for low transverse scar from Luis Fontenot JR, DO previous delivery 07/04/2019 Z36.3 Encounter for screening for Luis Fontenot JR, DO malformations 07/04/2019 Z36.3 Encounter for screening for Ultrasounds malformations 06/03/2019 Z36.9 Encounter for screening, Marco Tate M.D. unspecified 06/03/2019 O34.211 Maternal care for low transverse scar from Jojo Greenberg MD previous delivery 06/03/2019 Z36.9 Encounter for screening, Laboratory unspecified 06/03/2019 O09.522 Supervision of elderly multigravida, second Jojo Greenberg MD trimester Plan of Treatment Future Appointment(s):12/17/2019 1:20 pm - Marco Tate M.D. at [facility]11/24/2019 11:00 am - Jessenia Fox CNM at [facility]11/17/2019 7:45 am - Luis Fontenot JR, DO at [facility] 11/17/2019 7:45 am - Marco Tate M.D. at [facility] R03 - Lolis Gomez MDO02.1 Missed Functional Status Description No Information Available Mental Status Description No Information Available Referrals Description No Information Available
--- OUTSIDE RECORDS SUMMARY | 2019-11-13 06:10 | XMS REPORT ---
:1985 Author Organization [facility] Care Team Providers Name Role Phone Unavailable Unavailable Unavailable Problems Condition Condition Condition Status Onset Resolution Last Treating Comments Name Details Category Date Date Treatment Clinician Date Diagnosis Active [place] care for care for [place] patient patient with with recurrent recurrent loss, loss, second second trimester trimester Allergies, Adverse Reactions, Alerts Allergy Allergy Status Severity Reaction(s) Onset Inactive Treating Comments Name Type Date Date Clinician Unknown None Active Unknown None Unknown No Known Allergies For This Patient Medications Ordered Filled Start Stop Current Ordering Indication Dosage Frequency Signature Comments Components Medication Medication Date Date Medication? Clinician (SIG) Name Name No Known No Known No None None None Medications Medications For This For This Patient Patient Procedures This patient has no known procedures. Results This patient has no known results.
--- OUTSIDE RECORDS SUMMARY | 2019-11-13 06:10 | XMS REPORT ---
:1985 Author Organization [facility] Care Team Providers Name Role Phone JAMIE CASTAÑEDA Primary Care Physician Unavailable Allergies, Adverse Reactions, Alerts Allergy Code CodeSystem Reaction Severity Criticality Status Start Substance Date morphine Anaphylaxis Moderate Active 2019-03 sulfate - Dilaudid unspecified Moderate Active 2019-03 Medications Medication Medication Medication Start Stop Route Dose Status Fill Code CodeSystem Date Date Instructions RxNorm 2019-03 oral 27 mg active Take 1 tablet Vitamin -26 iron- by mouth once 800 mcg a day as 1 tablet directed once a day Relevant diagnostic tests/laboratory data Narrative No Information Procedures Procedure Code CodeSystem Target Date of Status Service Device Device Device Name Site Procedure Delivery Code Name UID Location SNOMED-CT () 2019-10-[address], [address] [id number] SNOMED-CT () 2019-09-[address], [address] [id number] Encounters/Encounter Diagnoses Encounter Encounter Diagnosis Diagnosis Diagnosis Date of Service Name Code Code Name CodeSystem Diagnosis Delivery Location Nursing T1030 SNOMED-CT 2019-10-06 [facility] [place] [facility] [address] [place] [address], [address] Vital Signs No Information Social History Element Description Description Start End Code CodeSystem AdditionalInfo Date Date SexAssignedAtBirth Female 1984-0 F AdministrativeGender 04-23 Hospital Discharge Instructions Reason For Referral Medical Equipment FDA Assessments
--- OUTSIDE RECORDS SUMMARY | 2019-11-13 06:10 | XMS REPORT ---
:1985 Author Organization [facility] Care Team Providers Name Role Phone Unavailable Unavailable Unavailable Problems Condition Condition Condition Status Onset Resolution Last Treating Comments Name Details Category Date Date Treatment Clinician Date Diagnosis Active Unknown care for care for patient patient with with recurrent recurrent loss, [...]
--- OUTSIDE RECORDS SUMMARY | 2019-11-13 06:10 | XMS REPORT ---
:1985 Author Organization [facility] Care Team Providers Name Role Phone Unavailable Unavailable Unavailable Problems Condition Condition Condition Status Onset Resolution Last Treating Comments Name Details Category Date Date Treatment Clinician Date Diagnosis Active [place] care for care for 6- Deng patient patient with with recurrent recurrent loss, first loss, first trimester trimester Diagnosis Active [place] care for care for 9-13 Deng patient patient with with recurrent recurrent loss, [...]
--- OUTSIDE RECORDS SUMMARY | 2019-11-13 06:10 | XMS REPORT ---
:1985 Author Organization [facility] Care Team Providers Name Role [...]
--- OUTSIDE RECORDS SUMMARY | 2019-11-13 06:10 | XMS REPORT ---
:1985 Author Organization [facility] Care Team Providers Name Role Phone Unavailable Unavailable Unavailable Problems Condition Condition Condition Status Onset Resolution Last Treating Comments Name Details Category Date Date Treatment Clinician Date Diagnosis Active [place] care for care for 6- Deng patient patient with with recurrent recurrent loss, first loss, first trimester trimester Diagnosis Active [place] care for care for 9-13 Deng patient [...]
[2019-11-13] MEDS ORDERED: ceFOXitin 2 GM IVPREMIX* 0 GM/0 ML BAG ONE (06:37)
[2019-11-13] MEDS ORDERED: ceFOXitin 2 GM IVPREMIX* 2 GM/50 ML BAG ONE (06:46)
[2019-11-13] MEDS ORDERED: Sodium Citrate/Citric Acid* 15 ML UDC ONE (06:47)
[2019-11-13] MEDS ORDERED: Bupivacaine 0.5% SDV PF* 30ML VIAL ONE (08:39)
[2019-11-13] MEDS ORDERED: Ketorolac INJ* 30 MG/ML 1 ML VIAL ONE (09:06)
[2019-11-13] MEDS ORDERED: Ondansetron INJ* 2 MG/ML VIAL ONE (09:06)
[2019-11-13] MEDS ORDERED: OXYTOCIN* 10 UNITS/ML 1 ML VIAL ONE (09:06)
[2019-11-13] MEDS ORDERED: diPHENhydraMINE IV* 50 MG/ML 1 ml VIAL (BENADRYL) ONE (09:06)
[2019-11-13] MEDS ORDERED: fentaNYL* 50 MCG/ML 2 ML VIAL (100 MCG VIAL) ONE (09:07)
[2019-11-13] MEDS ORDERED: Acetaminophen IV 1GM/100ML * 100 ML ONE (09:12)
[2019-11-13] MEDS ORDERED: Buffered Lidocaine 1% SYRIN* 1 ML/SYRINGE INTRADERM ONE (09:17)
[2019-11-13] MEDS ORDERED: Sodium Citrate/Citric Acid* 15 ML UDC PO ONE (09:17)
[2019-11-13] MEDS ORDERED: DiMENhydriNATE IV* 50 MG/ML VIAL IV PUSH PRN (09:21)
[2019-11-13] MEDS ORDERED: Ondansetron INJ* 2 MG/ML VIAL IV PRN (09:21)
[2019-11-13] MEDS ORDERED: diPHENhydraMINE IV* 50 MG/ML 1 ml VIAL (BENADRYL) IV PRN (09:21)
[2019-11-13] MEDS ORDERED: Naloxone* 0.4 MG/ML 1 ML VIAL IV PRN (09:21)
[2019-11-13] MEDS ORDERED: oxyCODONE/Acetamin 5/325 MG* TAB PO PRN (09:21)
[2019-11-13] MEDS ORDERED: Scopolamine 1.5 mg* PATCH TRANSDERM PRN (09:21)
[2019-11-13] MEDS ORDERED: Witch Hazel PAD* JAR TOPICAL PRN (09:36)
[2019-11-13] MEDS ORDERED: Glycerin ADULT SUPP PR PRN (09:36)
[2019-11-13] MEDS ORDERED: Zolpidem TAB* 5 MG PO PRN (09:36)
[2019-11-13] MEDS ORDERED: Lactated Ringers 1000 ML Bag* 1,000 ML IV SCH ×2 (10:00)
[2019-11-13] MEDS: Ketorolac INJ* 30 MG/ML 1 ML VIAL IV PUSH SCH ×2 (10:20→14:40)
[2019-11-13] MEDS: fentaNYL* 50 MCG/ML 2 ML VIAL (100 MCG VIAL) IV PRN ×2 (10:24→10:42)
[2019-11-13 10:50] LABS: Urine Benzodiazepine Screen None Detected (None Detect); Urine Opiates Screen None Detected (None Detect)
[2019-11-13] MEDS: Simethicone TAB* 80 MG TAB.CHEW PO SCH ×3 (14:41→21:02)
[2019-11-13] MEDS: Docusate CAP* 100 MG PO SCH ×2 (14:41→21:02)
[2019-11-13] MEDS: oxyCODONE TAB* 5 MG TAB PO PRN ×3 (14:41→22:29)
[2019-11-13] MEDS: Acetaminophen TAB* 325 MG PO PRN ×2 (17:32→22:29)
[2019-11-13] MEDS ORDERED: Ibuprofen TAB* 600 MG ONE (21:01)
[2019-11-13] MEDS: Ibuprofen TAB* 600 MG PO PRN (21:02)
--- NOTE | 2019-11-14 00:05 | OP ---
DATE OF OPERATION: 11/13/19 - ROOM #117 DATE OF : 83 SURGEON: Marco Tate MD RAILROAD CAR PAINTER: Dr. Crowley. ANESTHESIA: Spinal. PRE-OP DIAGNOSES: Previous section, cholestasis of , and desires permanent sterilization. POST-OP DIAGNOSES: Previous section, cholestasis of , and desires permanent sterilization. OPERATIVE PROCEDURE: Low transverse section and bilateral tubal ligation. ESTIMATED BLOOD LOSS: 600 cc. SPECIMEN: Includes both fallopian tubes and placenta. FINDINGS: This is a 34-year-old 4, para 3, who was scheduled for a section on Sunday at 39 plus 2 weeks. She called with itching 2 days prior to admission and P33 and bile acids were drawn. The P33 showed elevated liver enzymes and she had a history of cholestasis, so the clinical diagnosis of cholestasis with was diagnosed and because of this, the decision was made to move up her to 38 plus 5. At the time of , she had a viable female, Apgars 9 and 9, weight was 7 pounds 6 ounces. Both fallopian tubes and ovaries all appeared normal. DESCRIPTION OF PROCEDURE: The patient was identified, procedure identified as a low transverse section. The patient was taken to the operating room, prepped and draped in the usual fashion in the left lateral recumbent position under spinal anesthesia. A Pfannenstiel incision was made through the old incision, carried down through fat, fascia and peritoneum. A transverse incision was made in the lower uterine segment, extended laterally using blunt dissection. The above infant was delivered through the incision with ease. The cord was doubly clamped and cut, and the was handed to the awaiting installer inspector final. Cord blood was obtained. Placenta delivered manually. The uterus was wiped out with a wet lap sponge. The uterine incision was then closed using 0 Polysorb in a running fashion. A second layer was used to imbricate the first layer. Good hemostasis was verified. The right fallopian tube was grasped at its mid portion followed out to its fimbriated end. The [place] was used to cross clamp the fimbria and 2-0 Polysorb ties were placed and the fimbria was excised. Same procedure was carried out on the left after following out to its fimbriated end, Good hemostasis was verified. The uterus was placed back into the abdominal cavity. The incision was inspected and found to be hemostatic. The fallopian tube sites were also inspected and found to be hemostatic. The peritoneum was then closed using 3-0 Polysorb in a running fashion. Good hemostasis achieved in the subrectus layers. The fascia was closed using 0 Polysorb in a running fashion. Good hemostasis achieved in the subcu. Copious irrigation was utilized and suctioned out and the skin was closed with 4-0 Monocryl in a subcuticular fashion. All sponge and instrument counts were correct and the patient returned to the recovery room in a stable condition. [id number]/[facility] #: [id number] JODI
[2019-11-14] MEDS: Ibuprofen TAB* 600 MG PO PRN ×4 (05:36→23:59)
[2019-11-14] MEDS: Acetaminophen TAB* 325 MG PO PRN ×4 (06:47→19:27)
[2019-11-14] MEDS: oxyCODONE TAB* 5 MG TAB PO PRN ×4 (06:47→19:27)
[2019-11-14 06:48] LABS: ABS Eosinophils 0.1 10^3/ul (0-0.6); ABS Lymphocytes 1.6 10^3/ul (1.0-4.8); ABS Monocytes 0.5 10^3/ul (0-0.8); ABS Neutrophils 4.4 10^3/ul (1.5-7.7); Eosinophil % 1.6 %; Hematocrit 30 % (35-47); Hemoglobin 10.2 g/dL (12.0-16.0); Lymphocyte % 23.7 %; Mean Corpuscular HGB Conc 35 g/dL (31-36); Mean Corpuscular Hemoglobin 32 pg (27-31); Mean Corpuscular Volume 93 fL (80-97); Mean Platelet Volume 10.4 fL (7.4-10.4); Platelet Count 116 10^3/uL (150-450); Red Blood Count 3.16 10^6 /uL (3.70-4.87); Red Cell Distribution Width 14 % (10-15); White Blood Count 6.6 10^3/uL (3.5-10.8)
[2019-11-14] MEDS: Simethicone TAB* 80 MG TAB.CHEW PO SCH ×4 (06:48→21:00)
[2019-11-14] MEDS ORDERED: Ferrous Gluconate TAB* 324 MG TAB PO SCH (09:00)
[2019-11-14] MEDS: Docusate CAP* 100 MG PO SCH ×3 (10:44→19:26)
[2019-11-15] MEDS: Ibuprofen TAB* 600 MG PO PRN ×3 (06:25→18:35)
[2019-11-15] MEDS: Acetaminophen TAB* 325 MG PO PRN ×4 (08:21→21:57)
[2019-11-15] MEDS: Simethicone TAB* 80 MG TAB.CHEW PO SCH ×4 (08:22→20:44)
[2019-11-15] MEDS: Docusate CAP* 100 MG PO SCH ×3 (08:22→20:44)
[2019-11-16] MEDS: Ibuprofen TAB* 600 MG PO PRN ×2 (00:23→06:21)
[2019-11-16] MEDS: Acetaminophen TAB* 325 MG PO PRN ×2 (04:19→08:25)
[2019-11-16 07:23] VITALS: BP 132/68
[2019-11-16] MEDS: Docusate CAP* 100 MG PO SCH (08:25)
[2019-11-16] MEDS: Simethicone TAB* 80 MG TAB.CHEW PO SCH (08:25)
[2019-11-16] MEDS ORDERED: Scopolamine PATCH Remove* 1 NOTE MISC PATCH OFF ONE (09:21)
== END 2019-11-16 10:51 | disposition home or self-care (01) | DRG 540 ==
LOC: MCHOB 06:04
PROVIDERS: ADMIT Obstetrics & Gynecology; ATTEND Obstetrics & Gynecology
PROC: 4A1HXCZ Monitoring of Products of Conception, Cardiac Rate, External Approach (ICD-10-PCS; 2019-11-13)
PROC: 0UB70ZZ Excision of Bilateral Fallopian Tubes, Open Approach (ICD-10-PCS; 2019-11-13)
PROC: 10D00Z1 Extraction of Products of Conception, Low, Open Approach (ICD-10-PCS; principal; 2019-11-13 07:45)
DX: O26.62 Liver and biliary tract disorders in childbirth (principal); K83.1 Obstruction of bile duct; O99.12 Other diseases of the blood and blood-forming organs and certain disorders involving the immune mechanism complicating childbirth; O34.211 Maternal care for low transverse scar from previous cesarean delivery; D69.6 Thrombocytopenia, unspecified; Z3A.38 38 weeks gestation of pregnancy; Z37.0 Single live birth; Z30.2 Encounter for sterilization; Z88.5 Allergy status to narcotic agent
CPT/HCPCS: 36415; 80307; 85025; 88302; A9270-GY; J0694; J1200; J1885; J2405; J2590; J3010; J3490

== ENCOUNTER → 2019-12-03 17:50 | Emergency (ER) | payer OTHER ==
--- OUTSIDE RECORDS SUMMARY | 2019-12-03 18:49 | XMS REPORT | Continuity of Care Document ---
:1985 External Reference #:[id number] Author Name Marco Tate M.D. Address [address] [place] [address] Care Team Providers Name Role Phone Jesus Barron M.D. - Family Care Team Information Case Management Rn [phone] Medicine Cain Pompa - Medical Oncology Care Team Information Case Management Rn Problems Active Problems Provider Date Disorder of [...] Id as Non User Jessenia Fox, TANVI 10/03/2018 Injection PT SCRN Tbco Id as Non User Jessenia Fox, TANVI 09/05/2018 Injection PT SCRN Tbco Id as Non User Samantha Crowley MD 08/13/2018 Injection No PT Tbco SCRN RNG IMELDA Meneses 07/25/2018 Injection PT SCRN Tbco Id as Non User IMELDA Meneses 07/25/2018 Injection Immunizations CPT Code Status Date Vaccine Lot # [id number] Given 09/10/2019 Tetnus, Diptheria Toxoids And Acellular Pertussis, [id number] PT > 7Yrs Old 92598 Given 08/06/2019 Influenza Vaccine Quadrivalent Preser/Antibiotic [id number] Free Im Use 75556 Given 08/23/2016 Influenza Virus Vaccine, Quadrivalent, Split, [id number] Preservative Free 73998 Given 06/19/2016 Tetnus, Diptheria Toxoids And Acellular Pertussis, [id number] PT > 7Yrs Old Vital Signs Date Vital Result Comment 11/20/2019 2:53pm BP Systolic 112 mmHg BP Diastolic 68 mmHg Body Temperature 98.1 F Height 61.5 inches 5'1.50" Weight 160.00 lb BMI (Body Mass Index) 29.7 kg/m2 Last Menstrual Period 8100830 11 Parity 4 04/15/2019 1:33pm BP Systolic 124 mmHg BP Diastolic 62 mmHg Height 61.5 inches 5'1.50" Weight 126.00 lb BMI (Body Mass Index) 23.4 kg/m2 Last Menstrual Period 0044188 11 Parity 3 Results Test Acquired Date Facility Test Result H/L Range Note CBC Auto 11/26/2019 [facility] White Blood 6.6 10^3/uL Normal 3.5-10.8 [place] [address] Count [phone] Red Blood Count 2.09 10^6/uL Low 3.70-4.87 Hemoglobin 6.7 g/dL Low 12.0-16.0 Hematocrit 19 % Low 35-47 Mean Corpuscular Volume 91 fL Normal 80-97 Mean Corpuscular Hemoglobin 32 pg High 27-31 Mean Corpuscular HGB Conc 36 g/dL Normal 31-36 Red Cell Distribution Width 13 % Normal 10-15 Platelet Count 172 10^3/uL Normal 150-450 Mean Platelet Volume 9.0 fL Normal 7.4-10.4 Abs Neutrophils 4.0 10^3/uL Normal 1.5-7.7 Abs Lymphocytes 2.1 10^3/uL Normal 1.0-4.8 Abs Monocytes 0.3 10^3/uL Normal 0-0.8 Abs Eosinophils 0.1 10^3/uL Normal 0-0.6 Abs Basophils 0.0 10^3/uL Normal 0-0.2 Abs Nucleated RBC 0.0 10^3/uL Granulocyte % 61.2 % Lymphocyte % 31.2 % Monocyte % 5.1 % Eosinophil % 2.1 % Basophil % 0.4 % Nucleated Red Blood Cells % 0.0 CBC Auto 11/26/2019 [facility] White Blood 7.4 10^3/uL Normal 3.5-10.8 [place] [address] Count [phone] Red Blood Count 2.11 10^6/uL Low 3.70-4.87 Hemoglobin 6.7 g/dL Low 12.0-16.0 Hematocrit 19 % Low 35-47 Mean Corpuscular Volume 91 fL Normal 80-97 Mean Corpuscular Hemoglobin 32 pg High 27-31 Mean Corpuscular HGB Conc 35 g/dL Normal 31-36 Red Cell Distribution Width 14 % Normal 10-15 Platelet Count 172 10^3/uL Normal 150-450 Mean Platelet Volume 9.0 fL Normal 7.4-10.4 Abs Neutrophils 4.8 10^3/uL Normal 1.5-7.7 Abs Lymphocytes 2.1 10^3/uL Normal 1.0-4.8 Abs Monocytes 0.4 10^3/uL Normal 0-0.8 Abs Eosinophils 0.1 10^3/uL Normal 0-0.6 Abs Basophils 0.0 10^3/uL Normal 0-0.2 Abs Nucleated RBC 0.0 10^3/uL Granulocyte % 64.4 % Lymphocyte % 28.4 % Monocyte % 5.1 % Eosinophil % 1.8 % Basophil % 0.3 % Nucleated Red Blood Cells % 0.0 CBC Auto 11/26/2019 [facility] White Blood 12.3 10^3/uL High 3.5-10.8 [place] [address] Count [phone] Red Blood Count 2.55 10^6/uL Low 3.70-4.87 Hemoglobin 8.0 g/dL Low 12.0-16.0 Hematocrit 23 % Low 35-47 Mean Corpuscular Volume 92 fL Normal 80-97 Mean Corpuscular Hemoglobin 31 pg Normal 27-31 Mean Corpuscular HGB Conc 34 g/dL Normal 31-36 Red Cell Distribution Width 14 % Normal 10-15 Platelet Count 222 10^3/uL Normal 150-450 Mean Platelet Volume 9.3 fL Normal 7.4-10.4 Abs Neutrophils 10.1 10^3/uL High 1.5-7.7 Abs Lymphocytes 1.6 10^3/uL Normal 1.0-4.8 Abs Monocytes 0.5 10^3/uL Normal 0-0.8 Abs Eosinophils 0.0 10^3/uL Normal 0-0.6 Abs Basophils 0.0 10^3/uL Normal 0-0.2 Abs Nucleated RBC 0.0 10^3/uL Granulocyte % 81.8 % Lymphocyte % 13.1 % Monocyte % 4.5 % Eosinophil % 0.4 % Basophil % 0.2 % Nucleated Red Blood Cells % 0.0 Laboratory test 11/13/2019 [facility] Surgical SEE RESULT 1 [place] [address] Pathology BELOW [phone] Type And Screen 11/12/2019 [facility] Patient [place] [address] Type [phone] Antibody Screen NEGATIVE CBC Auto 11/12/2019 [facility] White Blood 6.2 10^3/uL Normal 3.5-10.8 [place] [address] Count [phone] Red Blood Count 3.84 10^6/uL Normal 3.70-4.87 Hemoglobin 12.1 g/dL Normal 12.0-16.0 Hematocrit 36 % Normal 35-47 Mean Corpuscular Volume 93 fL Normal 80-97 Mean Corpuscular Hemoglobin 32 pg High 27-31 Mean Corpuscular HGB Conc 34 g/dL Normal 31-36 Red Cell Distribution Width 14 % Normal 10-15 Platelet Count 143 10^3/uL Low 150-450 Mean Platelet Volume 10.5 fL High 7.4-10.4 Abs Neutrophils 4.3 10^3/uL Normal 1.5-7.7 Abs Lymphocytes 1.4 10^3/uL Normal 1.0-4.8 Abs Monocytes 0.4 10^3/uL Normal 0-0.8 Abs Eosinophils 0.1 10^3/uL Normal 0-0.6 Abs Basophils 0.0 10^3/uL Normal 0-0.2 Abs Nucleated RBC 0.0 10^3/uL Granulocyte % 68.7 % Lymphocyte % 23.0 % Monocyte % 7.1 % Eosinophil % 1.0 % Basophil % 0.2 % Nucleated Red Blood Cells % 0.1 Comp Metabolic 11/11/2019 [facility] Sodium 138 mmol/L Normal 135-145 [place] [address] [phone] Potassium 3.7 mmol/L Normal 3.5-5.0 Chloride 106 mmol/L Normal 101-111 Co2 Carbon Dioxide 26 mmol/L Normal 22-32 Anion Gap 6 mmol/L Normal 2-11 Glucose 82 mg/dL Normal 70-100 Blood Urea Nitrogen 9 mg/dL Normal 6-24 Creatinine 0.47 mg/dL Low 0.51-0.95 BUN/Creatinine Ratio 19.1 Normal 8-20 Calcium 9.6 mg/dL Normal 8.6-10.3 Total Protein 6.0 g/dL Low 6.4-8.9 Albumin 3.5 g/dL Normal 3.2-5.2 Globulin 2.5 g/dL Normal 2-4 Albumin/Globulin Ratio 1.4 Normal 1-3 Total Bilirubin 1.20 mg/dL High 0.2-1.0 Alkaline Phosphatase 168 U/L High 34-104 Alt 194 U/L High 7-52 Ast 97 U/L High 13-39 Egfr Non- 150.8 >60 Egfr 182.5 >60 2 Laboratory 11/11/2019 [facility] Bile Acid 32 mcmol/L Abnormal <=10 3 [place] [address] [phone] Laboratory 10/27/2019 [facility] Genital For SEE RESULT 4 [place] [address] GRP B Strep BELOW [phone] Only Laboratory 08/26/2019 [facility] Glucose 1 HR 100 mg/dL Normal 70-160 5 [place] [address] Post [phone] Prandial CBC With No 08/26/2019 [facility] White Blood 8.9 10^3/uL Normal 3.5-10.8 [place] [address] Count [phone] Red Blood Count 3.62 10^6/uL Low 3.70-4.87 Hemoglobin 11.7 g/dL Low 12.0-16.0 Hematocrit 36 % Normal 35-47 Mean Corpuscular Volume 99 fL High 80-97 Mean Corpuscular Hemoglobin 32 pg High 27-31 Mean Corpuscular HGB Conc 33 g/dL Normal 31-36 Red Cell Distribution Width 14 % Normal 10-15 Platelet Count 150 10^3/uL Normal 150-450 Mean Platelet Volume 11.1 fL High 7.4-10.4 Liver Function 07/26/2019 [facility] Total Protein 6.1 g/dL Low 6.4-8.9 Panel [address] [place] [address] [phone] Albumin 3.6 g/dL Normal 3.2-5.2 Globulin 2.5 g/dL Normal 2-4 Albumin/Globulin Ratio 1.4 Normal 1-3 Total Bilirubin 0.70 mg/dL Normal 0.2-1.0 Direct Bilirubin 0.10 mg/dL Normal 0.03-0.18 Indirect Bilirubin 0.6 mg/dL Normal 0.3-1.0 Alkaline Phosphatase 56 U/L Normal 34-104 Alt 25 U/L Normal 7-52 Ast 18 U/L Normal 13-39 Laboratory test 07/26/2019 [facility] Bile Acid 3 mcmol/L < =10 6 finding [address] [place] [address] [phone] Maternal Serum 06/03/2019 [facility] Interpretation SEE NOTE 7 Afp Risk For NTD (Osb) LESS THAN 1:5000 8 Afp,Serum 24.2 NG/ML Adjusted Mom 0.71 9 Comment SEE NOTE 10 Date Of 1985 SHASTA 11/22/2019 SHASTA Determined By ULTRASOUND Gestational Age 15.4 WEEKS Weight 126 LBS Race =W Insulin Dependent Diabetic NO Cigarette Smoker NO Repeat Sample NO Number Of Fetuses 1 History Of NTD NO Date Of Draw 06/03/2019 Senior Storage Engineer SEE NOTE 11 1 SEE RESULT BELOW Name: MERCED BAUER : [address]: Marco Tate MD Acct: [id number] Unit: [id number] AGE: 34 [facility] [facility] Re11/13/19 SEX: F Status: ADM IN SPEC: [id number] PERRI: 11/13/[address] [facility] [address]: Marco Tate MD REQ: [id number] RECD: 11/13/19 STATUS: SOUT _ ORDERED: LEVEL 2 FINAL DIAGNOSIS Fallopian tubes, bilateral salpingectomies: -- Completely transected benign fimbriated fallopian tubes with no significant pathologic abnormalities. PRE-OPERATIVE DIAGNOSIS Tubal GROSS DESCRIPTION The specimen is received fresh with no source identified and a requisition labeled, Bilateral Tubes, and consists of two fimbriated fallopian tubes measuring 3.7 x 1.0 cm and 4.2 x 1.2 cm. The serosa is smooth to wrinkled francis-pink with a few focal paratubal cysts measuring up to 0.3 cm. The cut surface is unremarkable. The specimen is differentially inked and service center representative sections are submitted in one cassette. Signed by and Reported on: Alysia Wilcox MD 11/14/19 1450 END OF REPORT DEPARTMENT OF PATHOLOGY, [address] [place] [address] Sean Tapia M.D. Director JACOBO # [id number] Name: MERCED BAUER : [address]: Marco Tate MD Acct: [id number] Unit: [id number] AGE: 34 Location: [facility] 117-01 Re11/13/19 SEX: F Status: ADM IN Mother and Child Comparative Results Mother: MERCED BAUER [id number] ([id number]) Child: CHRISTINE,GIRL BABY [id number] ([id number]) Blood Bank Tests Collected Mother Result Abn Range Child Result Abn Range Patient Blood Type 11/13/19-0852 O Pos 2 Because ethnic data is not always readily [...] 15-29 5 Kidney failure <15 (or dialysis) 3 Test Performed by: [place] [id number] Manager Medicare: Lorne Reed M.D. Ph.D.; CLIA# [id number] 4 SEE RESULT BELOW Name: MERCED BAUER : [address]: Marco Tate MD Acct: [id number] Unit: [id number] AGE: 34 Location: [facility] Re10/27/19 SEX: F Status: REG REF SPEC: [id number] PERRI: 10/27/19-[address] [facility] [address]: Marco Tate MD REQ: [id number] RECD: 10/27/19 STATUS: COMP _ SOURCE: CER/VAG/RE SPDESC: ORDERED: Grp B Strp Scrn COMMENTS: [id number] QUERIES: Is Patient Penicillin Allergic? N Is patient penicillin allergic and/or sensitivities needed? N Provider Requisition # [id number]_ Procedure Result Reported Site Group B Strep Culture Screen Final 10/29/19- 1148 ML Group B Strep Screen Negative * ML - Main Lab . END OF REPORT DEPARTMENT OF PATHOLOGY, [address] [place] [address] Sean Tapia M.D. Director CLIA # [id number] 5 [id number] Test Performed by: [place] [address] Manager Medicare: Lorne Reed M.D. Ph.D.; CLIA# [id number] 7 SCREEN NEGATIVE FOR OPEN NTD. 8 LESS THAN 1:5000 9 ADJUSTED AFP MOM INTERPRETIVE CUTOFFS: <2.50 ADJUSTED MOM <1.90 ADJUSTED MOM FOR INSULIN-DEPENDENT DIABETES <4.00 ADJUSTED MOM FOR TWINS <3.50 ADJUSTED MOM FOR TWINS INSULIN-DEPENDENT DIABETES <4.50 ADJUSTED MOM FOR TRIPLETS <4.00 ADJUSTED MOM FOR TRIPLETS INSULIN-DEPENDENT DIABETES 10 THE AFP TEST RESULT INDICATES THAT THIS [...] HAVING A CHILD WITH DOWN SYNDROME, CURRENT [employer] OF [employer]STETR[employer] AND GYNECOLOG[employer] GUIDELINES ([place]STER[place] 2007 V109 [id number] RECOMMEND THAT "MATERNAL AGE ALONE NO LONGER [...] ASSISTANCE WITH RECALCULATIONS, PLEASE CALL YOUR LOCAL [facility] AT . FOR ASSISTANCE WITH INTERPRETATION OF THESE RESULTS, PLEASE CALL [phone]. 11 --- Reviewed by: Biju Busby MD Procedures Date Code Description Status 11/13/2019 13783 Delivery Only Completed 11/13/2019 73575 Delivery Only Completed 11/13/2019 40004 Delivery Routine Completed 11/13/2019 20462 Ligation/Transection Fallopian Tubes During Surgery Completed 07/04/2019 57250 Echography Uterus Complete Completed Medical Devices Description No Information Available Encounters Type Date Location Provider Dx Diagnosis Office Visit 11/10/2019 [facility] Marco Tate, Z01.818 Encounter for other 2:40p M.D. preprocedural examination Assessments Date Code Description Provider 11/27/2019 O72.2 Delayed and secondary hemorrhage Marco Tate M.D. 11/20/2019 Z09 Encounter for follow-up examination after Jessenia Fox CNM completed treatment for conditions other than malignant neoplasm 11/13/2019 O34.211 Maternal care for low transverse scar from Samantha Crowley MD previous delivery 11/13/2019 O34.211 Maternal care for low transverse scar from Marco Tate M.D. previous delivery 11/13/2019 O26.613 Liver and biliary tract disorders in Samantha Crowley MD , third trimester 11/13/2019 O26.613 Liver and biliary tract disorders in Marco Tate M.D. , third trimester 11/13/2019 Z30.2 Encounter for sterilization Samantha Crowley MD 11/13/2019 Z30.2 Encounter for sterilization Marco Tate M.D. 11/13/2019 Z38.01 Single liveborn , delivered by Samantha Crowley MD 11/13/2019 Z38.01 Single liveborn infant, delivered by Marco Tate M.D. 11/13/2019 Z39.0 Encounter for care and examination of Samantha Crowley MD mother immediately after delivery 11/13/2019 Z39.0 Encounter for care and examination of Marco Tate M.D. mother immediately after delivery 11/10/2019 Z01.818 Encounter for other preprocedural Marco [...] from Luis Fontenot JR, DO previous delivery 08/26/2019 Z36.9 Encounter for [...] 1:20 pm - Marco Tate M.D. at [facility]11/27/2019 - Marco Tate M.D.O72.2 Delayed and secondary hemorrhageComments:pt given misoprostol/ tranexamic acid / oxytocin. with good response will continue to observe Functional Status Description No Information Available Mental Status Description No Information Available Referrals Description No Information Available
== END | disposition left against medical advice (07) ==
LOC: ED 17:50
DX: Z53.21 Procedure and treatment not carried out due to patient leaving prior to being seen by health care provider (principal); O72.1 Other immediate postpartum hemorrhage

== ENCOUNTER 2019-12-03 21:05 | Observation (INO) | payer OTHER ==
[2019-12-03] MEDS: Oxytocin in LR* 20 UNITS/1,000 ML BAG IVPB SCH ×2 (21:33→21:56)
[2019-12-03 21:42] LABS: ABS Eosinophils 0.1 10^3/ul (0-0.6); ABS Lymphocytes 2.1 10^3/ul (1.0-4.8); ABS Monocytes 0.3 10^3/ul (0-0.8); ABS Neutrophils 2.5 10^3/ul (1.5-7.7); Eosinophil % 1.8 %; Hematocrit 25 % (35-47); Hemoglobin 8.3 g/dL (12.0-16.0); Lymphocyte % 42.6 %; Mean Corpuscular HGB Conc 33 g/dL (31-36); Mean Corpuscular Hemoglobin 30 pg (27-31); Mean Corpuscular Volume 91 fL (80-97); Mean Platelet Volume 9.8 fL (7.4-10.4); Platelet Count 299 10^3/uL (150-450); Red Blood Count 2.79 10^6 /uL (3.70-4.87); Red Cell Distribution Width 14 % (10-15)
[2019-12-03] MEDS ORDERED: Tranexamic Acid 1,000 MG/10 ML 1,000 MG in NS 0.9% 50 ML* 50 ML IV ONE (21:57)
[2019-12-03] MEDS ORDERED: DiMENhydriNATE IV* 50 MG/ML VIAL IV PUSH PRN (22:23)
[2019-12-03] MEDS ORDERED: Acetaminophen TAB* 325 MG PO PRN (22:23)
[2019-12-03] MEDS ORDERED: fentaNYL* 50 MCG/ML 2 ML VIAL (100 MCG VIAL) IV PRN (22:23)
[2019-12-03] MEDS ORDERED: Naloxone* 0.4 MG/ML 1 ML VIAL IV PRN (22:23)
[2019-12-03] MEDS ORDERED: Ondansetron INJ* 2 MG/ML VIAL IV PRN (22:23)
[2019-12-03] MEDS ORDERED: diPHENhydraMINE IV* 50 MG/ML 1 ml VIAL (BENADRYL) IV PRN (22:23)
[2019-12-03] MEDS ORDERED: ceFOXitin 2 GM IVPREMIX* 2 GM/50 ML BAG IVPB ONE (22:29)
[2019-12-03] MEDS ORDERED: ceFOXitin 2 GM IVPREMIX* 2 GM/50 ML BAG ONE (22:31)
[2019-12-03] MEDS ORDERED: Famotidine IV* 10 MG/ML 2 ML (20 mg) ONE (22:56)
[2019-12-03] MEDS ORDERED: Lactated Ringers 1000 ML Bag* 1,000 ML IV SCH (23:00)
[2019-12-03] MEDS ORDERED: fentaNYL* 50 MCG/ML 2 ML VIAL (100 MCG VIAL) ONE (23:04)
[2019-12-03] MEDS ORDERED: Midazolam* 1 MG/ML 2 ML VIAL (2 MG) ONE ×2 (23:04→23:21)
[2019-12-03] MEDS ORDERED: Chloroprocaine 2%* 20 ML VIAL ONE (23:05)
[2019-12-03] MEDS ORDERED: Chloroprocaine 3%* 20 ML VIAL ONE (23:21)
[2019-12-03] MEDS ORDERED: Ondansetron INJ* 2 MG/ML VIAL ONE (23:22)
[2019-12-03] MEDS ORDERED: Lidocaine 2% PF * 5 ML VIAL ONE (23:38)
[2019-12-03] MEDS ORDERED: Propofol* 10 MG/ML 20 ML BTL ONE (23:38)
[2019-12-04] MEDS ORDERED: OXYTOCIN IVPB SCH (04:45)
[2019-12-04] MEDS ORDERED: Ketorolac INJ* 30 MG/ML 1 ML VIAL IV PUSH PRN (04:45)
[2019-12-04] MEDS ORDERED: LR IVPB SCH (04:45)
--- NOTE | 2019-12-04 04:55 | OP ---
AMENDED REPORT TO CORRECT DATE OF OPERATION DATE OF OPERATION: 12/03/19 - ROOM #115 DATE OF : 83 SURGEON: Marco Tate MD DUCTFIXING PLUMBER: None. ANESTHESIA: Spinal. PRE-OP DIAGNOSIS: hemorrhage. POST-OP DIAGNOSIS: hemorrhage. OPERATIVE PROCEDURE: D and C. ESTIMATED BLOOD LOSS: 150 cc. SPECIMEN: Includes products of conception. FINDINGS: On exam under anesthesia, the cervix, vagina, and vulva appeared normal. On suction curettage, there was scant amounts of tissue obtained and small amounts of tissue decidua versus placenta. DESCRIPTION OF PROCEDURE: The patient identified, procedure identified as a D and C. The patient was taken to the operating room, prepped and draped in the usual fashion in the dorsal lithotomy position under spinal anesthesia. A double-tooth tenaculum was placed on the anterior lip of the cervix. The cervix was easily dilated up to #30 Kendall dilator. The #10 suction curette was inserted and suction curettage performed. The Banjo curette could not be fit inside but the larger sharp curette was inserted and sharp curettage performed with gritty sensation felt throughout the circumference. The procedure was done under ultrasound guidance and at no time was any perforation noted. At the end of the procedure, no further tissue was obtained and a gritty sensation was felt throughout the circumference. All sponge and instrument counts were correct and the patient returned to recovery room in stable condition. [id number]/[facility] #: [id number] [facility]
[2019-12-04 09:21] LABS: ABS Eosinophils 0.1 10^3/ul (0-0.6); ABS Lymphocytes 1.7 10^3/ul (1.0-4.8); ABS Monocytes 0.3 10^3/ul (0-0.8); ABS Neutrophils 2.5 10^3/ul (1.5-7.7); Eosinophil % 2.6 %; Hematocrit 23 % (35-47); Hemoglobin 7.6 g/dL (12.0-16.0); Lymphocyte % 36.7 %; Mean Corpuscular HGB Conc 33 g/dL (31-36); Mean Corpuscular Hemoglobin 29 pg (27-31); Mean Corpuscular Volume 90 fL (80-97); Mean Platelet Volume 10.2 fL (7.4-10.4); Nucleated Red Blood Cells % 0.1; Platelet Count 226 10^3/uL (150-450); Red Blood Count 2.58 10^6 /uL (3.70-4.87); Red Cell Distribution Width 14 % (10-15); White Blood Count 4.6 10^3/uL (3.5-10.8)
[2019-12-04] MEDS ORDERED: Acetaminophen TAB* 325 MG PO ONE (13:35)
--- NOTE | 2019-12-04 13:41 | PN ---
Progress Note - Progress Note Date of Service: 12/04/19 Note: DISCHARGE NOTE S: pt is feeling better, bleeding decreasing. Has changed pad every 3-4hrs or so. Most recently it was not soaked. Opted for another unit PRBC this am as the H/H had dropped. She was feeling very exhausted after being up to the bathroom x1. Has not been oob otherwise. Kelsey PO. Pumping for baby. AVSS Abd: soft, fundus down 3+ from U. Ext: Neg edema/calf tenderness Labs: awaiting repeat CBC s/p transfusion. A: POD#1 s/p D&C for retained POC about 3wks pp. Just received second unit PRBC. P: if H/H appropriate on redraw then she will be discharged to home. Has f/u appt for post- visit.
[2019-12-04] MEDS ORDERED: Acetaminophen TAB* 325 MG ONE (13:48)
[2019-12-04 14:39] LABS: Hematocrit 27 % (35-47); Hemoglobin 9.3 g/dL (12.0-16.0)
[2019-12-04 16:38] VITALS: BP 121/72
--- NOTE | 2019-12-10 00:18 | DS ---
DISCHARGE SUMMARY: DATE OF ADMISSION: 12/03/19 DATE OF DISCHARGE: 12/04/19 PROCEDURES DURING HER STAY: Suction dilation and curettage. ADMISSION DIAGNOSIS: Retained products of conception. DISCHARGE DIAGNOSIS: Status post evacuation of retained products of conception. IMAGING DURING HER STAY: Ultrasound. During her stay, she received 2 units of PRBCs. HOSPITAL COURSE: She was admitted with bleeding 4 weeks , underwent suction dilation and curettage for removal of retained products of conception. She had received 1 unit of blood prior to the procedure and then when her H and H dropped post procedure, she received a second unit and then had adequate rise in the H and H. She had minimal bleeding at that point in time with stable vital signs and therefore was discharged to home. She was given discharge instructions to follow up in the office and they were all reviewed with the patient. DISCHARGE DISPOSITION: To home. She was stable upon discharge. [id number]/[facility] #: [id number] MTDD
== END 2019-12-04 15:50 | disposition home or self-care (01) ==
LOC: MCHOBOUT 21:05 → INTOOBSV 21:11 → OBSVTOIN 21:11 → MCHOB 21:11 → UNDOADMOB 12-04 04:45 → MCHOB 12-04 04:45 → UNDODISOB 12-04 15:50
PROVIDERS: ADMIT Obstetrics & Gynecology; ATTEND Obstetrics & Gynecology
DX: O72.2 Delayed and secondary postpartum hemorrhage (principal); Z88.6 Allergy status to analgesic agent; Z79.899 Other long term (current) drug therapy
CPT/HCPCS: 36415; 36430; 76830; 76856; 85014; 85018; 85025; 86850; 86900; 86901; 86922; 88305; A9270-GY; G0378; J0694; J2250; J2400; J2405; J2704; J3010; P9040

== ENCOUNTER 2019-12-18 08:43 | Emergency (ER) | payer OTHER ==
--- OUTSIDE RECORDS SUMMARY | 2019-12-18 08:50 | XMS REPORT | Continuity of Care Document ---
:1985 External Reference #:[id number] Author Name Marco Tate M.D. Address [address] [place] [address] Care Team Providers Name Role Phone Jesus Barron M.D. - Family Care Team Information Intelligence Officer Medicine [facility] - Medical Oncology Care Team Information Intelligence Officer Problems Active Problems Provider Date Disorder of [...] CPT Code Status Date Vaccine Lot # [id number] Given 09/10/2019 Tetnus, Diptheria Toxoids And Acellular Pertussis, [id number] PT > 7Yrs Old 64587 Given 08/06/2019 Influenza Vaccine Quadrivalent Preser/Antibiotic [id number] Free Im Use 22830 Given 08/23/2016 Influenza Virus Vaccine, Quadrivalent, Split, [id number] Preservative Free 73241 Given 06/19/2016 Tetnus, Diptheria Toxoids And Acellular Pertussis, [id number] PT > 7Yrs Old Vital Signs Date Vital Result Comment 11/20/2019 2:53pm BP Systolic 112 mmHg BP Diastolic 68 mmHg Body Temperature 98.1 F Height 61.5 inches 5'1.50" Weight 160.00 lb BMI (Body Mass Index) 29.7 kg/m2 Last Menstrual Period 2234647 11 Parity 4 04/15/2019 1:33pm BP Systolic 124 mmHg BP Diastolic 62 mmHg Height 61.5 inches 5'1.50" Weight 126.00 lb BMI (Body Mass Index) 23.4 kg/m2 Last Menstrual Period 0068710 11 Parity 3 Results Test Acquired Date Facility Test Result H/L Range Note CBC Auto 12/03/2019 [facility] White Blood 5.0 10^3/uL Normal 3.5-10.8 [place] [address] Count [phone] Red Blood Count 2.79 10^6/uL Low 3.70-4.87 Hemoglobin 8.3 g/dL Low 12.0-16.0 Hematocrit 25 % Low 35-47 Mean Corpuscular Volume 91 fL Normal 80-97 Mean Corpuscular Hemoglobin 30 pg Normal 27-31 Mean Corpuscular HGB Conc 33 g/dL Normal 31-36 Red Cell Distribution Width 14 % Normal 10-15 Platelet Count 299 10^3/uL Normal 150-450 Mean Platelet Volume 9.8 fL Normal 7.4-10.4 Abs Neutrophils 2.5 10^3/uL Normal 1.5-7.7 Abs Lymphocytes 2.1 10^3/uL Normal 1.0-4.8 Abs Monocytes 0.3 10^3/uL Normal 0-0.8 Abs Eosinophils 0.1 10^3/uL Normal 0-0.6 Abs Basophils 0.0 10^3/uL Normal 0-0.2 Abs Nucleated RBC 0.0 10^3/uL Granulocyte % 49.2 % Lymphocyte % 42.6 % Monocyte % 6.0 % Eosinophil % 1.8 % Basophil % 0.4 % Nucleated Red Blood Cells % 0.0 Type And Screen 12/03/2019 [facility] Patient [place] [address] [phone] Antibody Screen NEGATIVE Laboratory test 12/03/2019 [facility] Packed Cells SEE RESULTS 1 [place] [address] BELO <SEE [phone] NOTE> CBC Auto Diff 11/27/2019 [facility] White Blood 5.1 10^3/uL Normal 3.5-1 [place] [address] Count 0.8 [phone] Red Blood Count 2.17 10^6/uL Low 3.70-4.87 Hemoglobin 6.8 g/dL Low 12.0-16.0 Hematocrit 20 % Low 35-47 Mean Corpuscular Volume 92 fL Normal 80-97 Mean Corpuscular Hemoglobin 32 pg High 27-31 Mean Corpuscular HGB Conc 34 g/dL Normal 31-36 Red Cell Distribution Width 13 % Normal 10-15 Platelet Count 157 10^3/uL Normal 150-450 Mean Platelet Volume 8.8 fL Normal 7.4-10.4 Abs Neutrophils 3.1 10^3/uL Normal 1.5-7.7 Abs Lymphocytes 1.5 10^3/uL Normal 1.0-4.8 Abs Monocytes 0.3 10^3/uL Normal 0-0.8 Abs Eosinophils 0.1 10^3/uL Normal 0-0.6 Abs Basophils 0.0 10^3/uL Normal 0-0.2 Abs Nucleated RBC 0.0 10^3/uL Granulocyte % 61.7 % Lymphocyte % 30.6 % Monocyte % 5.0 % Eosinophil % 2.4 % Basophil % 0.3 % Nucleated Red Blood Cells % 0.0 CBC Auto 11/26/2019 [facility] White Blood 6.6 10^3/uL Normal 3.5-10.8 [place] [address] Count [phone] Red Blood Count 2.09 10^6/uL Low 3.70-4.87 [...] Blood Cells % 0.0 CBC Auto 11/26/2019 [facility] White Blood 7.4 10^3/uL Normal 3.5-10.8 [place] [address] Count [phone] Red Blood Count 2.11 10^6/uL Low 3.70-4.87 [...] Blood Cells % 0.0 CBC Auto 11/26/2019 [facility] White Blood 12.3 10^3/uL High 3.5-10.8 [place] [address] Count [phone] Red Blood Count 2.55 10^6/uL Low 3.70-4.87 [...] Blood Cells % 0.0 Laboratory test 11/13/2019 [facility] Surgical SEE RESULT 2 [place] [address] Pathology BELOW [phone] CBC Auto Diff 11/12/2019 [facility] White Blood 6.2 10^3/uL Normal 3.5-1 [place] [address] Count 0.8 [phone] Red Blood Count 3.84 10^6/uL Normal 3.70-4.87 [...] % Nucleated Red Blood Cells % 0.1 Type And Screen 11/12/2019 [facility] Patient [place] [address] [phone] Antibody Screen NEGATIVE Comp Metabolic 11/11/2019 [facility] Sodium 138 mmol/L Normal 135-145 [place] [address] [phone] Potassium 3.7 mmol/L Normal 3.5-5.0 Chloride 106 [...] Egfr Non- 150.8 >60 Egfr 182.5 >60 3 Laboratory 11/11/2019 [facility] Bile Acid 32 mcmol/L Abnormal <=10 4 [place] [address] [phone] Laboratory 10/27/2019 [facility] Genital For SEE RESULT 5 [place] [address] GRP B Strep BELOW [phone] Only Laboratory 08/26/2019 [facility] Glucose 1 HR 100 mg/dL Normal 70-160 6 [place] [address] Post [phone] Prandial CBC With No 08/26/2019 [facility] White Blood 8.9 10^3/uL Normal 3.5-10.8 [place] [address] Count [phone] Red Blood Count 3.62 10^6/uL Low 3.70-4.87 [...] High 7.4-10.4 Liver Function 07/26/2019 [facility] Total Protein 6.1 g/dL Low 6.4-8.9 [address] [place] [address] [phone] Albumin 3.6 g/dL Normal 3.2-5.2 Globulin 2.5 g/dL Normal 2-4 Albumin/Globulin Ratio 1.4 Normal 1-3 Total Bilirubin 0.70 mg/dL Normal 0.2-1.0 Direct Bilirubin 0.10 mg/dL Normal 0.03-0.18 Indirect Bilirubin 0.6 mg/dL Normal 0.3-1.0 Alkaline Phosphatase 56 U/L Normal 34-104 Alt 25 U/L Normal 7-52 Ast 18 U/L Normal 13-39 Laboratory test 07/26/2019 [facility] Bile Acid 3 mcmol/L < =10 7 finding [address] [place] [address] [phone] 1 SEE RESULTS BELOW [id number] OP PC TRANSFUSED 12/04/19 0028 [id number] OP PC TRANSFUSED 12/04/19 1015 2 SEE RESULT BELOW Name: MERCED BAUER : [address]: Marco Tate MD Acct: [id number] Unit: [id number] AGE: 34 Location: [place] [address] Re11/13/19 SEX: F Status: ADM IN SPEC: [id number] PERRI: 11/13/19-04 [facility] DR: Marco Tate MD REQ: [id number] RECD: 11/13/19 STATUS: SOUT _ ORDERED: LEVEL [...] unremarkable. The specimen is differentially inked and solar manufacturer's representative sections are submitted in one cassette. Signed by and Reported on: Alysia Wilcox MD 11/14/19 1450 END OF REPORT DEPARTMENT OF PATHOLOGY, [address] [place] [address] Sean Tapia M.D. Director [facility] # [id number] Name: MERCED BAUER : [address]: Marco Tate MD Acct: [id number] Unit: [id number] AGE: 34 Location: [facility] 117-01 Re11/13/19 SEX: F Status: ADM IN Mother and Child Comparative Results Mother: MERCED BAUER [id number] ([id number]) Child: CHRISTINE,GIRL BABY [id number] ([id number]) Blood Bank Tests Collected Mother Result Abn Range Child Result Abn Range Patient Blood Type 11/13/19-0852 O Pos 3 Because ethnic data is not always readily [...] 15-29 5 Kidney failure <15 (or dialysis) 4 Test Performed by: [place] [address] Managed Care Nurse: Lorne Reed M.D. Ph.D.; CLIA# [id number] 5 SEE RESULT BELOW Name: MERCED BAUER : [address]: Marco Tate MD Acct: [id number] Unit: [id number] AGE: 34 Location: [facility] Re10/27/19 SEX: F Status: REG REF SPEC: [id number] PERRI: 10/27/19-1256 [facility] DR: Marco Tate MD REQ: [id number] RECD: 10/27/193 STATUS: COMP _ SOURCE: CER/VAG/RE SPDESC: ORDERED: Grp B Strp Scrn COMMENTS: [id number] QUERIES: Is Patient Penicillin Allergic? N Is patient penicillin allergic and/or sensitivities needed? N Provider Requisition # C77#[id number]_ Procedure Result Reported Site Group B Strep Culture Screen Final 10/29/19- 1148 ML Group B Strep Screen Negative * ML - Main Lab . END OF REPORT DEPARTMENT OF PATHOLOGY, [address] [place] [address] Sean Tapia M.D. Director [facility] # [id number] 6 [id number] Test Performed by: [place] [address] Managed Care Nurse: Lorne Reed M.D. Ph.D.; CLIA# [id number] Procedures Date Code Description Status 11/13/2019 66838 Delivery Only Completed 11/13/2019 57925 Delivery Only Completed 11/13/2019 01795 Delivery Routine Completed 11/13/2019 29187 Ligation/Transection Fallopian Tubes During Surgery Completed 07/04/2019 48833 Echography Uterus Complete Completed Medical Devices Description No Information Available Encounters Type Date Location Provider Dx Diagnosis Office Visit 11/10/2019 [facility] Marco Tate, Z01.818 Encounter for other 2:40p Sawyer preprocedural examination Assessments Date Code Description Provider 12/04/2019 Z01.818 Encounter for other preprocedural Marco Tate M.D. examination 11/27/2019 O72.2 Delayed and secondary hemorrhage Marco [...] Marco Tate M.D. 11/13/2019 Z38.01 Single liveborn infant, delivered by Samantha Crowley MD 11/13/2019 Z38.01 Single liveborn , delivered by Marco Tate M.D. 11/13/2019 Z39.0 [...] care for low transverse scar from Luis Lorenzog[address], DO previous delivery 08/26/2019 Z36.9 Encounter for screening, Laboratory unspecified 08/06/2019 Z23 Encounter for immunization Marco Tate M.D. 08/06/2019 Z36.9 Encounter for screening, Marco Tate M.D. unspecified 07/04/2019 O34.211 Maternal care for low transverse scar from Luis Fontenot JR, DO previous delivery 07/04/2019 Z36.3 Encounter for screening for Luis Fontenot JR, DO malformations 07/04/2019 Z36.3 Encounter for screening for Ultrasounds malformations Plan of Treatment Future Appointment(s):12/08/2019 3:20 pm - Marco [facility] at [facility]12/17/2019 1:20 pm - Marco Tate M.D. at [facility] Functional Status Description No Information Available Mental Status Description No Information Available Referrals Description No Information Available
--- OUTSIDE RECORDS SUMMARY | 2019-12-18 08:50 | XMS REPORT ---
:1985 Author Organization [facility] Care Team Providers Name Role Phone Unavailable Unavailable Unavailable Problems Condition Condition Condition Status Onset Resolution Last Treating Comments Name Details Category Date Date Treatment Clinician Date Diagnosis Active [facility] for care for 6- Deng patient patient with with recurrent recurrent loss, first loss, first trimester trimester Diagnosis Active [facility] for care for 9-13 Deng patient [...]
--- OUTSIDE RECORDS SUMMARY | 2019-12-18 08:50 | XMS REPORT ---
:1985 Author Organization [facility] Care Team Providers Name Role Phone Unavailable Unavailable Unavailable Problems Condition Condition Condition Status Onset Resolution Last Treating Comments Name Details Category Date Date Treatment Clinician Date Diagnosis Active [facility] for care for 6-26 Deng patient patient with with recurrent recurrent loss, first loss, first trimester trimester Diagnosis Active [facility] for care for 9-13 Deng patient [...]
--- OUTSIDE RECORDS SUMMARY | 2019-12-18 08:50 | XMS REPORT | Continuity of Care Document ---
:1985 External Reference #:[id number] Author Name Marco aTte M.D. Address [address] [place] [address] Care Team Providers Name Role Phone Jesus Barron M.D. - Family Care Team Information Fruit Packer Face And Fill Medicine [facility] - Medical Oncology Care Team Information Fruit P[employer] Face And Fill Problems Active Problems Provider Date Disorder of [...] CPT Code Status Date Vaccine Lot # [id number] Given 09/10/2019 Tetnus, Diptheria Toxoids And Acellular Pertussis, [id number] PT > 7Yrs Old [address]68 Given 08/06/2019 Influenza Vaccine Quadrivalent Preser/Antibiotic 519023 Free Im Use 33258 Given 08/23/2016 Influenza Virus Vaccine, Quadrivalent, Split, [id number] Preservative Free 20521 Given 06/19/2016 Tetnus, Diptheria Toxoids And Acellular Pertussis, [id number] PT > 7Yrs Old Vital Signs Date Vital Result Comment 12/08/2019 3:24pm BP Systolic 120 mmHg BP Diastolic 58 mmHg Height 61.5 inches 5'1.50" Weight 150.00 lb BMI (Body Mass Index) 27.9 kg/m2 Last Menstrual Period 0789233 11 Parity 4 11/20/2019 2:53pm BP Systolic 112 mmHg BP Diastolic 68 mmHg Body Temperature 98.1 F Height 61.5 inches 5'1.50" Weight 160.00 lb BMI (Body Mass Index) 29.7 kg/m2 Last Menstrual Period 6936316 11 Parity 4 Results Test Acquired Date Facility Test Result H/L Range Note Laboratory test 12/03/2019 [facility] Surgical SEE RESULT 1 [place] [address] Pathology BELOW [phone] CBC Auto Diff 12/03/2019 [facility] White Blood 5.0 Normal 3.5 -10.8 [place] [address] Count 10^3/uL [phone] Red Blood Count 2.79 10^6/uL Low 3.70-4.87 [...] Cells % 0.0 Type And Screen 12/03/2019 [facility] Patient [place] [address] [phone] Antibody Screen NEGATIVE Laboratory test 12/03/2019 [facility] Packed Cells SEE RESULTS 2 [place] [address] BELO <SEE [phone] NOTE> CBC Auto Diff 11/27/2019 [facility] White Blood 5.1 10^3/uL Normal 3.5-1 [place] [address] Count 0.8 [phone] Red Blood Count 2.17 10^6/uL Low 3.70-4.87 [...] Blood Cells % 0.0 CBC Auto 11/26/2019 [facility] White Blood 6.6 10^3/uL Normal 3.5-10.8 [place] [address] Count [phone] Red Blood Count 2.09 10^6/uL Low 3.70-4.87 [...] Blood Cells % 0.0 CBC Auto 11/26/2019 [facility] White Blood 7.4 10^3/uL Normal 3.5-10.8 [place] [address] Count [phone] Red Blood Count 2.11 10^6/uL Low 3.70-4.87 [...] Blood Cells % 0.0 CBC Auto 11/26/2019 [facility] White Blood 12.3 10^3/uL High 3.5-10.8 [place] [address] Count [phone] Red Blood Count 2.55 10^6/uL Low 3.70-4.87 [...] Blood Cells % 0.0 Laboratory test 11/13/2019 [facility] Surgical SEE RESULT 3 [place] [address] Pathology BELOW [phone] CBC Auto Diff 11/12/2019 [facility] White Blood 6.2 10^3/uL Normal 3.5-1 [place] [address] Count 0.8 [phone] Red Blood Count 3.84 10^6/uL Normal 3.70-4.87 [...] Cells % 0.1 Type And Screen 11/12/2019 [facility] Patient [place] [address] [phone] Antibody Screen NEGATIVE Comp Metabolic 11/11/2019 [facility] Sodium 138 mmol/L Normal 135-145 Panel [place], [place] 4783347 [phone] Potassium 3.7 mmol/L Normal 3.5-5.0 Chloride 106 [...] Egfr Non- 150.8 >60 Egfr 182.5 >60 4 Laboratory 11/11/2019 [facility] Bile Acid 32 mcmol/L Abnormal <=10 5 [place] [address] [phone] Laboratory 10/27/2019 [facility] Genital For SEE RESULT 6 [place] [address] GRP B Strep BELOW [phone] Only Laboratory 08/26/2019 [facility] Glucose 1 HR 100 mg/dL Normal 70-160 7 [place] [address] Post [phone] Prandial CBC With No 08/26/2019 [facility] White Blood 8.9 10^3/uL Normal 3.5-10.8 [place] [address] Count [phone] Red Blood Count 3.62 10^6/uL Low 3.70-4.87 Hemoglobin 11.7 g/dL Low 12.0-16.0 Hematocrit 36 % Normal 35-47 Mean Corpuscular Volume 99 fL High 80-97 Mean Corpuscular Hemoglobin 32 pg High 27-31 Mean Corpuscular HGB Conc 33 g/dL Normal 31-36 Red Cell Distribution Width 14 % Normal 10-15 Platelet Count 150 10^3/uL Normal 150-450 Mean Platelet Volume 11.1 fL High 7.4-10.4 Liver Function 07/26/2019 [facility] Total Protein 6.1 g/dL Low 6.4-8.[address] [place] [address] [phone] Albumin 3.6 g/dL Normal 3.2-5.2 Globulin 2.5 g/dL Normal 2-4 Albumin/Globulin Ratio 1.4 Normal 1-3 Total Bilirubin 0.70 mg/dL Normal 0.2-1.0 Direct Bilirubin 0.10 mg/dL Normal 0.03-0.18 Indirect Bilirubin 0.6 mg/dL Normal 0.3-1.0 Alkaline Phosphatase 56 U/L Normal 34-104 Alt 25 U/L Normal 7-52 Ast 18 U/L Normal 13-39 Laboratory test 07/26/2019 [facility] Bile Acid 3 mcmol/L < =10 8 finding [address] [place] [address] [phone] 1 SEE RESULT BELOW Name: MERCED BAUER : [address]: Marco Tate MD Acct: [id number] Unit: [id number] AGE: 34 Location: [facility] 115-01 Re12/04/19 Dis: 12/04/19 SEX: F Status: DIS Arianna SPEC: [id number] PERRI: 12/03/19- SUBM DR: Marco Tate MD REQ: [id number] RECD: 12/03/19 STATUS: SOUT _ ORDERED: LEVEL 4 FINAL DIAGNOSIS Uterine contents, curettage: -- Proliferative endometrium with retained products of conception. PRE-OPERATIVE DIAGNOSIS Retained products of conception GROSS DESCRIPTION The specimen is received in formalin labeled, Products of Conception, and consists of a 6.5 x 4.5 x 1.5 cm aggregate of yellow white rubbery soft tissue fragments admixed with francis-pink to red-brown irregular soft tissue fragments. No chorionic villi are identified. Possible parts are identified. Lost Charge Card Clerk sections are submitted in two cassettes. Signed by and Reported on: Alysia Wilcox MD 12/05/19 1707 END OF REPORT DEPARTMENT OF PATHOLOGY, [address] [place] [address] Sean Tapia M.D. Director [facility] # [id number] 2 SEE RESULTS BELOW [id number] OP PC TRANSFUSED 12/04/19 0028 [id number] OP PC TRANSFUSED 12/04/19 1015 3 SEE RESULT BELOW Name: MERCED BAUER : [address]: Marco Tate MD Acct: [id number] Unit: [id number] AGE: 34 Location: [facility] 117-01 Re11/13/19 SEX: F Status: ADM IN SPEC: [id number] PERRI: 11/13/19-[address] [facility] [address]: Marco Tate MD REQ: [id number] RECD: 11/13/19 STATUS: SOUT _ ORDERED: LEVEL [...] unremarkable. The specimen is differentially inked and fuels sales representative sections are submitted in one cassette. Signed by and Reported on: Alysia Wilcox MD 11/14/19 1450 END OF REPORT DEPARTMENT OF PATHOLOGY, [address] [place] [address] Sean Tapia M.D. Director [facility] # [id number] Name: MERCED BAUER : [address]: Marco Tate MD Acct: [id number] Unit: [id number] AGE: 34 Location: [place] [address] Re11/13/19 SEX: F Status: ADM IN Mother and Child Comparative Results Mother: MERCED BAUER [id number] ([id number]) Child: CHRISTINEGIRL BABY [id number] ([id number]) Blood Bank Tests Collected Mother Result Abn Range Child Result Abn Range Patient Blood Type 11/13/19-0852 O Pos 4 Because ethnic data is not always readily [...] 15-29 5 Kidney failure <15 (or dialysis) 5 Test Performed by: [place] [address] Language Tutor: Lorne Reed M.D. Ph.D.; CLIA# [id number] 6 SEE RESULT BELOW Name: CHRISTINEMERCED : [address]: Marco Tate MD Acct: [id number] Unit: [id number] AGE: 34 Location: [facility] Re10/27/19 SEX: F Status: REG REF SPEC: [id number] PERRI: 10/27/19-[address] [facility] [address]: Marco Tate MD REQ: [id number] RECD: 10/27/19 STATUS: COMP _ SOURCE: CER/VAG/RE SPDESC: ORDERED: Grp B Strp Scrn COMMENTS: [id number] QUERIES: Is Patient Penicillin Allergic? N Is patient penicillin allergic and/or sensitivities needed? N Provider Requisition # C77#[id number]_ Procedure Result Reported Site Group B Strep Culture Screen Final 10/29/19- 1148 ML Group B Strep Screen Negative * ML - Main Lab . END OF REPORT DEPARTMENT OF PATHOLOGY, [address] [place] [address] Sean Tapia M.D. Director [facility] # [id number] Test Performed by: [address] [address] Language Tutor: Lorne Reed M.D. Ph.D.; [facility]# [id number] Procedures Date Code Description Status 11/13/2019 22284 Delivery Only Completed 11/13/2019 72537 Delivery Only Completed 11/13/2019 93948 Delivery Routine Completed 11/13/2019 21428 Ligation/Transection Fallopian Tubes During Surgery Completed 07/04/2019 97713 Echography Uterus Complete Completed Medical Devices Description No Information Available Encounters Type Date Location Provider Dx Diagnosis Office Visit 11/10/2019 [facility] Marco Tate, Z01.818 Encounter for other 2:40p M.DArin preprocedural examination Assessments Date Code Description Provider 12/08/2019 O72.2 Delayed and secondary hemorrhage Marco Tate M.D. 12/04/2019 Z01.818 Encounter for other preprocedural Marco [...] for Ultrasounds malformations Plan of Treatment Future Appointment(s):12/17/2019 1:20 pm - Marco Tate M.D. at [facility] Functional Status Description No Information Available Mental Status Description No Information Available Referrals Description No Information Available
--- OUTSIDE RECORDS SUMMARY | 2019-12-18 08:50 | XMS REPORT ---
:1985 Author Organization [facility] Care Team Providers Name Role Phone JAMIE CASTAÑEDA Primary Care Physician Unavailable Allergies, Adverse Reactions, Alerts Allergy Code CodeSystem Reaction Severity Criticality Status Start Substance Date Dilaudid unspecified Moderate Active 2019-03 morphine Anaphylaxis Moderate Active 2019-03 sulfate Medications Medication Medication Medication Start Stop Route [...] Name UID Location SNOMED-CT () 2019-10-[address], [address] [id number] SNOMED-CT () 2019-11-[address], [address] [id number] SNOMED-CT () 2019-12-[address], [address] [id number] SNOMED-CT () 2019-09-[address], [address] [id number] Encounters/Encounter Diagnoses Encounter Encounter Diagnosis Diagnosis Diagnosis Date of Service Name Code Code Name CodeSystem Diagnosis Delivery Location Nursing T1030 SNOMED-CT 2019-12-02 [facility] [place] [facility] [address] [place] [address], [address] Vital Signs No Information Social History Element Description Description Start End Code CodeSystem AdditionalInfo Date Date SexAssignedAtBirth Female 0 F AdministrativeGender 04-23 Hospital Discharge Instructions Reason For Referral Medical Equipment FDA Assessments
[2019-12-18 08:54] VITALS: BP 113/71
--- NOTE | 2019-12-18 10:19 | UC ---
Respiratory Complaint HPI - HPI Summary HPI Summary: Patient is a 34-year-old female presenting with father for complaint of pain with breathing 4 days. Patient states she was in [place] on 12/15/2019 when it first began and she was diagnosed with pneumonia and placed on cefdinir. Patient still currently taking Cefdinir. States her pain worsened last night so she came here today to make sure that her pneumonia was improving. Patient states that a CT was done in [place] to rule out a pulmonary embolism since she was "in and out" of the hospital at the end of October" for hemorrhaging after having her baby. Denies any fever or chills. Denies nausea or vomiting. Denies difficulty breathing. - History of Current Complaint Chief Complaint: UCGeneralIllness Stated Complaint: PAIN WHEN BREATHING Hx Obtained From: Patient Hx Last Menstrual Period: 2 weeks ago Pain Intensity: 4 Pain Scale Used: 0-10 Numeric - Allergies/Home Medications Allergies/Adverse Reactions: Allergies Allergy/AdvReac Type Severity Reaction Status Date / Time morphine Allergy Severe Anaphylatic Verified 12/18/19 08:54 Shock hydromorphone Allergy Intermediate Rash Verified 12/18/19 08:54 Home Medications: Home Medications Vitamin TAB* 1 tab PO BEDTIME 12/16/17 [History Confirmed 12/18/19] Ferrous Gluconate TAB* [Fergon TAB*] 324 mg PO BID #60 tab 11/27/19 [Rx Confirmed 12/18/19] PMH/Surg Hx/FS Hx/Imm Hx Other History Of: Negative For: HIV, Hepatitis B - Surgical History Surgical History: Yes Surgery Procedure, Year, and Place: 4 c-sections. Plate in jaw and rods in both femurs- age 17 - 3 leg surgeries- 1 jaw procedure. [place] teeth extractions - Family History Known Family History: Negative: Renal Disease, Respiratory Disease, Seizure Disorder - Social History Alcohol Use: None Substance Use Type: None Smoking Status (MU): Never Smoked Tobacco - Immunization History Most Recent Influenza Vaccination: 08/16 Most Recent Tetanus Shot: 06/19/16 Most Recent Pneumonia Vaccination: none Review of Systems All Other Systems Reviewed And Are Negative: Yes Constitutional: Positive: Negative. Negative: Fever, Chills ENT: Positive: Negative Respiratory: Positive: Shortness Of Breath, Other - "pain with breathing". Negative: Cough Cardiovascular: Positive: Negative Gastrointestinal: Positive: Negative Neurovascular: Positive: Negative Musculoskeletal: Positive: Negative Psychological: Positive: Negative Physical Exam - Summary Physical Exam Summary: Vital Signs Reviewed: Yes A+Ox3, no distress, sitting comfortably in chair Eyes: Conjunctiva Clear ENT: Hearing grossly normal Neck: Positive: Supple Respiratory: Positive: No respiratory distress, No accessory muscle use + CTA throughout no w/r Cardiovascular: RRR nl s1, s2 no m/r CBT <2 sec Musculoskeletal Exam: BERG x 4 without difficulty Neurological: Positive: Alert Psychological: Positive: age appropriate behavior Skin: Positive: no rash, no ecchymosis Vital Signs: Initial Vital Signs Temp 98.2 F 12/18/19 08:50 Pulse 67 12/18/19 08:50 Resp 16 12/18/19 08:50 BP 113/71 12/18/19 08:50 Pulse Ox 98 12/18/19 08:50 Diagnostics - Radiology CXR Radiology Interpretation Completed By: Radiologist Summary of Radiographic Findings: IMPRESSION: SMALL LEFT BASILAR INFILTRATE AND SMALL PLEURAL EFFUSION WITH CONVEX DENSITY IN THE LEFT COSTOPHRENIC ANGLE POSSIBLY REPRESENTING A GREEN'S HUMP SIGN AND MAY INDICATE A PULMONARY INFARCTION. RECOMMEND CLINICAL CORRELATION. Respiratory Course/Dx - Course Course Of Treatment: CXR findings: "SMALL LEFT BASILAR INFILTRATE AND SMALL PLEURAL EFFUSION WITH CONVEX DENSITY IN THE LEFT COSTOPHRENIC ANGLE POSSIBLY REPRESENTING A GREEN'S HUMP SIGN AND MAY INDICATE A PULMONARY INFARCTION." Discussed these findings with patient and recommended further imaging and lab work in the emergency room to again rule out pulmonary embolism. Patient voiced understanding but stated she would need to "stop at home for just a few minutes to breast-feed and then she would go." Patient VS normal and is no pain or respiratory distress upon departure. - Differential Dx/Diagnosis Differential Diagnosis/HQI/PQRI: Pulmonary Embolism Provider Diagnosis: Left lower lobe pneumonia, Pleurisy with pleural effusion Discharge ED - Sign-Out/Discharge Documenting (check all that apply): Patient Departure All imaging exams completed and their final reports reviewed: Yes - Discharge Plan Condition: Stable Disposition: HOME Patient Education Materials: Pleurisy (ED) Referrals: Jesus Barron MD [Primary Care Provider] - Additional Instructions: The provider that evaluated you today thinks that you need additional testing that can be completed the emergency department. It is recommended that you go directly to emergency department for further evaluation. This evaluation included blood work or imaging. This testing will be directed and decided by the provider that evaluates you at the emergency department. If pain becomes worse, you feel lightheaded, or you have any other concerns while you are being driven to emergency department, it is recommended to pullover and contact 911. - Billing Disposition and Condition Condition: STABLE Disposition: Home
== END 2019-12-18 10:45 | disposition home or self-care (01) ==
LOC: UCEAST 08:43
DX: J18.9 Pneumonia, unspecified organism (principal); J90 Pleural effusion, not elsewhere classified; Z88.5 Allergy status to narcotic agent
CPT/HCPCS: 71046; 99212; G0463

== ENCOUNTER → 2019-12-18 11:24 | Emergency (ER) | payer OTHER ==
[~2019-12-18 11:24] MED LIST changes: -Acetaminophen TAB* 325 MG ONE; -Acetaminophen TAB* 325 MG PO ONE; -Buffered Lidocaine 1% SYRIN* 1 ML/SYRINGE INTRADERM ONE; -DOXYcycline IV 200 MG in NS 250 mL *Pre-Op OBGYN IVPB ONE; -Dexamethasone IV* 4 MG/ML 1 ML (4 MG) ONE; -Famotidine IV* 10 MG/ML 2 ML (20 mg) IV ONE; -Famotidine IV* 10 MG/ML 2 ML (20 mg) ONE; +Iohexol 350* (CONTRAST) 500 ML MDV IV ONE; -Ketorolac INJ* 30 MG/ML 1 ML VIAL ONE; -Lactated Ringers 1000 ML Bag* 1,000 ML IV SCH; -Lidocaine 1%* 5 ML VIAL ONE; -Lidocaine 2% PF * 5 ML VIAL ONE; -Midazolam* 1 MG/ML 2 ML VIAL (2 MG) ONE; -Misoprostol TAB* 200 MCG ONE; -Ondansetron INJ* 2 MG/ML VIAL ONE; -Propofol* 10 MG/ML 20 ML BTL ONE; -fentaNYL* 50 MCG/ML 2 ML VIAL (100 MCG VIAL) ONE
[2019-12-18 12:33] LABS: ABS Eosinophils 0.1 10^3/ul (0-0.6); ABS Lymphocytes 1.5 10^3/ul (1.0-4.8); ABS Monocytes 0.3 10^3/ul (0-0.8); ABS Neutrophils 2.8 10^3/ul (1.5-7.7); Eosinophil % 2.4 %; Hematocrit 34 % (35-47); Hemoglobin 11.1 g/dL (12.0-16.0); Lymphocyte % 32.5 %; Mean Corpuscular HGB Conc 33 g/dL (31-36); Mean Corpuscular Hemoglobin 29 pg (27-31); Mean Corpuscular Volume 86 fL (80-97); Mean Platelet Volume 9.9 fL (7.4-10.4); Platelet Count 195 10^3/uL (150-450); Red Blood Count 3.89 10^6 /uL (3.70-4.87); Red Cell Distribution Width 14 % (10-15); White Blood Count 4.7 10^3/uL (3.5-10.8)
[2019-12-18 12:47] LABS: INR 1.04 (0.82-1.09)
[2019-12-18 12:54] LABS: ALT 18 U/L (7-52); AST 20 U/L (13-39); Albumin 4.4 g/dL (3.2-5.2); Albumin/Globulin Ratio 1.4 (1-3); Alkaline Phosphatase 91 U/L (34-104); Anion Gap 8 mmol/L (2-11); BUN/Creatinine Ratio 27.1 (8-20); Blood Urea Nitrogen 13 mg/dL (6-24); CO2 Carbon Dioxide 27 mmol/L (22-32); Calcium 9.7 mg/dL (8.6-10.3); Chloride 103 mmol/L (101-111); EGFR African American 178.1 (>60); EGFR Non-African American 147.2 (>60); Globulin 3.2 g/dL (2-4); Glucose 78 mg/dL (70-100); Potassium 4.1 mmol/L (3.5-5.0); Sodium 138 mmol/L (135-145); Total Protein 7.6 g/dL (6.4-8.9)
[2019-12-18 13:00] LABS: HCG Pregnancy < 0.60 mIU/mL
--- NOTE | 2019-12-18 13:02 | ED ---
Complex/Multi-Sys Presentation - HPI Summary HPI Summary: Patient is a 34 y/o F presenting to the ED for a chief complaint of cough. Patient notes that around 00:30 on 12/18/19, she felt left anterior chest pain that she describes as a stabbing sensation. Patient denies fever or bilateral LE edema. She went to [facility] for the cough and chest pain and sent to [facility] for further assessment after having a chest x-ray. Patient states that she was diagnosed with pneumonia on 12/15/19 and prescribed antibiotics. PMHx is significant for hemorrhage 2 weeks ago after giving on 11/13. She denies a history of blood clots in herself or her family. Patient notes taking vitamins. - History Of Current Complaint Chief Complaint: EDGeneral Time Seen by Provider: 12/18/19 11:33 Hx Obtained From: Patient Onset/Duration: Sudden Onset, Still Present Timing: Constant Severity Currently: Moderate Severity Initially: Moderate Character: Sharp Associated Signs And Symptoms: Positive: Cough, Chest Pain - Left anterior. Negative: Edema - Bilateral LE, Fever Related History: Recent Illness - Pneumonia - Allergies/Home Medications Allergies/Adverse Reactions: Allergies Allergy/AdvReac Type Severity Reaction Status Date / Time morphine Allergy Severe Anaphylatic Verified 12/18/19 11:29 Shock hydromorphone Allergy Intermediate Rash Verified 12/18/19 11:29 Home Medications: Home Medications Vitamin TAB* 1 tab PO BEDTIME 12/16/17 [History Confirmed 12/18/19] Ferrous Gluconate TAB* [Fergon TAB*] 324 mg PO BID #60 tab 11/27/19 [Rx Confirmed 12/18/19] Cefdinir cap* [Cefdinir 300 MG cap (NF)] 300 mg PO BID 12/18/19 [History Confirmed 12/18/19] PMH/Surg Hx/FS Hx/Imm Hx Previously Healthy: Yes Endocrine/Hematology History: Reports: Hx Anemia - history of anemia Denies: Hx Diabetes, Hx Thyroid Disease Cardiovascular History: Denies: Hx Hypertension, Hx Rheumatic Fever, Hx Valvular Heart Disease, Other Cardiovascular Problems/Disorders Respiratory History: Denies: Hx Asthma, Hx Chronic Obstructive Pulmonary Disease (COPD), Hx Pulmonary Edema, Hx Pulmonary Embolism, Hx Sleep Apnea, Other Respiratory Problems/Disorders GI History: Denies: Hx Gastroesophageal Reflux Disease, Hx Ulcer, Other GI Disorders History: Reports: Hx Kidney Stones - passed one 6 months ago-still has 5 stones - 3 in one 2 in the other Denies: Hx Kidney Infection, Other Problems/Disorders Musculoskeletal History: Denies: Other Musculoskeletal History Sensory History: Reports: Hx Contacts or Glasses - glasses and contacts- will wear glasses day of surgery Denies: Hx Legally Blind, Hx Deafness, Hx Hearing Aid Opthamlomology History: Reports: Hx Contacts or Glasses - glasses and contacts- will wear glasses day of surgery Denies: Hx Legally Blind EENT History: Denies: Hx Deafness Neurological History: Reports: Hx Migraine - history of - none recent Denies: Hx Headaches, Hx Nerve Disease, Hx Seizures, Other Neuro Impairments/ Disorders Psychiatric History: Denies: Hx Anxiety, Hx Depression, Other Psychiatric Issues/Disorders - Surgical History Surgical History: Yes Surgery Procedure, Year, and Place: 4 c-sections. Plate in jaw and rods in both femurs- age 17 - 3 leg surgeries- 1 jaw procedure. [place] teeth extractions Hx Anesthesia Reactions: Yes - Father told her they had a hard time waking up after leg surgery Infectious Disease History: No Infectious Disease History: Denies: Hx Clostridium Difficile, Hx Hepatitis, Hx Human Immunodeficiency Virus (HIV), Hx of Known/Suspected MRSA, Hx Shingles, Hx Tuberculosis, Hx Known/ Suspected VRE, Hx Known/Suspected VRSA, History Other Infectious Disease, Traveled Outside the [place] in Last 30 Days - Family History Known Family History: Negative: Renal Disease, Respiratory Disease, Seizure Disorder, Blood Disorder - Blood clots - Social History Occupation: Employed Full-time Lives: With Family Alcohol Use: None Hx Substance Use: No Substance Use Type: Reports: None Hx Tobacco Use: No Smoking Status (MU): Never Smoked Tobacco Review of Systems Negative: Fever Positive: Chest Pain - Left anterior Positive: Cough Negative: Edema - Bilateral LE All Other Systems Reviewed And Are Negative: Yes Physical Exam - Summary Physical Exam Summary: Constitutional: Well-developed, Well-nourished, Alert. (-) Distressed Skin: Warm, Dry HENT: Normocephalic; Atraumatic Eyes: Conjunctiva normal Neck: Musculoskeletal ROM normal neck. (-) JVD, (-) Stridor, (-) Nuchal rigidity Cardio: Rhythm regular, rate normal, Heart sounds normal; Intact distal pulses; Radial pulses are 2+ and symmetric. (-) Murmur Pulmonary/Chest wall: Effort normal. (-) Respiratory distress, (-) Wheezes, (-) Rales Abd: Soft, (-) tenderness, (-) Distension, (-) Guarding, (-) Rebound Musculoskeletal: (-) Edema Lymph: (-) Cervical adenopathy Neuro: Alert, Oriented x3 Psych: Mood and affect Normal Triage Information Reviewed: Yes Vital Signs On Initial Exam: Initial Vitals Temp Pulse Resp BP Pulse Ox 97.8 F 61 18 124/74 99 12/18/19 11:26 12/18/19 11:26 12/18/19 11:26 12/18/19 11:26 12/18/19 11:26 Vital Signs Reviewed: Yes Procedures - Sedation Patient Received Moderate/Deep Sedation with Procedure: No Diagnostics - Vital Signs Vital Signs Temp Pulse Resp BP Pulse Ox 12/18/19 12:09 76 98 12/18/19 12:08 76 136/100 99 12/18/19 11:26 97.8 F 61 18 124/74 99 - Laboratory Lab Results: Lab Results 12/18/19 12/18/19 12/18/19 Range/Units 12:17 12:25 12:25 WBC 4.7 (3.5-10.8) 10^3/uL RBC 3.89 (3.70-4.87) 10^6 /uL Hgb 11.1 L (12.0-16.0) g/dL Hct 34 L (35-47) % MCV 86 (80-97) fL MCH 29 (27-31) pg MCHC 33 (31-36) g/dL RDW 14 (10-15) % Plt Count 195 (150-450) 10^3/uL MPV 9.9 (7.4-10.4) fL Neut % (Auto) 58.4 % Lymph % (Auto) 32.5 % Bennett % (Auto) 6.0 % Eos % (Auto) 2.4 % Baso % (Auto) 0.7 % Absolute Neuts (auto) 2.8 (1.5-7.7) 10^3/ul Absolute Lymphs (auto) 1.5 (1.0-4.8) 10^3/ul Absolute Monos (auto) 0.3 (0-0.8) 10^3/ul Absolute Eos (auto) 0.1 (0-0.6) 10^3/ul Absolute Basos (auto) 0.0 (0-0.2) 10^3/ul Absolute Nucleated RBC 0.0 10^3/ul Nucleated RBC % 0.0 INR (Anticoag Therapy) 1.04 (0.82-1.09) Sodium 138 (135-145) mmol/L Potassium 4.1 (3.5-5.0) mmol/L Chloride 103 (101-111) mmol/L Carbon Dioxide 27 (22-32) mmol/L Anion Gap 8 (2-11) mmol/L BUN 13 (6-24) mg/dL Creatinine 0.48 L (0.51-0.95) mg/dL Est GFR ( Amer) 178.1 (>60) Est GFR (Non-Af Amer) 147.2 (>60) BUN/Creatinine Ratio 27.1 H (8-20) Glucose 78 (70-100) mg/dL Calcium 9.7 (8.6-10.3) mg/dL Total Bilirubin 0.70 (0.2-1.0) mg/dL AST 20 (13-39) U/L ALT 18 (7-52) U/L Alkaline Phosphatase 91 (34-104) U/L Total Protein 7.6 (6.4-8.9) g/dL Albumin 4.4 (3.2-5.2) g/dL Globulin 3.2 (2-4) g/dL Albumin/Globulin Ratio 1.4 (1-3) Beta HCG, Quant Pending Result Diagrams: 12/18/19 12:25 12/18/19 12:17 Lab Statement: Any lab studies that have been ordered have been reviewed, and results considered in the medical decision making process. - CT Chest/Thorax CTA CT Interpretation Completed By: Radiologist Summary of CT Findings: Chest/Thorax CTA IMPRESSION: 1. NO PULMONARY ARTERIAL FILLING DEFECT TO SUGGEST PULMONARY EMBOLISM. 2. LEFT PLEURAL EFFUSION WITH LEFT LOWER LUNG CONSOLIDATION. Reviewed by Dr. Fish. - EKG 12:29 Cardiac Rate: NL - 63 BPM EKG Rhythm: Sinus Rhythm ST Segment: Normal Ectopy: None Summary of EKG Findings: An EKG at 12:29 reveals normal sinus rhythm with 63 BPM , left axis deviation, nml intervals. No STEMI. No acute changes. ED physician has reviewed and interpreted this EKG. Complex Multi-Symp Course/Dx Course Of Treatment: 34 y/o F w recent PNA p/w abnormal CXR. - concern for hamptons hump on CXR, will check CTA. - CTA w pleural effusion, no PE. Advised to follow up w PCP for repeat imaging in 1-2 weeks. Will continue abx - Diagnoses Provider Diagnoses: Pleural effusion Discharge ED - Sign-Out/Discharge Documenting (check all that apply): Patient Departure - Discharge - Discharge Plan Condition: Stable Disposition: HOME Patient Education Materials: Pleural Effusion (ED) Referrals: Jesus Barron MD [Primary Care Provider] - Additional Instructions: You were seen in the emergency department forabnormal chest x-ray. Your CT scan did not show any blood clots. It showed a pleural effusion which is a collection of fluid. Please follow up with her doctor in the next 1-2 weeks to have repeat chest x-rays to assure resolution of this. Research has shown that it is safe to breast feed after a CT scan, some people will have to wait 24 hours after. Please follow up with your primary care doctor in next 2-3 days and return to emergency department for trouble breathing, worsening or concerning symptoms. It was a pleasure taking care of you today. - Billing Disposition and Condition Condition: STABLE Disposition: Home - Attestation Statements Document Initiated by [facility]: Yes Documenting Scribe: Pamela Castro Provider For Whom [facility] is Documenting (Include Credential): Whitney Fish MD Scribe Attestation: I, Pamela Castro, scribed for Whitney Fish MD on 12/18/19 at 1447. Scribe Documentation Reviewed: Yes Provider Attestation: The documentation as recorded by the Pamela jones accurately reflects the service I personally performed and the decisions made by me, Whitney Fish MD Status of Scribe Document: Viewed
[2019-12-18 14:41] VITALS: BP 133/86
== END | disposition home or self-care (01) ==
LOC: ED 11:24
DX: J90 Pleural effusion, not elsewhere classified (principal); D64.9 Anemia, unspecified; Z87.442 Personal history of urinary calculi; Z88.5 Allergy status to narcotic agent
CPT/HCPCS: 36415; 71275; 80053; 84702; 85025; 85610; 93005; 99283; Q9967